=== PATIENT | female | born 1970 | race Caucasian/White ===

== ENCOUNTER 2023-06-16 07:45 | Emergency (ER) | payer OTHER, SELFPAY ==
--- NOTE | ~2023-06-16 | XR_ITS ---
XR chest 2V 06/16/2023 09:13 Indication: Cough and shortness of breath Procedure: 2 view chest Comparison: No prior studies for comparison. Findings: Cardiomegaly. Mild interstitial edema. No pleural effusion. No pneumothorax. No acute osseo us abnormality. Impression: 1: Cardiomegaly with mild interstitial edema. Reviewed, dictated and finalized at location B. ES PLAYER Impression: 1: Cardiomegaly with mild interstitial edema.
[2023-06-16 07:52] VITALS: BP 149/100; PULSE 102; RESP 18; TEMP 36.4; O2SAT 96
[2023-06-16 07:57] VITALS: O2SAT 96
[2023-06-16 08:39] VITALS: PULSE 102; RESP 20
[2023-06-16] MEDS: ALBUTEROL SULFATE NEB 2.5 MG/3 ML INH INHALATION (08:40)
[2023-06-16] MEDS: IPRATROPIUM BR 0.02% INH SOLN 0.5 MG/2.5 ML VIAL INHALATION (08:40)
[2023-06-16 08:42] LABS: Basophils Absolute Auto 0.1 K/mm3 (0.0-0.1); Basophils Percent Auto 0.4 % (0.2-1.2); Eosinophils Absolute Auto 0.5 K/mm3 (0-0.3); Eosinophils Percent Auto 2.8 % (0-4.4); Hematocrit 39.2 % (37.0-47.0); Hemoglobin 13.4 g/dL (12.0-15.0); Immature Granulocyte Absolute 0.16 K/mm3 (0.00-0.031); Lymphocytes Absolute Auto 1.93 K/mm3 (0.9-3.2); Lymphocytes Percent Auto 11.5 % (18.3-44.2); Mean Corpuscular HGB Conc 34.2 g/dl (32-36); Mean Platelet Volume 10.4 fl (7.4-10.4); Monocytes Absolute Auto 1.1 K/mm3 (0.1-0.6); Monocytes Percent Auto 6.8 % (2.6-8.5); Neutrophils Absolute Auto 12.9 K/mm3 (1.3-6.7); Neutrophils Percent Auto 77.5 % (45.5-73.1); Platelet Count Result 378 k/mm3 (150-375); Red Blood Count 3.53 M/mm3 (4.2-5.4); White Blood Count 16.7 K/mm3 (4.5-10.0)
[2023-06-16 08:50] LABS: Alanine Aminotransferase 18 U/L (6-35); Albumin Level 3.9 g/dL (3.5-5.1); Alkaline Phosphatase 98 U/L (38-126); Anion Gap 8 mmol/L (8-16); Aspartate Amino Transferase 20 U/L (14-36); Bilirubin,Total 0.5 mg/dL (0.2-1.3); Blood Urea Nitrogen 8 mg/dL (7-17); Carbon Dioxide 25 mmol/L (22-30); Chloride 104 mmol/L (98-107); Estimated CRCL calculation 83 ml/min; Estimated Glomerular Filt Rate > 60; Glucose 114 mg/dL (65-110); Potassium 3.6 mmol/L (3.4-5.0); Sodium 137 mmol/L (137-145)
--- NOTE | 2023-06-16 09:20 | ECG_ITS ---
Measurements Intervals [place] Rate: 85 P: 42 MS: 155 QRS: -76 QRSD: 97 T: 17 QT: 364 QTc: 435 Interpretive Statements SINUS RHYTHM INCOMPLETE RIGHT BUNDLE BRANCH BLOCK LEFT ANTERIOR FASCICULAR BLOCK ANTEROSEPTAL INFARCT, AGE INDETERMINATE BORDERLINE T WAVE ABNORMALITY- ANTEROLAT/INF LEADS ABNORMAL ECG NO PREVIOUS ECG AVAILABLE FOR COMPARISON Electronically Signed On 06-16-2023 10:30:06 PERMASTONE APPLICATOR by Jomar Roper D.O.
[2023-06-16 09:34] LABS: Platelet Estimate Adequate (Adequate); Schistocytes None Seen (NORMAL)
[2023-06-16 09:35] LABS: Large Platelets Present; Poikilocytosis 1+ (NORMAL)
[2023-06-16 09:50] LABS: NT Pro B Type Natriuretic Pept 100 pg/mL (19.9-100)
--- NOTE | 2023-06-16 11:53 | ED.GENADULT ---
HPI - General Adult General Chief complaint: Upper Respiratory Infection Stated complaint: sob, sick for a month Time Seen by Provider: 06/16/23 07:58 History of Present Illness HPI narrative: Patient is a 53-year-old female who presents ER with shortness of breath and cough. Reports she has been sick over last month. She has been on a couple rounds of antibiotics and has 1 Macrobid left for UTI. She has history of being immunocompromised due to her RA but she recently. Medications due to her illness. She is not currently taking any prednisone. No orthopnea. No lower extremity swelling. No chest pain or chest pressure. Related Data Home Medications Medication Instructions Recorded Confirmed leflunomide 20 mg tablet 20 mg PO DAILY 12/14/20 12/18/20 prednisone 5 mg tablet 5 mg PO DAILY 12/14/20 12/18/20 Allergies Allergy/AdvReac Type Severity Reaction Status Date / Time codeine AdvReac Intermediate GI UPSET Verified 06/16/23 08:36 Review of Systems Review of Systems: All systems reviewed & are unremarkable except as noted in HPI and below Constitutional: Constitutional: Denies chills, Reports fatigue and Denies fever(s) ENT: Denies nasal congestion and Denies sore throat Cardiovascular: Cardiovascular: Denies chest pain, Denies rapid heart rate and Denies radiating jaw, neck or arm pain Respiratory: Respiratory: Reports chest congestion, Reports cough, Reports dyspnea and Denies wheezing Gastrointestinal: Gastrointestinal: Denies abdominal pain, Denies nausea and Denies vomiting Genitourinary: Genitourinary: Reports no additional female genitourinary complaints PMFSH Past Medical History Medical History History of colon polyps History of vaginal delivery x 3 Psoriatic arthritis Rheumatoid arthritis Surgical History Surgical History History of carpal tunnel surgery bilateral 2004 History of colonoscopy with polypectomy 2018 History of decompression of ulnar nerve Bilateral 2004 History of dilation and curettage History of laparoscopy 1196 1996 History of tubal ligation 1991 [place] teeth removed 1998 Family History Family History Father Alcoholism Lung cancer Brain cancer Hypertension Cerebrovascular accident Mother Hypertension Sibling Alcoholism Grandparent Stomach cancer Skin cancer Malignant neoplasm of prostate Hypertension Social History Social History Smoking status: Current every day smoker Alcohol intake: never Substance use: never Living arrangements: with family Exam Narrative: GENERAL: Well-appearing, well-nourished, and in no acute distress. HEAD: Normocephalic, atraumatic. EYES: PERRL and EOMI. ENT: Mucous membranes moist. CHEST: Clear to auscultation. No respiratory distress. HEART: Regular rate and rhythm. Normal peripheral pulses. ABDOMEN: Soft, nontender, nondistended. EXTREMITIES: Normal range of motion. No edema. SKIN: Warm, dry, no rash. NEURO: Alert and oriented x3. PSYCH: Normal mood and affect. Course Course Emergency Course: Patient looks well with leukocytosis and abnormal chest x-ray. She is not hypoxic and has normal lung sounds. BMP within normal limits. Patient will be treated with Augmentin as well as doxycycline. Vital Signs Vital signs: Vital Signs Temperature 97.6 F 06/16/23 07:52 Pulse Rate 102 H 06/16/23 07:52 Respiratory Rate 18 06/16/23 07:52 Blood Pressure 149/100 H 06/16/23 07:52 Pulse Oximetry 96 06/16/23 07:52 Oxygen Delivery Room Air 06/16/23 07:52 Temperature 97.6 F 06/16/23 07:52 Pulse Rate 97 06/16/23 12:10 Respiratory Rate 18 06/16/23 12:10 Blood Pressure 150/96 H 06/16/23 12:10 Pulse Oximetry 99 06/16/23 12:10 Oxygen Delivery
[2023-06-16 12:10] VITALS: BP 150/96; PULSE 97; RESP 18; O2SAT 99
== END 2023-06-16 12:11 | disposition home or self-care (01) ==
PROVIDERS: Emergency Provider Emergency Medicine
DX: J18.9 Pneumonia, unspecified organism (principal); R94.31 Abnormal electrocardiogram [ECG] [EKG]; M06.9 Rheumatoid arthritis, unspecified
CPT/HCPCS: 36415; 71046; 80053; 83880; 85025; 93005; 94640; 99283

== ENCOUNTER 2023-08-13 18:15 | Observation (INO) | payer OTHER, SELFPAY ==
--- NOTE | ~2023-08-13 | CT_ITS ---
EXAMINATION: CTA brain carotid DATE: 08/14/2023 02:04 INDICATION: Left-sided ptosis. Headache. TECHNIQUE: Computed tomographic angiography (CTA) of the head was performed without and with 100 mL O mnipaque-350 intravenous contrast. CTA of the neck was performed with intravenous contrast. Automated exposure control and iterative reconstruction technique were employed. The dose-length product was 1 741.04 mGy-cm. Maximum intensity projection and volume rendered 3D-reconstructions were created by e technologist on a separate workstation. COMPARISON: None. FINDINGS: HEAD CTA: There is no intracranial hemorrhage, acute infarction, or abnormal intracranial mass lesion . The ventricles are normal in size. The orbits are normal. There is mild mucosal thickening in the e thmoid sinuses. The mastoid air cells are normal. Left vertebral artery is dominant. There is no sign ificant stenosis of basilar artery or the posterior cerebral arteries. The posterior communicating ar teries are normal. There is no significant stenosis of the intracranial internal carotid arteries or anterior or middle cerebral arteries. Anterior communicating artery is normal. There is no aneurysm. NECK CTA: There are nodules in thyroid measuring up to 11 mm, likely not clinically significant. Ther e are no pathologically enlarged lymph nodes. There is no significant stenosis of the vertebral arter ies. There is no visible plaque in the proximal internal carotid arteries. There is 0% stenosis of th e proximal right internal carotid artery relative to normal distal artery lumen diameter (NASCET crit eria). There is 0% stenosis of the proximal left internal carotid artery relative to normal distal ar abigail lumen diameter. There is mild cervical spondylosis. IMPRESSION: 1. Normal brain. No aneurysm or significant intracranial arterial stenosis. 2. 0% stenosis of the proximal internal carotid arteries relative to normal distal artery lumen diame ters (NASCET criteria). Reviewed, dictated and finalized at location E. CUTTING MACHINE OPERATOR IMPRESSION: 1. Normal brain. No aneurysm or significant intracranial arterial stenosis. 2. 0% stenosis of the proximal internal carotid arteries relative to normal dis moni artery lumen diameters (NASCET criteria).
--- NOTE | ~2023-08-13 | XR_ITS ---
EXAMINATION: XR chest 2V DATE: 08/14/2023 02:03 INDICATION: Left-sided ptosis. TECHNIQUE: Frontal and lateral views of the chest were obtained. COMPARISON: Chest 2 views 06/16/2023 FINDINGS: There is no pneumonia, pleural effusion, or pneumothorax. The heart size is normal. There i s mild chronic anterior wedging of T11 vertebral body. IMPRESSION: 1. No acute cardiopulmonary disease. Reviewed, dictated and finalized at location E. INUOUS IMPROVEMENT INTERN
--- NOTE | ~2023-08-13 | MR_ITS ---
EXAMINATION: MR brain/brain stem wo/w con DATE: 08/14/2023 08:01 INDICATION: Left-sided ptosis. Headache. TECHNIQUE: Magnetic resonance imaging (MRI) of the brain and brainstem was performed without and with 14 mL MultiHance intravenous contrast. COMPARISON: Head CT 08/14/2023 FINDINGS: There are scattered areas of nonspecific increased T2-weighted signal intensity in the cere bral white matter, which is within normal limits for the patient's age. There is no intracranial hemo rrhage, acute infarction, or abnormal intracranial mass lesion. The ventricles are normal in size. Th ere is mild mucosal thickening in the ethmoid sinuses. The mastoid air cells are normal. The orbits a re normal. IMPRESSION: 1. Normal aging brain. Reviewed, dictated and finalized at location E. NING TECHNICIAN IMPRESSION: 1. Normal aging brain.
[2023-08-13 18:23] VITALS: BP 177/97; PULSE 83; RESP 18; TEMP 36.9; O2SAT 100
[2023-08-14] VITALS (11 sets, daily range): BP systolic 141–183; BP diastolic 79–100; PULSE 65–85; RESP 14–18; TEMP 36.4–36.8; O2SAT 95–100
--- NOTE | 2023-08-14 00:10 | ECG_ITS ---
Measurements Intervals [place] Rate: 75 P: -25 IA: 154 QRS: -60 QRSD: 102 T: -4 QT: 415 QTc: 466 Interpretive Statements SINUS RHYTHM INCOMPLETE RIGHT BUNDLE BRANCH BLOCK LEFT ANTERIOR FASCICULAR BLOCK BORDERLINE T WAVE ABNORMALITY- ANT/INF LEADS BASELINE ARTIFACT- AVL, AVF ABNORMAL ECG COMPARED TO ECG 06/16/2023 09:56:30 NO SIGNIFICANT CHANGES Electronically Signed On 08-14-2023 6:35:39 RESPIRATORY THERAPY ASSISTANT by Jomar Roper D.O.
--- NOTE | 2023-08-14 00:14 | ED.GENADULT ---
HPI - General Adult General Chief complaint: Unspecified <ALEM Christy Last Filed: 08/14/23 03:29> Stated complaint: h/a, droopy left eye lid no other symptoms <ALEM Christy Last Filed: 08/14/23 03:29> Time Seen by Provider: 08/13/23 23:54 <ALEM Christy Last Filed: 08/14/23 03:29> History of Present Illness HPI narrative: 53-year-old female with a history of RA reports for evaluation for left eye ptosis that started today when she woke up. Patient states that she has been having headaches since February 02 that have progressively been getting worse. She states this morning she woke up with a severe headache and noticed left eyelid drooping. States she went to work and her co-worker pointed out which prompted her to come to the ED. she states her headache is all over and seems to extend down into her neck. She reports increased left-sided blurred vision especially at a distance but denies diplopia or loss of vision. She denies recent injury or trauma to this area or her head. She is not anticoagulated. Denies syncope, focal numbness or weakness, chest pain or shortness of breath, palpitations, recent medication changes , fever. patient states that she feels that the ptosis has worsened as the day has progressed. No prior history of myasthenia gravis <ALEM Christy Last Filed: 08/14/23 03:29> Related Data Home medications: Home Medications Medication Instructions Recorded Confirmed leflunomide 20 mg tablet 20 mg PO DAILY 12/14/20 08/14/23 azathioprine 50 mg tablet 50 mg PO DAILY 08/14/23 08/14/23 hydroxyzine HCl 25 mg tablet 25 mg PO TID PRN ITCHING 08/14/23 08/14/23 <ALEM Christy Last Filed: 08/14/23 03:29> Allergies/adverse reactions: Allergies Allergy/AdvReac Type Severity Reaction Status Date / Time codeine AdvReac Intermediate GI UPSET Verified 06/16/23 08:36 <ALEM Christy Last Filed: 08/14/23 03:29> Review of Systems Review of Systems: CONSTITUTIONAL: Denies fever, chills, or sweats. EYES: Denies visual changes, redness, or discharge. ENT: Denies rhinorrhea, congestion, sore throat, or otalgia. CARDIOVASCULAR: Denies chest pain, palpitations, or edema. RESPIRATORY: Denies cough or dyspnea. GASTROINTESTINAL: Denies abdominal pain, nausea, vomiting, or diarrhea. GENITOURINARY: Denies dysuria or hematuria. SKIN: Denies rash or itching. MUSCULOSKELETAL: Denies back pain, joint pain, or myalgia. NEUROLOGIC: see HPI PSYCHIATRIC: Denies anxiety or depression. <Stephanie Tom PA-C - Last Filed: 08/14/23 03:29> [facility] Past Medical History Medical History: Medical History History of colon polyps History of vaginal delivery x 3 Psoriatic arthritis Rheumatoid arthritis <Stephanie Tom PA-C - Last Filed: 08/14/23 03:29> Surgical History Surgical History: Surgical History History of carpal tunnel surgery bilateral 2004 History of colonoscopy with polypectomy 2018 History of decompression of ulnar nerve Bilateral 2005 History of dilation and curettage History of laparoscopy 1196 1996 History of tubal ligation 1991 [place] teeth removed 1998 <Stephanie Tom PA-C - Last Filed: 08/14/23 03:29> Family History Family History: Family History Father Alcoholism Lung cancer Brain cancer Hypertension Cerebrovascular accident Mother Hypertension Sibling Alcoholism Grandparent Stomach cancer Skin cancer Malignant neoplasm of prostate Hypertension <Stephanie Tom PA-C - Last Filed: 08/14/23 03:29> Social History Social History: Social History Smoking status: Former smoker Smoking end date: 06/13/23 Alcohol
[2023-08-14] MEDS: SODIUM CHLORIDE 0.9% IV 1,000 ML 999 ML IV CONT (00:44)
[2023-08-14] MEDS: diphenhydrAMINE HCl INJ 50 MG/ML VIAL 25 MG IV PUSH (00:44)
[2023-08-14] MEDS: ACETAMINOPHEN 500 MG TABLET 1000 MG PO (00:44)
[2023-08-14] MEDS: PROCHLORPERAZINE EDISYLATE 10 MG/2 ML VIAL IV PUSH (00:44)
[2023-08-14 00:46] LABS: Basophils Percent Auto 0.7 % (0.2-1.2); Eosinophils Absolute Auto 0.3 K/mm3 (0-0.3); Eosinophils Percent Auto 5.3 % (0-4.4); Hemoglobin 12.1 g/dL (12.0-15.0); Immature Granulocyte Absolute 0.01 K/mm3 (0.00-0.031); Immature Granulocyte Percent A 0.2 % (0-0.5); Mean Corpuscular HGB Conc 32.7 g/dl (32-36); Mean Corpuscular Hemoglobin 36.4 pg (26-34); Mean Corpuscular Volume 111.4 fl (80-100); Mean Platelet Volume 9.7 fl (7.4-10.4); Monocytes Absolute Auto 0.4 K/mm3 (0.1-0.6); Monocytes Percent Auto 7.4 % (2.6-8.5); Neutrophils Absolute Auto 2.1 K/mm3 (1.3-6.7); Neutrophils Percent Auto 37.4 % (45.5-73.1); Platelet Count Result 328 k/mm3 (150-375); Red Blood Count 3.32 M/mm3 (4.2-5.4); Red Cell Distribution Width 13.4 % (11.5-14.5); White Blood Count 5.5 K/mm3 (4.5-10.0)
[2023-08-14 01:04] LABS: Prothrombin Time 13.6 Seconds (11.1-14.7)
[2023-08-14 01:05] LABS: Partial Thromboplastin Time 31.9 SECONDS (22.3-36.8)
[2023-08-14 01:07] LABS: Macrocytosis 1+ (NORMAL); Platelet Estimate Adequate (Adequate); Schistocytes None Seen (NORMAL)
[2023-08-14 01:25] LABS: Alanine Aminotransferase 16 U/L (6-35); Alkaline Phosphatase 85 U/L (38-126); Anion Gap 6 mmol/L (8-16); Aspartate Amino Transferase 29 U/L (14-36); Bilirubin,Total 0.4 mg/dL (0.2-1.3); Blood Urea Nitrogen 13 mg/dL (7-17); Carbon Dioxide 27 mmol/L (22-30); Chloride 108 mmol/L (98-107); Estimated CRCL calculation 81 ml/min; Estimated Glomerular Filt Rate > 60; Glucose 91 mg/dL (65-110); Potassium 3.3 mmol/L (3.4-5.0); Sodium 141 mmol/L (137-145)
[2023-08-14 01:37] LABS: Troponin I < 0.012 ng/mL (0.000-0.034)
[2023-08-14 02:24] LABS: Appearance Urine Clear (Clear); Bilirubin Urine Negative (Negative); Blood Urine Negative (Negative); Color Urine Yellow (Yellow); Glucose Urine UA Negative (Negative); Ketones Urine Negative (Negative); Leukocyte Esterase Ur Negative LEU/UL (Negative); Nitrate Urine Negative (Negative); Protein Urine Negative (Negative); Specific Grav Ur 1.004 (1.001-1.035); Urobilinogen Urine 0.2 mg/dL (<2.0)
[2023-08-14] MEDS: POTASSIUM CHLORIDE 20 MEQ PACKET (FOR LIQUID) PO (02:25)
[2023-08-14 02:31] LABS: Add Urine Microscopic? NO
[2023-08-14 03:08] LABS: Magnesium 2.1 mg/dL (1.6-2.3)
[2023-08-14] MEDS: KETOROLAC 30 MG/ML VIAL (*BKC) IV PUSH (03:14)
--- NOTE | 2023-08-14 06:20 | ADMGEN ---
This patient, Elvira Morataya, was admitted to -. Patient/family oriented to hospital policies and general routines including ID bracelet, bed and alarms, visiting hours, pain management, procedures, bathroom and other care routines, personal items, smoking policy, room service/diet, and visiting hours. Information on how to activate the Rapid Response Team has been discussed. Patient/Family are encouraged to report perceived risks to care and to ask questions if they do not understand what they are told or what they should do.
--- NOTE | 2023-08-14 06:26 | ADMGEN ---
This patient, Elvira Morataya, was admitted to Medical Room 261-01. Patient/family oriented to hospital policies and general routines including ID bracelet, bed and alarms, visiting hours, pain management, procedures, bathroom and other care routines, personal items, smoking policy, room service/diet, and visiting hours. Information on how to activate the Rapid Response Team has been discussed. Patient/Family are encouraged to report perceived risks to care and to ask questions if they do not understand what they are told or what they should do.
[2023-08-14] MEDS: ACETAMINOPHEN 325 MG TABLET 650 MG PO ×2 (06:42→21:11)
--- NOTE | 2023-08-14 07:30 | PM.IMHP ---
H&P: HPI History of Present Illness Date/Time: 08/14/23 07:30 Chief Complaint: Left eyelid droop Narrative: 53-year-old female with hypertension, rheumatoid arthritis presented ED with a chief complaint of left eyelid drooping. Patient had a severe headache yesterday morning, a noted left eyelid drooping, patient denies focal weakness, unstable gait, head trauma, fever, chills nausea vomiting chest pain shortness of breath. Patient has blurred I vision of left eye. Patient denies vision loss, double vision. Patient came to ED for evaluation treatment. In the ED, patient was afebrile, uncontrolled blood pressure, ?CT head shows no hemorrhage, hydrocephalus, mass effect or herniation.? CTA? head and neck shows no acute occlusion, severe stenosis or aneurysm.? There is no evidence of dissection.? There is an 11 mm right thyroid gland nodule.? CBC without leukocytosis or anemia.? Chemistries show potassium of 3.3, chloride of 108, otherwise unremarkable.? Magnesium 2.1.? .? Urinalysis is unremarkable.? Troponin less than 0.012.? EKG. CBC shows sinus rhythm, incomplete right bundle-branch block, no ischemic changes. Patient received potassium chloride in the ED, we admit patient for further radiation treatment Review of Systems Review of Systems: ROS negative except above PMFSH Past Medical History Medical History History of colon polyps History of vaginal delivery x 3 Psoriatic arthritis Rheumatoid arthritis Surgical History Surgical History History of carpal tunnel surgery bilateral 2004 History of colonoscopy with polypectomy 2018 History of decompression of ulnar nerve Bilateral 2004 History of dilation and curettage History of laparoscopy 1196 1996 History of tubal ligation 1991 [place] teeth removed 1998 Family History Family History Father Alcoholism Lung cancer Brain cancer Hypertension Cerebrovascular accident Mother Hypertension Sibling Alcoholism Grandparent Stomach cancer Skin cancer Malignant neoplasm of prostate Hypertension Social History Social History Smoking status: Former smoker Smoking end date: 06/13/23 Alcohol intake: never Substance use: never Substance use type: does not use Do You Feel Safe in your Home?: Yes Lack of Transportation: No Lack of Food: Never True Current Housing: I Have Housing Concerned About Future Housing: No Difficulty Paying Gas/Electric Bills: No Difficulty Paying for Meds: No Currently Unemployed: No Education: Associate Degree Difficulty w/ Childcare or Family Care: No Living arrangements: with family Spiritual care concerns: No Meds Home Medications and Allergies Home Medications Medication Instructions Recorded Confirmed Type leflunomide 20 mg tablet 20 mg PO DAILY 12/14/20 08/14/23 History azathioprine 50 mg tablet 50 mg PO DAILY 08/14/23 08/14/23 History hydroxyzine HCl 25 mg tablet 25 mg PO TID PRN ITCHING 08/14/23 08/14/23 History Allergies Allergy/AdvReac Type Severity Reaction Status Date / Time codeine AdvReac Intermediate GI UPSET Verified 06/16/23 08:36 Vital Signs Vital Signs - 24 hr 08/13/23 18:23 08/14/23 01:28 08/14/23 04:10 Temperature 98.4 F Pulse Rate 83 74 77 Respiratory Rate 18 14 15 Blood Pressure 177/97 H 169/100 H 141/82 H Pulse Oximetry 100 98 97 Oxygen Delivery Room Air 08/14/23 05:41 08/14/23 06:40 08/14/23 06:54 Temperature 97.7 F Pulse Rate 77 65 Respiratory Rate 15 18 Blood Pressure 162/80 H 154/98 H 180/100 H Pulse Oximetry 96 100 Oxygen Delivery 08/14/23 06:59 Temperature Pulse Rate Respiratory Rate Blood Pressure Pulse Oximetry Oxygen Delivery Room Air Exam Narrative: GENERAL: [place]
[2023-08-14 08:26] LABS: Cholesterol 191 mg/dL (0-200); HDL Direct 67 mg/dL; Triglycerides 73 mg/dL (<150)
[2023-08-14] MEDS: ATORVASTATIN 40 MG TABLET PO (08:30)
[2023-08-14] MEDS: LEFLUNOMIDE 20 MG TABLET PO (08:30)
[2023-08-14] MEDS: azaTHIOprine 50 MG TABLET PO (08:30)
[2023-08-14 08:37] LABS: LDL Cholesterol Direct 92 mg/dL
[2023-08-14] MEDS: ASPIRIN 81 MG CHEWABLE TABLET 324 MG PO (08:37)
--- NOTE | 2023-08-14 09:42 | WPDNEURCNPN ---
Assessment and Plan Assessment and plan (1) Ptosis: Qualifiers: Laterality: left Qualified Code(s): H02.402 - Unspecified ptosis of left eyelid Code(s): H02.409 - Unspecified ptosis of unspecified eyelid Status: Acute (2) Headache: Qualifiers: Headache chronicity pattern: chronic headache Headache type: unspecified Intractability: not intractable Qualified Code(s): R51.9 - Headache, unspecified; G89.29 - Other chronic pain Code(s): R51.9 - Headache, unspecified Status: Acute (3) Hypertensive urgency: Code(s): I16.0 - Hypertensive urgency Status: Acute Plan Ms. Flowers is a 53 year old female with a history of rheumatoid arthritis presenting for evaluation of drooping of L eyelid that seemed to happen quite acutely. MRI brain was negative for stroke. On exam it looks more like she has dermatochalasis of L eyelid giving the appearance of pseudo-ptosis rather than true ptosis (the eyelid itself does not cover the pupil). However, the acute nature of the symptoms is unusual. She does not have any other symptoms suggestive of myasthenia gravis. - I would recommend close ophthalmology evaluation -- if they feel that this is true ptosis then I am happy to further work-up the cause of that. - Ok to normalize blood pressure, hypertension could be contributing to her headaches Consult date: 08/14/23 Reason for consult: L eyelid dropping HPI: Elvira Morataya is a 53 year old female with a history of RA presenting for evaluation of drooping of L eyelid. Patient reports that she woke-up yesterday and noticed that her L eyelid was drooping. It was actually pointed out to her by a colleague. She denied any other focal weakness, numbness, speech changes. She denies any double vision but does feel that the vision in her L eye is blurrier than baseline. She felt that the L eyelid drooping worsened throughout the day, which is what prompted her to be evaluated. In the ED, she was notably hypertensive with blood pressure up to 180s systolic. CT head and CTA sachi/carotid were negative. MRI brain was read as normal as well. Her blood pressure remains elevated, with it being 180/100 this morning. Patient denies any double vision, dysphagia, dysarthria, or weakness of the extremities. She denies any shortness of breath or difficulty breathing. She has a history of RA for which she takes leflunomide and azathioprine. Review of Systems Review of Systems: All systems reviewed & are unremarkable except as noted in HPI and below PMFSH Past Medical History Medical History History of colon polyps History of vaginal delivery x 3 Psoriatic arthritis Rheumatoid arthritis Surgical History Surgical History History of carpal tunnel surgery bilateral 2005 History of colonoscopy with polypectomy 2018 History of decompression of ulnar nerve Bilateral 2005 History of dilation and curettage History of laparoscopy 1196 1996 History of tubal ligation 1990 [place] teeth removed 1998 Family History Family History Father Alcoholism Lung cancer Brain cancer Hypertension Cerebrovascular accident Mother Hypertension Sibling Alcoholism Grandparent Stomach cancer Skin cancer Malignant neoplasm of prostate Hypertension Social History Social History Smoking status: Former smoker Smoking end date: 06/13/23 Alcohol intake: never Substance use: never Substance use type: does not use Do You Feel Safe in your Home?: Yes Lack of Transportation: No Lack of Food: Never True Current Housing: I Have Housing Concerned About Future Housing: No Difficulty Paying Gas/Electric Bills: No Difficulty Paying for Meds: No Currently Unemployed: No Education: Asso
--- NOTE | 2023-08-14 11:02 | ECHO_ITS ---
Patient Info Name: Elvira Morataya Age: 53 years : 1970 Gender: Female Ht: 60 in Wt: 160 lbs BSA: 1.78 m2 HR: 67 bpm BP: 183 / 97 mmHg Heart Rhythm: Sinus Rhythm Technical Quality: Good Exam Date: 08/14/2023 1:22 PM Exam Location: Echo Lab Patient Status: Outpatient Admit Date: 08/14/2023 Staff Ordering Physician: Karlos Glass MD Die Maintenance Technician: Sonia Lima RDCS Attending Provider: Ishaan Concepcion MD Exam Type: CA echo doppler w bubble study Study Info Indications - risk of TIA Complete two-dimensional, color flow and Doppler transthoracic echocardiogram is performed with agitated saline. Contrast/Agitated Saline Contrast/Ag. Saline: Agitated Saline Amount: 20.00 ml Summary 1. Normal left ventricular size and thickness with good contractility of all segments. Ejection fraction 65-70%. Normal diastolic function. 2. No significant valve disease. 3. Normal estimated pulmonary pressure. 4. No evidence of intracardiac shunting during normal respiration and Valsalva by bubble study. 5. The underlying rhythm is probably atrial fibrillation. Left Ventricle Left ventricular chamber dimension is normal. Left ventricular systolic function is normal, estimated at 65-70%. There is no increased left ventricular wall thickness. Left ventricular septal wall motion is normal. The left ventricular diastolic function is normal. Right Ventricle Right ventricular chamber dimension is normal. Right ventricular systolic function is normal. Left Atria Left atrial chamber dimension is normal. Right Atria Right atrial chamber dimension is normal. Aortic Valve The aortic valve is trileaflet. There is no aortic valve sclerosis. There is no aortic valve stenosis. There is no aortic valve regurgitation. Pulmonic Valve The pulmonic valve is normal. There is no pulmonic valve stenosis. There is no pulmonic regurgitation. Mitral Valve The mitral valve has normal leaflets. There is no mitral valve stenosis. There is trace mitral valve regurgitation. Tricuspid Valve The tricuspid valve leaflets are normal. There is no significant tricuspid valve stenosis. There is trace tricuspid valve regurgitation. No pulmonary hypertension, estimated pulmonary arterial systolic pressure is 21 mmHg. Pericardium/Pleural The pericardium appears normal. There is no pericardial effusion. Inferior Vena Cava Normal inferior vena cava with >50% collapse upon inspiration consistent with Empty right atrial pressure, 10 mmHg. Aorta The aortic root size at the sinus of Valsalva is normal. The prox ascending aorta size is normal. Left Ventricular Outflow Tract Name Value Normal LVOT 2D LVOT Diameter 1.8 cm LVOT Doppler LVOT Peak Gradient 4 mmHg LVOT Mean Gradient 2 mmHg LVOT VTI 20 cm LVOT VTI/AV VTI Ratio 0.7 LVOT Stroke Volume 53 ml LVOT CO 3.9 l/min LVOT CI 2.2 l/min/m2 Pulmonic Valve
[2023-08-14] MEDS: amLODIPine BESYLATE 5 MG TABLET 10 MG PO (15:51)
[2023-08-14] MEDS: hydroCHLOROthiazide 25 MG TABLET PO (15:51)
[2023-08-14] MEDS: oxyCODONE HCL (*CRX) 5 MG TAB IR PO (15:54)
[2023-08-15] MEDS: hydrOXYzine HCL 25 MG TABLET PO (05:46)
[2023-08-15 05:58] VITALS: BP 148/97; PULSE 95; RESP 18; TEMP 36.8; O2SAT 97
--- NOTE | 2023-08-15 08:39 | PM.IMPN ---
Progress Note: A&P Assessment and Plan (1) TIA (transient ischemic attack): Code(s): G45.9 - Transient cerebral ischemic attack, unspecified Status: Acute (2) Ptosis: Qualifiers: Laterality: left Qualified Code(s): H02.402 - Unspecified ptosis of left eyelid Code(s): H02.409 - Unspecified ptosis of unspecified eyelid Status: Acute (3) Headache: Qualifiers: Headache chronicity pattern: chronic headache Headache type: unspecified Intractability: not intractable Qualified Code(s): R51.9 - Headache, unspecified; G89.29 - Other chronic pain Code(s): R51.9 - Headache, unspecified Status: Acute (4) Hypertensive urgency: Code(s): I16.0 - Hypertensive urgency Status: Acute Plan 53-year-old female with? hypertension, rheumatoid arthritis presented ED with a chief complaint of left eyelid drooping.? Patient had a severe headache yesterday morning, a noted left eyelid drooping, patient denies focal weakness, unstable gait, head trauma, fever, chills nausea vomiting chest pain shortness of breath.? Patient has blurred I vision of left eye.? Patient denies vision loss, double vision.? Patient came to ED for evaluation treatment.? In the ED, patient was afebrile, uncontrolled blood pressure, ?CT head shows no hemorrhage, hydrocephalus, mass effect or herniation.? CTA? head and neck shows no acute occlusion, severe stenosis or aneurysm.? There is no evidence of dissection.? There is an 11 mm right thyroid gland nodule.? CBC without leukocytosis or anemia.? Chemistries show potassium of 3.3, chloride of 108, otherwise unremarkable.? Magnesium 2.1.? .? Urinalysis is unremarkable.? Troponin less than 0.012.? EKG. CBC shows sinus rhythm, incomplete right bundle-branch block, no ischemic changes.? Patient received potassium chloride in the ED, we admit patient for further radiation treatment Left ptosis Patient had a sudden onset left eyelid droop, blurred vision, no focal weakness CT head and CTA HEAD AND neck unremarkable shows no acute intracranial issues or large vessel occlusion Possible TIA Order MRI of brain with without contrast, echocardiogram with bubble study Telemetry monitoring Aspirin 325 mg once, 81 mg daily p.o., Lipitor 40 mg daily p.o., follow lipid panel Neuro check fall precaution Consult neurologist 08/15: MR of brain showed normal aging brain has rule out stroke Left the ptosis has resolved Patient has an appointment with circus hand next week Headache Unclear etiology no history of migraine, trauma, possible due to uncontrolled hypertension MRI of the brain is ordered, shows normal aging brain Hypertension urgency ruled out stroke, resume home medication for hypertension Blood pressure is better controlled, continue amlodipine 10 mg daily p.o., hydrochlorothiazide 25 mg daily p.o., add losartan 50 mg once and daily p.o. Hypokalemia associated with hydrochlorothiazide start potassium chloride supplement Rheumatoid arthritis Continue home medications Continue azathioprine 50 mg daily p.o., leflunomide 20 mg daily p.o. Subjective Date/time seen: 08/15/23 08:39 Interval history: I saw and examined patient today. Left-sided ptosis has resolved. Headaches improving, blood pressure is better controlled. Patient denies focal weakness, vision change, Exam Narrative: GENERAL: Pleasant, in no acute distress. Well-nourished. - EYES: EOMI. Anicteric. Left eyelid droop, improving - HENT: Moist mucous membranes. - LUNGS: Clear to auscultation bilaterally, no wheezing, rhonchi, or rales. - CARDIOVASCULAR: Regular rate and rhythm. No murmur. No JVD. - ABDOMEN: Soft, non-tender and non-distended. No palpable masses. - EXTREMITIES: No edema. Peripheral pulses 2+. Non-tender. - NEUROLOGIC: No focal neurological deficits. CN II-XII grossly intact. - PSYCHIATRIC: Awake, Alert and oriented x 3. Appropriate mood and affect. - SKIN: No rashes or lesion
[2023-08-15 08:43] VITALS: BP 152/100; TEMP 37.7
[2023-08-15] MEDS: hydroCHLOROthiazide 25 MG TABLET PO (08:49)
[2023-08-15] MEDS: ASPIRIN 81 MG CHEWABLE TABLET PO (08:49)
[2023-08-15] MEDS: oxyCODONE HCL (*CRX) 5 MG TAB IR PO (08:49)
[2023-08-15] MEDS: LEFLUNOMIDE 20 MG TABLET PO (08:50)
[2023-08-15] MEDS: azaTHIOprine 50 MG TABLET PO (08:50)
[2023-08-15] MEDS: ATORVASTATIN 40 MG TABLET PO (08:50)
[2023-08-15] MEDS: amLODIPine BESYLATE 5 MG TABLET 10 MG PO (08:50)
[2023-08-15] MEDS: LOSARTAN POTASSIUM 50 MG TABLET PO (08:58)
[2023-08-15] MEDS: POTASSIUM CHLORIDE 20 MEQ PACKET (FOR LIQUID) 40 MEQ PO (08:58)
--- NOTE | 2023-08-15 09:21 | WPDNEUROPN ---
Progress Note: A&P Assessment and Plan (1) Hypertensive urgency: Code(s): I16.0 - Hypertensive urgency Status: Acute (2) Ptosis: Qualifiers: Laterality: left Qualified Code(s): H02.402 - Unspecified ptosis of left eyelid Code(s): H02.409 - Unspecified ptosis of unspecified eyelid Status: Acute Plan Ms. Flowers is a 53 year old female with a history of rheumatoid arthritis presenting for evaluation of drooping of L eyelid that seemed to happen quite acutely. MRI brain was negative for stroke. On exam it looks more like she has dermatochalasis of L eyelid giving the appearance of pseudo-ptosis rather than true ptosis (the eyelid itself does not cover the pupil). However, the acute nature of the symptoms is unusual. She does not have any other symptoms suggestive of myasthenia gravis. - Ok to discharge, - Follow-up in [facility] clinic in about 3 months Subjective Date/time seen: 08/15/23 09:21 Interval history: Elvira Morataya is a 53 year old female with a history of RA presenting for evaluation of drooping of L eyelid. Patient reports that she woke-up yesterday and noticed that her L eyelid was drooping. It was actually pointed out to her by a colleague. She denied any other focal weakness, numbness, speech changes. She denies any double vision but does feel that the vision in her L eye is blurrier than baseline. She felt that the L eyelid drooping worsened throughout the day, which is what prompted her to be evaluated. In the ED, she was notably hypertensive with blood pressure up to 180s systolic. CT head and CTA sachi/carotid were negative. MRI brain was read as normal as well. Her blood pressure remains elevated, with it being 180/100 this morning. Patient denies any double vision, dysphagia, dysarthria, or weakness of the extremities. She denies any shortness of breath or difficulty breathing. She has a history of RA for which she takes leflunomide and azathioprine. Patient's eyelid drooping has resolved. Blood pressure is better too but still elevated to 140-150s systolic. Review of Systems Review of Systems: All systems reviewed & are unremarkable except as noted in HPI and below Exam Const: General: comfortable and no acute distress HENMT: Mouth: Yes moist mucous membranes Eyes: Pupils: Equal, round and reactive pupils present EOM: EOMs intact bilaterally Other: Symmetric eyelids. No ptosis noted. Resp: Effort & Inspection: normal respiratory effort Skin: General skin exam: normal color Neuro: Other: Pupils equal and reactive bilaterally, EOMI, face symmetric, facial sensation intact, tongue protrudes midline, palate midline. Shoulder shrug normal. Strength 5/5 throughout. Sensation intact throughout, FNF normal bilaterally. Language comprehension and fluency intact. Gait deferred. Extrem: General: normal to inspection Psych: Mental Status: mental status grossly normal Affect: normal affect Objective Data Vital Signs Vital Signs: Vital Signs - 24 hr 08/14/23 11:41 08/14/23 14:41 08/14/23 16:44 Temperature 36.8 C 36.4 C L 36.5 C Pulse Rate 67 70 74 Respiratory Rate 16 16 18 Blood Pressure 183/97 H 178/98 H 152/95 H Pulse Oximetry 98 95 100 Oxygen Delivery 08/14/23 20:13 08/14/23 21:25 08/15/23 05:58 Temperature 36.6 C 36.8 C Pulse Rate 85 95 Respiratory Rate 18 18 Blood Pressure 148/79 H 148/97 H Pulse Oximetry 98 98 97 Oxygen Delivery Room Air 08/15/23 08:43 Temperature 37.7 C H Pulse Rate Respiratory Rate Blood Pressure 152/100 H Pulse Oximetry Oxygen Delivery Intake/Output Intake/Output: Intake & Output 08/12/23 08/13/23 08/14/23 08/15/23 23:59 23:59 23:59 23:59 Intake Total 1720 Balance 1720 Meds/Results Medications: Active Medications Generic Name Dose Route Start Last Admin Trade Name Freq PRN Reason Stop Dose Admin Acetaminophen 650 mg 08/14/23 08:06 08/14/23 21:11 Pelon
[2023-08-15 09:50] VITALS: BP 144/84
--- NOTE | 2023-08-15 10:35 | PM.DS ---
DS: Admitting Diagnosis Discharge Date 08/15/23 Admitting Diagnosis (1) TIA (transient ischemic attack): ?Code(s): G45.9 - Transient cerebral ischemic attack, unspecified ?Status:?Acute (2) Ptosis: ?Qualifiers: ?Laterality:?left? Qualified Code(s):?H02.402 - Unspecified ptosis of left eyelid ?Code(s): H02.409 - Unspecified ptosis of unspecified eyelid ?Status:?Acute (3) Headache: ?Qualifiers: ?Headache chronicity pattern:?chronic headache??Headache type:?unspecified??Intractability:?not intractable? Qualified Code(s):?R51.9 - Headache, unspecified; G89.29 - Other chronic pain ?Code(s): R51.9 - Headache, unspecified ?Status:?Acute (4) Hypertensive urgency: ?Code(s): I16.0 - Hypertensive urgency ?Status:?Acute DS: Discharge Diagnosis Discharge Diagnosis (1) TIA (transient ischemic attack): Code(s): G45.9 - Transient cerebral ischemic attack, unspecified Status: Acute (2) Ptosis: Qualifiers: Laterality: left Qualified Code(s): H02.402 - Unspecified ptosis of left eyelid Code(s): H02.409 - Unspecified ptosis of unspecified eyelid Status: Acute (3) Headache: Qualifiers: Headache chronicity pattern: chronic headache Headache type: unspecified Intractability: not intractable Qualified Code(s): R51.9 - Headache, unspecified; G89.29 - Other chronic pain Code(s): R51.9 - Headache, unspecified Status: Acute (4) Hypertensive urgency: Code(s): I16.0 - Hypertensive urgency Status: Acute DS: Summary Hospital Course Hospital Course: 53-year-old female with? hypertension, rheumatoid arthritis presented ED with a chief complaint of left eyelid drooping.? Patient had a severe headache yesterday morning, a noted left eyelid drooping, patient denies focal weakness, unstable gait, head trauma, fever, chills nausea vomiting chest pain shortness of breath.? Patient has blurred I vision of left eye.? Patient denies vision loss, double vision.? Patient came to ED for evaluation treatment.? In the ED, patient was afebrile, uncontrolled blood pressure, ?CT head shows no hemorrhage, hydrocephalus, mass effect or herniation.? CTA? head and neck shows no acute occlusion, severe stenosis or aneurysm.? There is no evidence of dissection.? There is an 11 mm right thyroid gland nodule.? CBC without leukocytosis or anemia.? Chemistries show potassium of 3.3, chloride of 108, otherwise unremarkable.? Magnesium 2.1.? .? Urinalysis is unremarkable.? Troponin less than 0.012.? EKG. CBC shows sinus rhythm, incomplete right bundle-branch block, no ischemic changes.? Patient received potassium chloride in the ED, we admit patient for further radiation treatment Left ptosis Patient had a sudden onset left eyelid droop, blurred vision, no focal weakness CT head and CTA HEAD AND neck unremarkable shows no acute intracranial issues or large vessel occlusion Possible TIA Order MRI of brain with without contrast, echocardiogram with bubble study Telemetry monitoring Aspirin 325 mg once, 81 mg daily p.o., Lipitor 40 mg daily p.o., follow lipid panel Neuro check fall precaution Consult neurologist 08/15: MR of brain showed normal aging brain has rule out stroke Left the ptosis has resolved 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 Hypokalemia associated with hydrochlorothiazide start potassium chloride supplement Rheumatoid arthritis Continue home medications Continue azathioprine 50 mg daily p.o., leflunomide 20 mg daily p.o.
[2023-08-15 11:23] LABS: Anion Gap 7 mmol/L (8-16); Blood Urea Nitrogen 11 mg/dL (7-17); Calcium 9.5 mg/dL (8.4-10.2); Carbon Dioxide 27 mmol/L (22-30); Chloride 105 mmol/L (98-107); Estimated CRCL calculation 81 ml/min; Estimated Glomerular Filt Rate > 60; Glucose 94 mg/dL (65-110); Potassium 4.4 mmol/L (3.4-5.0); Sodium 139 mmol/L (137-145)
== END 2023-08-15 12:02 | disposition home or self-care (01) ==
LOC: ANHED 08-14 03:28 → ANH2MED 08-14 13:41
PROVIDERS: Admitting Provider Internal Medicine; Emergency Provider Physician Assistant; PCP Family Medicine; Visit Provider Hospitalist
DX: G45.9 Transient cerebral ischemic attack, unspecified (principal); H02.402 Unspecified ptosis of left eyelid; R51.9 Headache, unspecified; I16.0 Hypertensive urgency; M06.9 Rheumatoid arthritis, unspecified; E87.6 Hypokalemia; L40.50 Arthropathic psoriasis, unspecified; E04.1 Nontoxic single thyroid nodule; I45.10 Unspecified right bundle-branch block; I44.4 Left anterior fascicular block; Z79.899 Other long term (current) drug therapy
CPT/HCPCS: 36415; 70496; 70498; 70553; 71046; 80048; 80053; 80061; 81003; 83735; 84484; 85025; 85610; 85730; 93005; 93306; 96361; 96374; 96375; 99285; A9270; A9577; G0378; J0780; J1200; J1885; J7030; Q9967

== ENCOUNTER 2023-10-21 11:14 | Outpatient (CLI) | payer OTHER, SELFPAY ==
--- NOTE | ~2023-10-21 | US_ITS ---
US soft tissue head and neck INDICATION: Sore throat for 4 months. TECHNIQUE: Real-time sonographic images of the thyroid gland were obtained. COMPARISON: No prior studies for comparison. FINDINGS: The right thyroid lobe measures 5.6 x 1.9 x 1.7 cm. The left thyroid lobe measures 4.6 x 1 .4 x 1.6 cm. There is normal echotexture and echogenicity throughout the thyroid gland. In the right lower there is a 1.4 cm cyst. There is a 6 mm cyst at the right lobe. In the left neck there is an ov al hypoechoic mass measuring 3.3 x 1.8 x 1.0 cm with effacement of the fatty hilum. There are additio nal smaller bilateral cervical lymph nodes, largest on the right measuring 2.7 x 1.8 x 0.8 cm. In the left lobe there is a 5 mm hypoechoic mass which is wider than tall, smoothly marginated, solid and n o echogenic foci. There are additional similar-appearing nodules in the left lobe, largest measuring 7 mm which is hypoechoic, wider than tall, smoothly marginated without echogenic foci, TR 4. Normal v ascular flow is present. IMPRESSION: 1. Bilateral cervical lymphadenopathy, many of which the lymph nodes have effacement of the fatty hi lum. Consider correlation with CT neck with contrast. 2: Bilateral thyroid nodules, likely benign multinodular goiter. Reviewed, dictated and finalized at location B. IMPRESSION: 1. Bilateral cervical lymphadenopathy, many of which the lymph nodes have effa cement of the fatty hilum. Consider correlation with CT neck with contrast. 2: Bilateral thyroid nodules, likely benign multinodular goiter.
== END 2023-10-21 11:15 ==
PROVIDERS: PCP Nurse Practitioner Family; Visit Provider Nurse Practitioner Family
DX: E04.2 Nontoxic multinodular goiter (principal); R59.0 Localized enlarged lymph nodes
CPT/HCPCS: 76536

== ENCOUNTER 2023-11-04 12:44 | Outpatient (CLI) | payer OTHER, SELFPAY ==
--- NOTE | ~2023-11-04 | CT_ITS ---
CT scan of the Neck Technique: 2.5 mm axial scans were obtained through the neck after intravenous administration of 75 c c Omnipaque 350. Coronal and sagittal reconstructions of the neck were obtained. Dose reduction techn ique was used on this scan by utilizing automated exposure control and iterative reconstruction techn ique. The dose-length product (DLP) was 360.85 mGy-cm. Clinical History: Cervical lymphadenopathy Findings: There are mildly enlarged bilateral level 2 cervical lymph nodes, nonspecific. Parapharyngeal spaces appear normal bilaterally. The parotid and submandibular glands appear normal. Possible pharyngitis, with mild thickening of the soft tissues of the pharynx.. No soft tissue masses are seen in the neck. The thyroid gland appears normal. Images of the lung apices reveal no abnormalities. Impression: Mildly enlarged bilateral level 2 cervical lymph nodes, nonspecific. Correlate for inflammatory/react latanya lymph nodes versus any possibility of lymphoma or other metastatic disease. Possible pharyngitis, as above. Reviewed, dictated and finalized at location . Impression: Mildly enlarged bilateral level 2 cervical lymph nodes, nonspecific. Correlate for inflammatory/reactive lymph nodes versus any possibility of lymphoma or oth er metastatic disease. Possible pharyngitis, as above.
[2023-11-04 13:03] LABS: Estimated Glomerular Filt Rate > 60
== END 2023-11-04 12:45 ==
LOC: MICIMG 12:45
PROVIDERS: PCP Family Medicine; Visit Provider Family Medicine
DX: R59.0 Localized enlarged lymph nodes (principal)
CPT/HCPCS: 70491; Q9967

== ENCOUNTER 2024-09-30 14:49 | Emergency (ER) | payer OTHER, SELFPAY ==
--- NOTE | 2024-09-30 14:53 | ED_ITS ---
HPI - Ear Problem General Chief complaint: Ear Stated complaint: bilateral Ear Pain Time Seen by Provider: 09/30/24 15:00 Source: patient Mode of arrival: ambulatory Limitations: no limitations History of Present Illness HPI Narrative: Elvira is a 54-year-old female patient presenting to the clinic today with complaints of bilateral ear fullness and dizziness. She reports her symptoms started last night while she was at work. States she took 600 mg of ibuprofen this morning for the discomfort. States that her left ear is worse than the right. [place] as though the room was spinning last night when she was lying down for bed. Feels unsteady on her feet today-feels as though she wants to walk sideways. Denies any visual changes, chest pain, shortness breath, or headache. No associated nausea or vomiting. She states she has nasal drainage/sinus congestion year round. History of RA. She denies any history of diabetes. No urinary symptoms Related Data Home Medications ?Medication ?Instructions ?Recorded ?Confirmed ?Last Taken ?Type leflunomide 20 mg tablet 20 mg PO DAILY 12/14/20 08/14/23 Unknown History azathioprine 50 mg tablet 50 mg PO DAILY 08/14/23 08/14/23 Unknown History certolizumab pegol 200 mg/mL 200 mg subcut ONCE 09/30/24 09/30/24 Unknown History subcutaneous syringe kit (Cimzia) Allergies Allergy/AdvReac Type Severity Reaction Status Date / Time codeine AdvReac Intermediate GI UPSET Verified 09/30/24 14:56 Review of Systems Review of Systems: Pertinent positives per HPI. Patient denies any fever, chills, rash, headache, visual changes, cough, shortness of breath, chest pain, palpitations, nausea, vomiting, diarrhea, constipation, abdominal pain, or any urinary issues. [facility] Past Medical History Medical History History of vaginal delivery x 3 History of colon polyps Rheumatoid arthritis Psoriatic arthritis Surgical History Surgical History History of decompression of ulnar nerve Bilateral 2005 History of carpal tunnel surgery bilateral 2004 [place] teeth removed 1998 History of tubal ligation 1990 History of laparoscopy 1196 1996 History of colonoscopy with polypectomy 2018 History of dilation and curettage Family History Family History Father Alcoholism Lung cancer Brain cancer Hypertension Cerebrovascular accident Mother Hypertension Sibling Alcoholism Grandparent Stomach cancer Skin cancer Malignant neoplasm of prostate Hypertension Social History Social History Smoking status: Former smoker Smoking end date: 06/13/23 Alcohol intake: never Substance use: never Substance use type: does not use Do You Feel Safe in your Home?: Yes Lack of Transportation: No Lack of Food: Never True Current Housing: I Have Housing Concerned About Future Housing: No Difficulty Paying Gas/Electric Bills: No Difficulty Paying for Meds: No Currently Unemployed: No Education: Associate Degree Difficulty w/ Childcare or Family Care: No Living arrangements: with family Spiritual care concerns: No Comments At the time of my signature, I reviewed and agree with the nursing past medical, surgical, social, and family history. There is no relevant family history pertinent to the patient complaint. Exam Narrative: General: Well-developed, well nourished, in no apparent distress Head: Normocephalic, atraumatic Eyes: Pupils equally round and reactive to light bilaterally, EOM intact, sclera and conjunctive clear, no discharge, lids normal, no nystagmus Ears: TMs intact and congested, ear canals clear, no drainage, grossly hearing normal. Nose: Nares patent, no discharge, no inflammation, no sinus tenderness. Mouth: Oropharynx without lesions or masses, good dentition, MMM. Tongue midline, even rise and fall of uvula Neck: Supple, trachea midline, no enlargement of anterior or posterior cervical nodes, no thyroid masses or goiter palpable. Cardio: Regular rate and rhythm, s1 and s2 normal, no murmur appreciated. Resp: Clear to auscultation bilaterally anteriorly and posteriorly, no rhonchi, rales, wheezing or rubs Musculoskeletal: No deformity, non-tender to palpation, grossly normal range of motion, muscle strength strong and equal, peripheral pulse strong, no edema, no cyanosis, normal gait and station Neuro: Alert and oriented x4 with normal speech, no focal deficits, cranial nerves I through XII intact, muscle strength 5 out of 5, sensation intact bilaterally, negative Romberg test Course Course Emergency Course: Portions of this record may have been created with voice recognition software. Level of Care: Express Care Visit Vital Signs Vital signs: Vital Signs Temperature 36.2 C L 09/30/24 14:56 Pulse Rate 72 09/30/24 14:56 Respiratory Rate 18 09/30/24 14:56 Blood Pressure 142/91 H 09/30/24 14:56 Pulse Oximetry 100 09/30/24 14:56 Oxygen Delivery Room Air 09/30/24 14:56 Temperature 36.2 C L 09/30/24 14:56 Pulse Rate 72 09/30/24 14:56 Respiratory Rate 18 09/30/24 14:56 Blood Pressure 142/91 H 09/30/24 14:56 Pulse Oximetry 100 09/30/24 14:56 Oxygen Delivery Room Air 09/30/24 14:56 Vital signs reviewed Medical Decision Making MDM Narrative Medical decision making narrative: At the time of visit patient is resting comfortably on the exam table. Patient appears to be nontoxic. Plan: Neuro exam is normal in the clinic today. Patient's blood pressure is elevated but she has not taken her blood pressure medications today. She denies any headache, visual changes, shortness of breath, or chest pain. No history of diabetes and denies any urinary symptoms. I suspect patient is likely suffering from vertigo. Prescription for meclizine was sent to the pharmacy. Supportive measures were discussed with the patient and they voiced understanding discharge instructions and agrees to treatment plan. Return precautions reviewed Differential Diagnosis Differential Diagnosis: Otitis media, otitis externa, eustachian tube dysfunction, vertigo, BPPV, TIA, CVA Vital Signs Vital Signs: Vital Signs Temperature 36.2 C L 09/30/24 14:56 Pulse Rate 72 09/30/24 14:56 Respiratory Rate 18 09/30/24 14:56 Blood Pressure 142/91 H 09/30/24 14:56 Pulse Oximetry 100 09/30/24 14:56 Oxygen Delivery Room Air 09/30/24 14:56 Temperature 36.2 C L 09/30/24 14:56 Pulse Rate 72 09/30/24 14:56 Respiratory Rate 18 09/30/24 14:56 Blood Pressure 142/91 H 09/30/24 14:56 Pulse Oximetry 100 09/30/24 14:56 Oxygen Delivery Room Air 09/30/24 14:56 Discharge Plan Discharge Clinical Impression: Vertigo Patient Disposition: Home, Self-Care Condition: Stable Instructions: Antibiotic Form, Vertigo (ED) Additional Instructions: Neuro exam was normal in the clinic today Take meclizine as prescribed for vertigo Increase fluids and stay well hydrated May use flonase and OTC antihistamine such as Zyrtec or Claritin for nasal congestion Continue current medications as prescribed You have an elevated blood pressure in the clinic today and I recommend follow- up with primary care physician to have this reevaluated within the next week if symptoms persist. [place] [employer] guidelines state that normal blood pressure is 120/80 or less. Anything over 120/80 is considered elevated and should be monito red. You may need to decrease you salt intake and eat a heart healthy diet to help lower you blood pressure, other treatments would include decreasing stress, weight loss, stop caffeine, and quit smoking. Your primary care provider can determine whether you need to start antihypertensive medications. Untreated high blood pressure can cause dizziness, headaches, visual changes, blindness, kidney failure, stroke, heart attack, and male impotence. Patient Language: Bahamian Prescriptions: New meclizine 25 mg tablet 25 mg PO TID PRN (Reason: dizziness or vertigo) 7 Days Qty: 21 0RF No Action Cimzia 200 mg/mL syringe kit 200 mg subcut ONCE leflunomide 20 mg tablet 20 mg PO DAILY azathioprine 50 mg tablet 50 mg PO DAILY amlodipine [Norvasc] 5 mg Tablet 10 mg PO QAM Qty: 60 0RF Follow-up/Referrals: Dallin,Hayley Jimenez BROACH OPERATOR [Primary Care Provider] - Stand Alone Forms: Work/School Release IP Time of Disposition: 15:06 Quality NIHSS Nursing Documentation ED NIHSS nursing documentation: reviewed/agree
[2024-09-30 14:56] VITALS: BP 142/91; PULSE 72; RESP 18; TEMP 36.2; O2SAT 100
--- OUTSIDE RECORDS SUMMARY | 2024-09-30 16:09 | XMS_ITS | Clinical Summary ---
Author Organization [facility] Address [address] [place] [address] Care Team Providers Care Loss Prevention Guard Name Role Phone Bolivar Rowland NP Primary Care Provider [phone] Allergies No known active allergies Medications hyoscyamine (LEVSIN) 0.125 mg tabletIndications: Urinary Incontinence Take 1 tablet (0.125 mg total) by mouth every 6 (six) hours as needed for cramping. 15 tablet 09/17/19 19 Active Additional Information Patient not taking.Reported on 10/18/2022 ondansetron ODT (ZOFRAN-ODT) 4 mg disintegrating tablet Dissolve 1-2 tablets oral every 8 hours as needed for nausea or vomiting. 15 tablet 09/17/19 19 Active polyethylene glycol (MIRALAX) 17 gram/dose powder Mix 1 scoop (17 g) in 8 oz of water and drink daily. 527 g 09/17/19 19 Active Additional Information Patient not taking.Reported on 05/20/2019 ketoconazole (NIZORAL) 2 % shampoo Apply topically once a week 02/26/20 18 Active multivitamin tablet Take 1 tablet by mouth daily Active folic acid (FOLVITE) 1 mg tablet Take 1,000 mcg by mouth daily 2 02/19/20 19 Active FIBER-CAPS, PSYLLIUM HUSK, ORAL Take by mouth daily Active omeprazole (PriLOSEC) 40 mg capsuleIndications :Epigastric abdominal pain TAKE 1 CAPSULE BY MOUTH EVERY DAY 30 capsule 3 07/29/19 20 Active azaTHIOprine (IMURAN) 50 mg tablet Take 150 mg by mouth daily 04/08/20 21 Active cholecalciferol (VITAMIN D-3) 25 mcg (1,000 unit) tablet Take 1 Units by mouth daily Active leflunomide (ARAVA) 20 mg tablet Take 20 mg by mouth daily 09/17/19 23 Active lisinopril-hydroCH LOROthiazide (ZESTORETIC) 10-12.5 mg per tablet Take 1 tablet by mouth daily 10/01/19 23 Active Active Problems Problem Noted Date Diagnosed Date Encounter for smoking cessation counseling 05/20 Intestinal metaplasia of gastric mucosa 05/20/20 19 Personal history of Helicobacter infection 02/25 Personal history of colonic polyps 02/25/2019 Dyspepsia 02/25/2019 Multiple benign melanocytic nevi of upper extremity, lower extremity, and trunk 03/28/2018 Tinea versicolor 03/28/2018 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 SK (seborrheic keratosis) 03/28/2018 Resolved Problems Problem Noted Date Diagnosed Date Resolved Date Melena 02/25/2019 05/20/2019 Immunizations Immunization Administration Dates Next Due TD Preservative Free 12/08/2012 Surgical History Surgery Date Site/Laterality Comments HYSTERECTOMY Medical History Medical History Date Comments Osteoarthritis GERD (gastroesophageal reflux disease) Duodenal ulcer Liver disease hepatitis as chi ld History of transfusion Ovarian cyst Family History Medical History Relation Name Comments Rheum arthritis Brother Lung cancer Father Cancer Maternal Grandfather Cancer Maternal Grandmother Stomach cancer Mother's Sister Cancer Paternal Grandfather Cancer Paternal Grandmother Relation Name Status Comments Brother Father Maternal Grandfather Maternal Grandmother Mother's Sister Paternal Grandfather Paternal Grandmother Social History Tobacco Use Types Packs/Day Years Used Date Smoking Tobacco: Former Cigarettes 0 Smokeless Tobacco: Never Tobacco Cessation:Counseling Given: Not Answered Alcohol Use Standard Drinks/Week Comments Not Currently 0 (1 standard drink = 0.6 oz pur e alcohol) Personal Safety Answer Date Recorded Have you ever been in or are you currently in a harmful physical or emotional relationship or is someone making you feel afraid or unsafe? 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 Respiratory Rate 19 09/02/2023 12:30 PM MARKET ANALYSIS DIRECTOR Oxygen Saturation 99% 09/02/2023 12:30 PM MARKET ANALYSIS DIRECTOR Inhaled Oxygen Concentration - - Weight 72.6 kg (160 lb) 09/02/2023 9:30 AM MARKET ANALYSIS DIRECTOR Height 152.4 cm (5') 09/02/2023 9:30 AM MARKET ANALYSIS DIRECTOR Body Mass Index 31.25 09/02/2023 9:30 AM MARKET ANALYSIS DIRECTOR Plan of Treatment Health Maintenance Due Date Last Done Comments Breast Cancer Screening-Mammogram 1970 Depression Screening 1969 Hepatitis C Screening 1969 Hepatitis B Screening 1987 Regular Well Visit/Exam 18-64 1987 Pneumococcal vaccine <65 (1 of 2 - PCV) 1988 Zoster Vaccine (1 of 2) 1988 DTaP/Tdap/Td Vaccine (1 - Tdap) 12/09/2012 3 Influenza Vaccine (#1) 2024 Colon Cancer Screening-Colonoscopy 04/14/20292018 Colon Cancer Screening-CT Colonography Discontinued Colon Cancer Screening-DNA Stool Discontinued 04/14/20 19 Colon Cancer Screening-FIT Discontinued 04/14/2019 Colon Cancer Screening-Sigmoidoscopy Discontinued 03/28 Procedures Procedure Name Priority Date/Time Associated Diagnosis Comments COLONOSCOPY 04/14/2019 8:54 AM CDT from Last 3 Months or Most Recently Relevant to Health Maintenance Results * COLONOSCOPY (04/14/2019 8:54 AM CDT) Anatomical Region Laterality Modality Other Narrative Procedure Note Emi Pinedo MD - 04/14/2019 8:54 AM CDT [facility] Patient Name: Elvira Yi Procedure Date: 04/14/2019 8:54 AM Date of : 1970 Admit Type: Outpatient Age: 49 Gender: Female Attending MD: Elvia Holliday Room: [facility] 5 Note Status: Finalized Procedure: Colonoscopy Indications: Screening for colorectal malignant neoplasm, This is the patient's first colonoscopy Referring MD: Juan J Arias M.D. Providers: Emi Pinedo M.D. Medicines: Monitored Anesthesia Care Complications: No immediate complications. Estimated Blood Loss: Estimated blood loss was minimal. Procedure: Pre-Anesthesia Assessment: - Prior to the procedure, a History and Physical was performed, and patient medications, allergies and sensitivities were reviewed. The patient's toleranceof previous anesthesia was reviewed. - The risks and benefits of the procedure and the sedation options and risks were discussed with the patient. All questions were answered and informed consent was obtained. - Patient identification and proposed procedure were verified prior to the procedure. - Immediately prior to administration ofmedications, the patient was re-assessed for adequacy to receive sedatives. The benefits, risks and alternatives of theprocedure and sedation were discussed and informed consent was obtained. All questions were answered. Please referto the signed informed consent document in the medical record. The scope was passed under direct vision.The [id number] endoscope was introduced throughthe anus and advanced to the cecum, identified by appendiceal orifice and ileocecal valve. The colonoscopy was performed without difficulty. The patient tolerated the procedure well. The quality of the bowel preparation was evaluated using the BBPS ([place] Bowel Preparation Scale) with scores of:Right Colon = 3, Transverse Colon = 3 and Left Colon = 3 (entire mucosa seen well with no residual staining, small fragments of stool or opaque liquid). Thetotal BBPS score equals 9. The bowel preparation used was Miralax and magnesium citrate. Bowel prep was administered using a split dose. The quality of the bowel preparation was good. Findings: The perianal and digital rectal examinations were normal. Non-bleeding internal hemorrhoids were found during retroflexion. The hemorrhoids were mild. Multiple small-mouthed diverticula were found in the sigmoid colon. A 5 mm polyp was found in the splenic flexure. The polyp was carpet-like. The polyp was removed with a cold snare. Resection and retrieval were complete. A 7 mm polyp was found in the ascending colon. The polyp was sessile. The polyp was removed with a 1.5 ml Methylene blue plus D5W injection-lift technique using a hot snare. Resection and retrievalwere complete. The exam was otherwise without abnormality. Impression: - Non-bleeding internal hemorrhoids. - Diverticulosis in the sigmoid colon. - One 5 mm polyp at the splenic flexure, removedwith a cold snare. Resected and retrieved. - One 7 mm polyp in the ascending colon, removedusing injection-lift and a hot snare. Resected andretrieved. - The examination was otherwise normal. Recommendation: - Await pathology results. - Repeat colonoscopy in 5 years for surveillance. - Return to GI office as previously scheduled. Electronically signed by Emi Pinedo MD Emi Pinedo M.D. 04/14/2019 9:37:47 AM . Number of Addenda: 0 Note Initiated On: 04/14/2019 8:54 AM Recognized by the [employer] for promoting quality in endoscopy Emi Pinedo MD ENDOSCOPY PROCEDUR ES Final Result from Last 3 Months or Most Recently Relevant to Health Maintenance Insurance [facility] [place] [id number] Advance Directives For more information, please contact: [phone] * Full Code (Latest Code Status on File) Date Activated Date Inactivated Comments 04/14/2019 8:23 AM 04/14/2019 2:43 PM Care Teams Loss Prevention Guard Relationship Specialty Start Date End Date Bolivar Rowland NP [address] [place] [address] PCP - General Family Medicine 12/12/23
--- OUTSIDE RECORDS SUMMARY | 2024-09-30 16:09 | XMS_ITS | Patient Health Summary ---
Author Organization [facility] Address [address] [place] [address] Care Team Providers Care Cigarette Vendor Name Role Phone Bolivar Rowland BIRDIE-PET STYLIST Primary Care Provider [phone] Note from [facility],non-owned Affiliates and Associated Physician Practices is amultiple site organization consisting of ambulatory clinics and hospital sitesin [place], [place], [place] and [place]. This disclosure is being madepursuant to the Care Everywhere program and may not contain all information available regarding this patient. Last updated 18.[facility] Allergies No known active allergies Medications * Be aware that medications may not be up to date on this document. Alwaysverify current medications with the patient. * Multiple Vitamin (MULTIVITAMIN+ PO) Take 2 tablets by mouth once daily * amLODIPine (Norvasc) 5 MG tablet(Started 08/15/2023) Take 2 (two) tablets by mouth every morning * leflunomide (Arava) 20 MG tablet(Started 09/17/2022) Take 1 (one) tablet by mouth once daily * predniSONE (Deltasone) 5 MG tablet(Started 11/07/2023) as needed * BIOTIN PO * FOLIC ACID PO * cyanocobalamin (Vitamin B-12) 1000 MCG tablet Take 1 (one) tablet by mouth once daily * Pumpkin Seed-Soy Germ (AZO BLADDER CONTROL/GO-LESS PO) Take 1 capsule by mouth 2 times daily as needed * certolizumab pegol (Cimzia) injection Inject subcutaneously every 28 days * nortriptyline (Pamelor) 50 MG capsule(Started 12/25/2023) Take 1 (one) capsule by mouth at bedtime 5 refills by 12/24/2024 * metoprolol succinate XL 24hr (Toprol XL) 25 MG tablet(Started 03/25/2024) Take 1 (one) tablet by mouth once daily 4 refills by 03/25/2025 Active Problems Problem Noted Date Diagnosed Date 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 09/20/2019 Intentional amphetamine overdose 09/19/2019 Tinea versicolor 03/28/2018 Multiple benign melanocytic nevi of upper extremity, lower extremity, and trunk 03/28/2018 SK (seborrheic keratosis) 03/28/2018 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 Social History Tobacco Use Types Packs/Day Years Used Date Smoking Tobacco: Former Cigarettes 1 38.7 0 09/20/1984 - 05/2023 Smokeless Tobacco: Former Tobacco Cessation:Counseling Given: Not Answered Comments:refused Alcohol Use Standard Drinks/Week Comments Not Currently 0 (1 standard drink = 0.6 oz pure alcohol) Have not drank in over a year Sex and Gender Information Value Date Recorded Sex Assigned at Female 03/24/2024 1:05 AM CDT Gender Identity Female 03/24/2024 1:05 AM CDT Sexual Orientation Straight 03/24/2024 1: 05 AM CDT Last Filed Vital Signs Vital Sign Reading Time Taken Comments Blood Pressure 143/93 03/24/2024 11:17 AM CDT Pulse 72 03/24/2024 11:17 AM CDT Temperature 36.4 C (97.6 F) 10/23/2021 11:29 AM CDT Respiratory Rate 16 12/25/2023 11:20 AM CDT Oxygen Saturation 92% 11/27/2023 9:32 AM CDT Inhaled Oxygen Concentration - - Weight 70.5 kg (155 lb 6.4 oz) 03/24/2024 11:17 AM CDT Height 152.4 cm (5') 03/24/2024 11:17 AM CDT Body Mass Index 30.35 03/24/2024 11:17 AM CDT Procedures * HOLTER MONITOR(Performed 01/08/2024) Performed for Atherosclerosis of aorta (HCC), Syncope, unspecified syncope type * EEG(Performed 12/03/2023) Performed for Chronic tension-type headache, intractable, Vasovagal syncope * LIPID PROFILE(Performed 11/27/2023) Performed for Atherosclerosis of aorta (HCC) * C-REACTIVE PROTEIN(Performed 11/27/2023) Performed for Vasovagal syncope * ERYTHROCYTE SEDIMENTATION RATE(Performed 11/27/2023) Performed for Vasovagal syncope * CT ABDOMEN PELVIS W CONTRAST(Performed 10/23/2021) Performed for Flank pain * EKG 12-LEAD(Performed 10/23/2021) Performed for Flank pain * URINALYSIS REFLEX MICROSCOPIC REFLEX CULTURE(Performed 10/23/2021) * XR CHEST 1VW(Performed 10/23/2021) Performed for Flank pain * TROPONIN I(Performed 10/23/2021) * CBC W AUTO DIFFERENTIAL(Performed 10/23/2021) * LIPASE BLOOD(Performed 10/23/2021) * COMPREHENSIVE METABOLIC PANEL(Performed 10/23/2021) * HIV-1 HIV-2 ANTIBODY + HIV P24 AG PANEL(Performed 10/23/2021) * XR PELVIS W BILAT HIP 2VW(Performed 02/15/2021) Performed for 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 The predominant rhythm is sinus rhythm. The average heart rate was 77 bpm, the maximum heart rate was 161 bpm, The minimum heart rate was 59 bpm There were no pauses greater than 2 seconds in duration. There were rare premature supraventricular ectopic beats noted, 0.27% burden There were rare premature ventricular ectopic beats noted, 0.01% burden. 1 disparate morphology. There were 28 events of SVT, longest for 24 beats. There was no evidence of A fib or flutter Impression: 1. Predominant rhythm is sinus rhythm 2. There were short runs of SVT (28 events, longest lasted for 24 beats) 3. There were rare PVCs 4. Patient recorded 4 events during the monitoring period, correlated with sinus rhythm Sonia Kinney MD 01/08/2024 2:53 PM Sonia Kinney MD CARDIAC SERVICES ORDERABLES * (ABNORMAL) LIPID PROFILE (LIPID PANEL) (11/27/2023 10:53 AM CDT) Cholesterol 224(H) 100 - 199 mg/dL [facility] INSURANCE BILL Triglycerides 88 0 - 149 mg/dL [facility] INSURANCE BILL HDL Cholesterol 62 >39 mg/dL [facility] INSURANCE BILL VLDL Calculated 15 5 - 40 mg/dL [facility] INSURANCE BILL LDL Calculated 147(H) 0 - 99 mg/dL [facility] INSURANCE BILL Comment NOT AVAILABLE [facility] INSURANCE BILL Comment: FASTING Result cannot be obtained for this observation. Blood BLOOD SPECIMEN / Unknown 11/27/2023 10:53 AM CDT 11/27/2023 Narrative Resulting Agency Comment Lab [facility] performed at: [facility] [address] [id number] Sonia Kinney MD LAB - CHEMISTRY O [place] Performing Organization Address [facility]/ZIP Co de Phone Number [facility] INSURANCE BILL [address] [place] [address] * C-REACTIVE PROTEIN (CRP) (11/27/2023 10:52 AM CDT) C-Reactive Protein 0.20 <=0.50 mg/dL [facility] INSURANCE BILL Comment: FASTING Blood BLOOD SPECIMEN / Unknown 11/27/2023 10:52 AM CDT 11/27/2023 Narrative Resulting Agency Comment Lab Testing performed at: [facility] [place] [address] [place] [id number] Holland Solorio MD LAB - CHEMISTRY GILBERTO WILLIS Performing Organization Address City/[facility]/ZIP Co de Phone Number [facility] INSURANCE BILL [address] [place] [address] * SED RATE AUTO (ESR) (11/27/2023 10:52 AM CDT) Erythrocyte Sedimentation Rate Westergren 7 0 - 30 MM/HR [facility] INSURANCE BILL Comment: FASTING Blood BLOOD SPECIMEN / Unknown 11/27/2023 10:52 AM CDT 11/27/2023 Narrative Resulting Agency Comment Lab Testing performed at: [facility] [address] [place] [id number] Holland Solorio MD LAB - HEMATOLOGY ORD ERABLES [facility] INSURANCE BILL [address] [place] [address] * CT ABDOMEN AND PELVIS WITH IV CONTRAST - Acute Abdomen (10/23/2021 1:40 PM CDT) Anatomical Region Laterality Modality Abdomen, Pelvis Computed Tomogra phy 10/23/2021 2:43 PM CDT Narrative 10/23/2021 2:48 PM CDT Examination: CT abdomen and pelvis with contrast. Indication for examination: Nausea and vomiting, bilateral flank and abdominal pain. CT examination of the abdomen and pelvis is performed with intravenous contrast with sagittal and coronal reconstructions. 80 mL Isovue 370 contrast were used. No prior abdominal imaging studies are available. CT abdomen: CT examination of the abdomen shows that the liver and spleen are normal in size. No focal parenchymal abnormality identified. Portal and hepatic vein are patent. Gallbladder normal in size. Bile ducts are not dilated. Pancreas is normal in appearance. Kidneys are symmetric in size. There is no obstruction, dilatation or perinephric fluid. There are nonobstructive stones within the left upper and left lower pole calyx. There are no abnormally enlarged retroperitoneal lymph nodes. Abdominal aorta normal in caliber. There is no mechanical bowel obstruction or perforation. Mesenteric arterial and venous system are patent. No ascites or loculated peritoneal fluid. CT PELVIS: CT examination of the pelvis reveals no soft tissue mass, adenopathy or fluid collection. No evidence of acute colitis or diverticulitis. No pericecal fluid or phlegmon. There are multiple calcifications in the pelvis which appear to represent phleboliths. No definite ureteral stone or ureteral dilatation. Bladder is normal in size. Bony structures are intact. CONCLUSION: No abdominal or pelvic mass, adenopathy or fluid collection. No bowel obstruction or perforation. Small nonobstructive stones left kidney. No urinary obstruction or calcified ureteral stone. No acute appearing abnormality identified. *Reading Radiologist: Alberto Bravo on 10/23/2021 at 2:48 PM Procedure Note Alberto Bravo MD - 10/23/2021 Examination: CT abdomen and pelvis with contrast. Indication for examination: Nausea and vomiting, bilateral flank and abdominal pain. CT examination of the abdomen and pelvis is performed with intravenous contrast with sagittal and coronal reconstructions. 80 mL Isovue 370 contrast were used. No prior abdominal imaging studies are available. CT abdomen: CT examination of the abdomen shows that the liver and spleen are normal in size. No focal parenchymal abnormality identified. Portal and hepatic vein are patent. Gallbladder normal in size. Bile ducts are not dilated. Pancreas is normal in appearance. Kidneys are symmetric in size. There is no obstruction, dilatation or perinephric fluid. There are nonobstructive stones within the left upper and left lower pole calyx. There are no abnormally enlarged retroperitoneal lymph nodes. Abdominal aorta normal in caliber. There is no mechanical bowel obstruction or perforation. Mesenteric arterial and venous system are patent. No ascites or loculated peritoneal fluid. CT PELVIS: CT examination of the pelvis reveals no soft tissue mass, adenopathy or fluid collection. No evidence of acute colitis or diverticulitis. No pericecal fluid or phlegmon. There are multiple calcifications in the pelvis which appear to represent phleboliths. No definite ureteral stone or ureteral dilatation. Bladder is normal in size. Bony structures are intact. CONCLUSION: No abdominal or pelvic mass, adenopathy or fluid collection. No bowel obstruction or perforation. Small nonobstructive stones left kidney. No urinary obstruction or calcified ureteral stone. No acute appearing abnormality identified. *Reading Radiologist: Alberto Bravo on 10/23/2021 at 2:48 PM Debbie Malin PA-C CT ORDERABLES * EKG 12-LEAD (10/23/2021 1:22 PM CDT) Only the most recent of2 resultswithin the time period is included. Ventricular Rate 72 BPM [facility] Atrial Rate 72 BPM [facility] P-R Interval 140 ms [facility] QRS Duration ms 86 ms [facility] Q-T Interval ms 412 ms [facility] QTC Calculation (Bezet) 451 ms [facility] Calculated P [place] 72 degrees [facility] Calculated R [place] -117 degrees [facility] Calculated T [place] 64 degrees [facility] Interpretation EKG Normal sinus rhythm Right superior axis deviation Cannot rule out Septal infarct , age undetermined Abnormal ECG No previous ECGs available Confirmed by MAXIMILIANO DALEY MD ([id number]) on 10/24/2021 6:53:49 AM [facility] 10/23/2021 1:22 PM CDT 10/24/2021 6:53 AM CDT Debbie Malin PA-C ECG ORDERABLES [facility] * URINALYSIS REFLEX MICROSCOPIC REFLEX CULTURE (10/23/2021 1:21 PM CDT) Color UA Yellow Straw, Yellow 10/23/2021 1:42 PM CDT [facility] Clarity UA Clear Clear 10/23/2021 1:42 PM CDT [facility] Glucose UA Negative Negative 10/23/2021 1:42 PM CDT [facility] Bilirubin UA Negative Negative 10/23/2021 1:42 PM CDT [facility] Ketone UA Negative Negative 10/23/2021 1:42 PM CDT [facility] Specific [place] UA 1.015 1.005 - 1.030 10/23/2021 1:42 PM CDT [facility] Blood UA Negative Negative 10/23/2021 1:42 PM CDT [facility] pH UA 6.5 5.0 - 8.0 pH 10/23/2021 1:42 PM CDT [facility] Protein UA Negative Negative 10/23/2021 1:42 PM CDT [facility] Urobilinogen UA Negative Negative mg/dL 10/23/2021 1:42 PM CDT [facility] Nitrite UA Negative Negative 10/23/2021 1:42 PM CDT [facility] Leukocyte UA Negative Negative 10/23/2021 1:42 PM CDT [facility] Urine Microscopy Urine microscopy not indicated 10/23/2021 1:42 PM CDT [facility] Reflex Status Culture not indicated 10/23/2021 1:42 PM CDT [facility] Urine URINE SPECIMEN OBTAINED BY CLEAN CATCH PROCEDURE / Unknown Collection / Unknown 10/23/2021 1:21 PM CDT 10/23/2021 1:38 PM CDT Debbie Malin PA-C LAB - URINALYSIS OR DERABLES [facility] [address] [place] [address] * XR CHEST PA OR AP (1VW ONLY, THIS IS NOT PORTABLE) (10/23/2021 12:39 PM CDT) Anatomical Region Laterality Modality Chest Radiographic Olivia ging 10/23/2021 12:5 0 PM CDT Impressions 10/23/2021 12:50 PM CDT No acute disease. *Reading Radiologist: Alberto Berry on 10/23/2021 at 12:50 PM Narrative 10/23/2021 12:50 PM CDT Portable Chest AP History: Unspecified abdominal pain. COMPARISON: None. FINDINGS: The lungs are clear. No pleural effusion or pneumothorax seen. Cardiac silhouette is within normal limits. Procedure Note Alberto Berry MD - 10/23/2021 Portable Chest AP History: Unspecified abdominal pain. COMPARISON: None. FINDINGS: The lungs are clear. No pleural effusion or pneumothorax seen. Cardiac silhouette is within normal limits. IMPRESSION No acute disease. *Reading Radiologist: Alberto Berry on 10/23/2021 at 12:50 PM Debbie Malin PA-C DIAGNOSTIC IMAGING ORDERABLES * TROPONIN I (10/23/2021 12:39 PM CDT) Troponin I <0.010 <0.038 ng/mL 10/23/2021 1:09 PM CDT [facility] Blood BLOOD SPECIMEN / Unknown Venipuncture / Unknown 10/23/2021 12:39 PM CDT 10/23/2021 12:39 PM CDT Debbie Malin PA-C LAB - CHEMISTRY ORD ERABLES [facility] [address] [place] [address] * (ABNORMAL) CBC W AUTO DIFFERENTIAL (10/23/2021 12:39 PM CDT) WBC 4.5 4.4 - 10.7 x10E9/L 10/23/2021 12:48 PM CDT [facility] WBC Corrected 10/23/2021 12:48 PM CDT [facility] RBC 3.31(L) 3.80 - 5.20 x10E12/L 10/23/2021 12:48 PM CDT [facility] Hemoglobin 13.8 12.0 - 15.6 gm/dL 10/23/2021 12:48 PM CDT [facility] Hematocrit 40.3 35.9 - 45.5 % 10/23/2021 12:48 PM CDT [facility] MCV 121.8(H) 80.7 - 98.3 fl 10/23/2021 12:48 PM CDT [facility] MCH 41.7(H) 26.7 - 34.0 pg 10/23/2021 12:48 PM CDT [facility] MCHC 34.2 30.8 - 35.9 gm/dL 10/23/2021 12:48 PM CDT [facility] Platelet Count 341 153 - 416 x10E9/L 10/23/2021 12:48 PM CDT [facility] RDW-CV 15.4(H) 12.1 - 14.9 % 10/23/2021 12:48 PM CDT [facility] MPV 8.9(L) 9.4 - 12.9 fl 10/23/2021 12:48 PM CDT [facility] Neutrophils % 54.5 44.0 - 73.0 % 10/23/2021 12:48 PM CDT [facility] Lymphocytes % 36.7 20.0 - 43.0 % 10/23/2021 12:48 PM CDT [facility] Monocytes % 7.1 5.0 - 13.0 % 10/23/2021 12:48 PM CDT [facility] Eosinophils % 0.9 0.0 - 6.0 % 10/23/2021 12:48 PM CDT [facility] Basophils % 0.4 0.0 - 2.0 % 10/23/2021 12:48 PM CDT [facility] Immature Granulocytes 0.4 0 - 1 % 10/23/2021 12:48 PM CDT [facility] Neutrophil Absolute 2.44 2.01 - 7.14 x10E9/L 10/23/2021 12:48 PM CDT [facility] Lymphocytes Absolute 1.65 1.07 - 3.94 x10E9/L 10/23/2021 12:48 PM CDT [facility] Monocytes Absolute 0.32 0.26 - 1.07 x10E9/L 10/23/2021 12:48 PM CDT [facility] Eosinophils Absolute 0.04 0 - 0.47 x10E9/L 10/23/2021 12:48 PM CDT [facility] Basophils Absolute 0.02 0 - 0.08 x10E9/L 10/23/2021 12:48 PM CDT [facility] Immature Granulocytes Absolute 0.02 0.00 - 0.06 x10E9/L 10/23/2021 12:48 PM CDT [facility] nRBC Auto 0 /100 WBC 10/23/2021 12:48 PM CDT [facility] Blood BLOOD SPECIMEN / Unknown Venipuncture / Unknown 10/23/2021 12:39 PM CDT 10/23/2021 12:38 PM CDT Debbie Malin PA-C LAB - HEMATOLOGY OR DERABLES [facility] [address] [place] [address] * HIV-1 HIV-2 ANTIBODY + HIV P24 AG PANEL (10/23/2021 12:38 PM CDT) [facility] HIV1/2 Ab + P24 Ag Non Reactive Non Reactive 10/23/2021 1:27 PM CDT [facility] Blood BLOOD SPECIMEN / Unknown Venipuncture / Unknown 10/23/2021 12:38 PM CDT 10/23/2021 12:38 PM CDT Narrative [facility] - 10/23/2021 1:27 PM CDT No Laboratory evidence of HIV infection. Diallo Cochran MD LAB - CHEMISTRY GILBERTO WILLIS [facility] Organization Address City/State/ZIP Co de Phone Number [facility] [address] [place] [address] * COMPREHENSIVE METABOLIC PANEL (10/23/2021 12:38 PM CDT) Glucose 87 70 - 105 mg/dL 10/23/2021 1:02 PM CDT [facility] Sodium 144 136 - 145 mmol/L 10/23/2021 1:02 PM CDT [facility] Potassium 3.9 3.5 - 5.1 mmol/L 10/23/2021 1:02 PM CDT [facility] Chloride 106 98 - 107 mmol/L 10/23/2021 1:02 PM CDT [facility] CO2 26 23 - 31 mmol/L 10/23/2021 1:02 PM CDT [facility] Calcium 10.3 8.4 - 10.4 mg/dL 10/23/2021 1:02 PM CDT [facility] Anion Gap 12 8 - 18 mmol/L 10/23/2021 1:02 PM CDT [facility] BUN 10 9.8 - 20.1 mg/dL 10/23/2021 1:02 PM CDT [facility] Creatinine 0.72 0.57 - 1.11 mg/dL 10/23/2021 1:02 PM CDT [facility] Alkaline Phosphatase 71 40 - 150 U/L 10/23/2021 1:02 PM CDT [facility] ALT 14 0 - 61 U/L 10/23/2021 1:02 PM CDT [facility] AST 18 5 - 34 U/L 10/23/2021 1:02 PM CDT [facility] Protein Total 8.3 6.4 - 8.3 gm/dL 10/23/2021 1:02 PM CDT [facility] Albumin 5.1 3.5 - 5.2 gm/dL 10/23/2021 1:02 PM CDT [facility] Bilirubin Total 0.8 0.2 - 1.2 mg/dL 10/23/2021 1:02 PM CDT [facility] eGFR by CKD-EPI >90 >=90 mL/min/1.7 3 m2 10/23/2021 1:02 PM CDT [facility] Blood BLOOD SPECIMEN / Unknown Venipuncture / Unknown 10/23/2021 12:38 PM CDT 10/23/2021 12:38 PM CDT Narrative [facility] - 10/23/2021 1:02 PM CDT eGFR result was calculated using the updated CKD-EPI Creatinine Equations (2020). Prior to go live 2021 the eGFR was calculated using the MDRD calculation. Please note Reference Range change. Debbie Malin PA-C LAB - CHEMISTRY ORD ERABLES Performing Organization Address City/[facility] Co de Phone Number [facility] [address] [place] [address] * LIPASE BLOOD (10/23/2021 12:38 PM CDT) Lipase 16 8 - 78 U/L 10/23/2021 1:02 PM CDT [facility] Blood BLOOD SPECIMEN / Unknown Venipuncture / Unknown 10/23/2021 12:38 PM CDT 10/23/2021 12:38 PM CDT Debbie Malin PA-C LAB - CHEMISTRY ORD ERABLES Performing Organization Address [facility] Co de Phone Number [facility] [address] [place] [address] * XR HIPS BILATERAL 2 VW W AP PELVIS (02/15/2021 3:25 PM CDT) Anatomical Region Laterality Modality Pelvis, Lower Extremity Radiogra phic Imaging 02/15/2021 3:36 PM CDT Narrative 02/15/2021 3:37 PM CDT Pelvis AP Left hip 2 views Right hip 2 views History: Bilateral hip pain Findings: No acute pelvic or proximal femur fracture. Hip joint spaces are preserved. No osseous lesion seen. *Reading Radiologist: Alberto Berry on 02/15/2021 at 3:37 PM Procedure Note Alberto Berry MD - 02/15/2021 Pelvis AP Left hip 2 views Right hip 2 views History: Bilateral hip pain Findings: No acute pelvic or proximal femur fracture. Hip joint spaces are preserved. No osseous lesion seen. *Reading Radiologist: Alberto Berry on 02/15/2021 at 3:37 PM Aureliano Almeida MD DIAGNOSTIC IMAGING O [facility] Care Teams Cigarette Vendor Relationship Specialty Start Date End Date Bolivar Rowland APRN-PET STYLIST [address] [place] [address] [place] [id number] PCP - General 11/13/23
--- OUTSIDE RECORDS SUMMARY | 2024-09-30 16:09 | XMS_ITS | Referral Summary ---
Author Organization [facility] Address [address] [place] [address] Care Team Providers Care Engineering And Scientific Programmer Name Role Phone Bolivar Rowland NP Primary Care Provider [phone] Allergies No known active allergies Medications hyoscyamine [...] Dates Next Due TD Preservative Free 12/08/2012 Social History Tobacco Use Types Packs/Day Years [...] on file Legal Sex Female 3:06 PM DIANETICIST Gender Identity Not on file Sexual Orientation Not on file Last Filed Vital Signs Vital Sign Reading Time Taken Comments Blood Pressure 98/86 09/02/2023 12:30 PM DIANETICIST Pulse 73 09/02/2023 12:30 PM DIANETICIST Temperature 36.1 C (97 F) 09/02/2023 9:30 AM DIANETICIST Respiratory Rate 19 09/02/2023 12:30 PM DIANETICIST Oxygen Saturation 99% 09/02/2023 12:30 PM DIANETICIST Inhaled Oxygen Concentration - - Weight 72.6 kg (160 lb) 09/02/2023 9:30 AM DIANETICIST Height 152.4 cm (5') 09/02/2023 9:30 AM DIANETICIST Body Mass Index 31.25 09/02/2023 9:30 AM DIANETICIST Plan of Treatment Not on file Procedures Procedure Name Priority Date/Time Associated Diagnosis Comments COLONOSCOPY 04/14/2019 8:54 AM CDT from Last 3 Months or Most Recently Relevant to Health Maintenance Results * COLONOSCOPY (04/14/2019 8:54 AM CDT) Anatomical Region Laterality Modality Other Narrative Procedure Note mEi Pinedo MD - 04/14/2019 8:54 AM CDT [facility] Patient Name: Elvira Yi Procedure Date: 04/14/2019 8:54 AM Date of : 1970 Admit Type: Outpatient Age: 49 Gender: Female Attending MD: Elvia Holliday Room: [facility] ENDOSCOPY ROOM 5 Note Status: Finalized [...] The scope was passed under direct vision.The [id number] endoscope was introduced throughthe anus and advanced to the cecum, identified by appendiceal orifice and ileocecal valve. The colonoscopy was performed without difficulty. The patient tolerated the procedure well. The quality of the bowel preparation was evaluated using the BBPS ([place] Bowel Preparation Scale) with scores of:Right Colon [...] On: 04/14/2019 8:54 AM Recognized by the [employer] [employer] for promoting quality in endoscopy Emi Pinedo MD ENDOSCOPY PROCEDUR ES Final Result from Last 3 Months or Most Recently Relevant to Health Maintenance Insurance [facility] CMR [facility] C[facility] [place] [id number] Advance Directives For more information, please contact: [phone] * Full Code (Latest Code Status on File) Date Activated Date Inactivated Comments 04/14/2019 8:23 AM 04/14/2019 2:43 PM Care Teams Engineering And Scientific Programmer Relationship Specialty Start Date End Date Bolivar Rowland NP [address] [place] [address] PCP - General Family Medicine 12/12/23
--- OUTSIDE RECORDS SUMMARY | 2024-09-30 16:09 | XMS_ITS | Referral Summary ---
Author Organization [facility] [employer] Address [address] [place] [address] Care Team Providers Care Structural Steel Worker Apprentice Name Role Phone Bolivar Rowland BIRDIE-KAIAWHINA KURA KAUPAPA MAORI Primary Care Provider [phone]- [phone] Source Comments [facility] [employer],non-owned Affiliates and Associated Physician Practices is amultiple site organization consisting of ambulatory clinics and hospital sitesin [place], [place], [place] and [place]. This disclosure is being madepursuant to the Care Everywhere program and may not contain all information available regarding this patient. Last updated 18.[facility] [employer] Allergies No known active allergies Medications * Be aware that medications may not be up to date on this document. Alwaysverify current medications with the patient. Medication Sig Dispensed Refills Start Date End Date Status Multiple Vitamin (MULTIVITAMIN+ PO) Take 2 tablets by mouth once daily Active amLODIPine (Norvasc) 5 MG tablet Take 2 (two) tablets by mouth every morning 08/15/2023 Active leflunomide (Arava) 20 MG tablet Take 1 (one) tablet by mouth once daily 09/17/2022 Active predniSONE (Deltasone) 5 MG tablet as needed 11/07/2023 Active BIOTIN PO Active FOLIC ACID PO Active cyanocobalamin (Vitamin B-12) 1000 MCG tablet Take 1 (one) tablet by mouth once daily Active Pumpkin Seed-Soy Germ (AZO BLADDER CONTROL/GO-LESS PO) Take 1 capsule by mouth 2 times daily as needed Active certolizumab pegol (Cimzia) injection Inject subcutaneously every 28 days Active nortriptyline (Pamelor) 50 MG capsuleIndication s:Chronic tension-type headache, intractable Take 1 (one) capsule by mouth at bedtime 30 capsule 5 12/25/2023 Active metoprolol succinate XL 24hr (Toprol XL) 25 MG tabletIndications :HTN (hypertension), benign Take 1 (one) tablet by mouth once daily 90 tablet 4 03/25/2024 Active Active Problems Problem Noted Date Diagnosed [...] Mass Index 30.35 03/24/2024 11:17 AM CDT Functional Status Functional Status Response Date of Assess ment Is person deaf or have serious hearing difficult y? No 09/22/2019 Is person blind or have serious difficulty seein g? No 09/22/2019 Does person have serious dif ficulty walking/climbing stairs? No 09/22/2019 Does person have difficulty dressing/bathing? No 09/22/2019 Does person have difficulty doing errands alone? No 09/22/2019 Cognitive Status Response Date of Assessm ent Does person have difficulty concentrating/remembering/making decisions? No 09/22/2019 Plan of Treatment Not on file Procedures Procedure Name Priority Date/Time Associated Diagnosis Comments LIPID PROFILE Routine 11/27/2023 10:53 AM CDT Atherosclerosis of aorta (HCC) COMPREHENSIVE METABOLIC PANEL STAT 10/23/2021 12:38 PM CDT HIV-1 HIV-2 ANTIBODY + HIV P24 AG PANEL STAT 10/23/2021 12:38 PM CDT from Last 3 Months or Most Recently Relevant to Health Maintenance Results * (ABNORMAL) LIPID PROFILE (LIPID PANEL) (11/27/2023 10:53 AM CDT) Pathologist [facility] Cholesterol 224(H) 100 - 199 mg/dL [facility] [...] Resulting Agency Comment Lab Testing performed at: [facility] [address] [id number] Sonia Kinney MD LAB - CHEMISTRY O RDERATRACY [facility] INSURANCE BILL [address] [place] [address] * HIV-1 HIV-2 ANTIBODY + HIV P24 AG PANEL (10/23/2021 12:38 PM CDT) Pathologist [facility] HIV1/2 Ab + P24 Ag Non Reactive Non Reactive 10/23/2021 1:27 PM CDT [facility] Blood BLOOD SPECIMEN / Unknown Venipuncture / Unknown 10/23/2021 12:38 PM CDT 10/23/2021 12:38 PM CDT Narrative [facility] - 10/23/2021 1:27 PM CDT No Laboratory evidence of HIV infection. Diallo Cochran MD LAB - CHEMISTRY [facility] [address] [place] [address] * COMPREHENSIVE METABOLIC PANEL (10/23/2021 12:38 PM CDT) Glucose 87 70 - 105 mg/dL 10/23/2021 1:02 PM CDT [facility] Sodium 144 136 - 145 mmol/L 10/23/2021 1:02 PM CDT [facility] Potassium 3.9 3.5 - 5.1 mmol/L 10/23/2021 1:02 PM CDT [facility] Chloride 106 98 - 107 mmol/L 10/23/2021 1:02 PM CDT [facility] CO2 26 23 - 31 mmol/L 10/23/2021 1:02 PM CDT [facility] Calcium 10.3 8.4 - 10.4 mg/dL 10/23/2021 1:02 PM CDT [facility] Anion Gap 12 8 - 18 mmol/L 10/23/2021 1:02 PM CDT [facility] BUN 10 9.8 - 20.1 mg/dL 10/23/2021 1:02 PM CDT [facility] Creatinine 0.72 0.57 - 1.11 mg/dL 10/23/2021 1:02 PM CDT [facility] Alkaline Phosphatase 71 40 - 150 U/L 10/23/2021 1:02 PM CDT [facility] ALT 14 0 - 61 U/L 10/23/2021 1:02 PM CDT [facility] AST 18 5 - 34 U/L 10/23/2021 1:02 PM CDT [facility] Protein Total 8.3 6.4 - 8.3 gm/dL 10/23/2021 1:02 PM CDT [facility] Albumin 5.1 3.5 - 5.2 gm/dL 10/23/2021 1:02 PM CDT [facility] Bilirubin Total 0.8 0.2 - 1.2 mg/dL 10/23/2021 1:02 PM CDT [facility] eGFR by CKD-EPI >90 >=90 mL/min/1.7 3 m2 10/23/2021 1:02 PM CDT [facility] Blood BLOOD SPECIMEN / Unknown Venipuncture / Unknown 10/23/2021 12:38 PM CDT 10/23/2021 12:38 PM CDT Narrative [facility] - 10/23/2021 1:02 PM CDT eGFR result was calculated using the updated CKD-EPI Creatinine Equations (2020). Prior to go live 2021 the eGFR was calculated using the MDRD calculation. Please note Reference Range change. Debbie Malin PA-C LAB - CHEMISTRY ORD ERABLES [facility] [address] [place] [address] from Last 3 Months or Most Recently Relevant to Health Maintenance Advance Directives * Full Code (Latest Code Status on File) Date Activated Date Inactivated Comments 09/20/2019 11:45 PM 09/22/2019 1:39 PM * Full Code Date Activated Date Inactivated Comments 09/20/2019 9:41 PM 09/20/2019 11:45 PM Care Teams Structural Steel Worker Apprentice Relationship Specialty Start Date End Date Bolivar Rowland APRN-ESTRELLA [address] [place] [phone] PCP - General 11/13/23
--- OUTSIDE RECORDS SUMMARY | 2024-09-30 16:09 | XMS_ITS | Clinical Summary ---
Author Organization [facility] Address [address] [place] [address] Care Team Providers Care Stenciling Machine Tender Name Role Phone Bolivar Rowland BIRDIE-FILTER TENDER JELLY Primary Care Provider [phone]- [phone] Source Comments [facility],non-owned Affiliates and Associated Physician Practices is amultiple site organization consisting of ambulatory clinics and hospital sitesin [place], [place], [place] and [place]. This disclosure is being madepursuant to the Care Everywhere program and may not contain all information available regarding this patient. Last updated 18.[facility] Allergies No known active allergies Medications * [...] Mass Index 30.35 03/24/2024 11:17 AM CDT Plan of Treatment Health Maintenance Due Date Last Done Comments COLOGUARD (AGES 45-75) - COL ON CA SCREENING [address] COLONOGRAPHY - COLON CA SCREENING 1969 FIT - COLON CA SCREENING 1969 FLEX SIG - COLON CA SCREENING 1969 MAMMOGRAM 1969 PAP SMEAR 1969 HEPATITIS C SCREENING 03/28/1987 DTAP/TDAP/TD VACCINES (1 - Tdap) 1988 HEPATITIS B VACCINE (1 of 3 - 19+ 3-dose series) 1988 LUNG CANCER SCREENING 2019 PNEUMOCOCCAL VACCINE 50+ (1 of 1 - PCV) 2019 ZOSTER VACCINE (1 of 2) 2019 COVID-19 VACCINE (1 - 2023-2 5 season) 2024 INFLUENZA VACCINE (#1) 2024 DEPRESSION SCREENING 07/28/2024 SCREENING FOR DIABETES 10/23/2024 10/23/2021 LIPID TESTING 11/26/2028 11/27/2023 COLONOSCOPY - COLON CA SCREENING 04/14/2029 04/14/20 19 Colorectal Cancer Screening 04/14/2029 HIV SCREENING Completed 10/23/2021 HIB VACCINE Aged Out No longer eligi ble based on patient's age to complete this topic HPV VACCINE Aged Out No longer eligi ble based on patient's age to complete this topic MENINGOCOCCAL (Group B) VACCINE Aged Out No longer eligible based on patient's age to complete this topic MENINGOCOCCAL VACCINE Aged Out No horace gaurav eligible based on patient's age to complete this topic PNEUMOCOCCAL VACCINE Aged Out No long er eligible based on patient's age to complete this topic Procedures Procedure Name Priority Date/Time Associated Diagnosis [...] Resulting Agency Comment [facility]: [facility] [address] [id number] Sonia Kinney MD LAB - CHEMISTRY O GENTRY [facility] INSURANCE BILL [address] [place] [address] * HIV-1 HIV-2 ANTIBODY + HIV P24 AG PANEL (10/23/2021 12:38 PM CDT) HIV1/2 Ab + P24 Ag Non Reactive Non Reactive 10/23/2021 1:27 PM CDT [facility] Blood BLOOD SPECIMEN / Unknown Venipuncture / Unknown 10/23/2021 12:38 PM CDT 10/23/2021 12:38 PM CDT Narrative [facility] - 10/23/2021 1:27 PM CDT No Laboratory evidence of HIV infection. Diallo Cochran MD LAB - CHEMISTRY [facility] [address] [place] [address] * COMPREHENSIVE METABOLIC PANEL (10/23/2021 12:38 PM CDT) Glucose 87 70 - 105 mg/dL 10/23/2021 1:02 PM CDT [facility] Sodium 144 136 - 145 mmol/L 10/23/2021 1:02 PM CDT [facility] Potassium 3.9 3.5 - 5.1 mmol/L 10/23/2021 1:02 PM CDT [facility] Chloride 106 98 - 107 mmol/L 10/23/2021 1:02 PM CDT [facility] CO2 26 23 - 31 mmol/L 10/23/2021 1:02 PM CDT [facility] Calcium 10.3 8.4 - 10.4 mg/dL 10/23/2021 1:02 PM CDT [facility] Anion Gap 12 8 - 18 mmol/L 10/23/2021 1:02 PM CDT [facility] BUN 10 9.8 - 20.1 mg/dL 10/23/2021 1:02 PM CDT [facility] Creatinine 0.72 0.57 - 1.11 mg/dL 10/23/2021 1:02 PM CDT [facility] Alkaline Phosphatase 71 40 - 150 U/L 10/23/2021 1:02 PM CDT [facility] ALT 14 0 - 61 U/L 10/23/2021 1:02 PM CDT [facility] AST 18 5 - 34 U/L 10/23/2021 1:02 PM CDT [facility] Protein Total 8.3 6.4 - 8.3 gm/dL 10/23/2021 1:02 PM CDT [facility] Albumin 5.1 3.5 - 5.2 gm/dL 10/23/2021 1:02 PM CDT [facility] Bilirubin Total 0.8 0.2 - 1.2 mg/dL 10/23/2021 1:02 PM CDT [facility] eGFR by CKD-EPI >90 >=90 mL/min/1.7 3 m2 10/23/2021 1:02 PM CDT [facility] Blood BLOOD SPECIMEN / Unknown Venipuncture / Unknown 10/23/2021 12:38 PM CDT 10/23/2021 12:38 PM CDT Narrative [facility] - 10/23/2021 1:02 PM CDT eGFR result was calculated using the updated CKD-EPI Creatinine Equations (2020). Prior to go live 2021 the eGFR was calculated using the MDRD calculation. Please note Reference Range change. Debbie Malin PA-C LAB - CHEMISTRY ORD ERABLES [facility] [address] [place] [address] from Last 3 Months or Most Recently Relevant to Health Maintenance Advance Directives * Full Code (Latest Code Status on File) Date Activated Date Inactivated Comments 09/20/2019 11:45 PM 09/22/2019 1:39 PM * Full Code Date Activated Date Inactivated Comments 09/20/2019 9:41 PM 09/20/2019 11:45 PM Care Teams Stenciling Machine Tender Relationship Specialty Start Date End Date Bolivar Rowland APRN-ESTRELLA [address] [place] [phone] PCP - General 11/13/23
--- OUTSIDE RECORDS SUMMARY | 2024-09-30 16:09 | XMS_ITS | Data Portability ---
Author Organization [place] [facility] [place], Main Office Address [address] [place] [address] Care Team Providers Care Child Caregiver Private Home Name Role Phone RITA ROWLAND Primary Care Provider Assessment Encounter Date Assessment Date Assessment LastModified by Organization Details LastModified Time 01/26/2024 01/26/2024 This note is dictated and transcribed by [employer]. Web Publisher variances may occur. Despite proofreading, typographical errors may occur. Occasional wrong-word or 'lunjf-u-nuoa' substitutions may have occurred due to the inherent limitations of voice recording. Read the chart carefully and recognize, using context, where substitutions have occurred. Not available 01/26/2024 17:06:33 05/24/2024 05/24/2024 This note is dictated and transcribed by [employer]. Web Publisher variances may occur. Despite proofreading, typographical errors may occur. Occasional wrong-word or 'jeiav-k-bujy' substitutions may have occurred due to the inherent limitations of voice recording. Read the chart carefully and recognize, using context, where substitutions have occurred. Not available 05/24/2024 14:35:13 Plan of Treatment Reminders Order Date Submit Date Provider Last Modified By Organization Details Last Modified Time Details Appointments None recorded. Lab CBC w/ auto diff 2023 024 [email or web address] [facility] (Lab), [address] [place], [address], 10:04:30 lipid panel, serum 2023 024 [email or web address] [address] [facility] (Lab), [address] [place], [address], 4 10:04:30 CMP, serum or plasma 2023 024 replaced by [facility] [address] [place] [address] (Lab), [address] [place], [address], 4 10:04:30 vitamin D, 25-hydroxy, total, serum 2023 024 replaced by [facility] [address] [place] [address] (Lab), [address] [place], [address], 4 10:04:29 vitamin B12 + folate, serum or blood 2023 024 replaced by [facility] [address] [place] [address] (Lab), [address] [place], [address], 4 10:04:30 glycohemogl obin, total, blood [address] (Lab), [address] [place], [address], 4 10:04:30 TSH, serum or plasma 2023 024 replaced by [facility] [address] [place] [address] (Lab), [address] [place], [address], 4 10:04:30 hepatic function panel, serum 2023 024 replaced by [facility] [address] [place] [address] (Lab), [address] [place], [address], 4 10:04:31 hepatitis C virus Ab, serum [address] (Lab), [address] [place], [address], 4 10:04:29 urinalysis, dipstick 2023 024 [facility] [address], [place], [address], 4 16:47:50 urinalysis complete, reflex culture 2023 0[email or web address] [facility] ([facility]), [address], [place], [address], 4 16:45:28 Referral None recorded. Procedures None recorded. Surgeries None recorded. Imaging MAMMO, screening, digital, bilateral - *Please call pt to schedule* 2023 [email or web address] [place] [address], [address], [place], [address], 4 09:20:23 XR, foot, 3 or more view [email or web address] [facility] [place], [address], [place], [address], 4 17:09:37 XR, foot, 3 or more view 2023 [email or web address] [place] [address] [facility] [place], [address], [place], [address], 4 17:09:37 Medication Orders Wegovy 0.25 mg/0.5 mL subcutaneou s pen injector 2023 024 [id number], [address] [place], [place], [id number], 4 12:04:03 Patient TargetsNo targets recorded. Patient Instructions Encounter Date Encounter Id Patient Instructions Last Modified By Organization Details Last Modified Time 01/26/2024 [id number] plantar fasciitis: exercises Not available 01/26/2024 17:09:37 plantar fasciiti s education Not available 01/26/2024 17:09:37 Reason for Referral None Reported. Results Created Date Observation Date Name Description Value Unit Range Abnormal Flag Note LastModifiedBy Organization Detail LastModifiedTime 11/13/19 24 11/13/2023 urina lysis , dipst ick Leukocytes (reference range: negative pippa/ l) Large Not Available [address], [place], [address], 11/13/2023 16:23:50 11/13/19 24 11/13/2023 urina lysis , dipst ick Nitrite (reference rage: negative mg/dl) positi ve Not Available [address], [place], [address], 11/13/2023 16:23:50 11/13/19 24 11/13/2023 urina lysis , dipst ick Urobilinogen (reference range: 0.2-1 mg/dl) 0.2 Not Available [address], [place], [address], 11/13/2023 16:23:50 11/13/19 24 11/13/2023 urina lysis , dipst ick Protein (reference range: negative mg/dl) Modera te Not Available [address], [place], [address], 11/13/2023 16:23:50 11/13/19 24 11/13/2023 urina lysis , dipst ick pH (reference range: 5-7) 6.0 Not Available [address], [place], [address], 11/13/2023 16:23:50 11/13/19 24 11/13/2023 urina lysis , dipst ick Blood (reference range: negative Jaden/ l) Small Not Available [address], [place], [address], 11/13/2023 16:23:50 11/13/19 24 11/13/2023 urina lysis , dipst ick Specific [place] (reference range: 1.005-1.030) 1.025 Not Available [address], [place], [address], 11/13/2023 16:23:50 11/13/19 24 11/13/2023 urina lysis , dipst ick Ketone (reference range: negative mg/dl) Negati ve Not Available [address], [place], [address], 11/13/2023 16:23:50 11/13/19 24 11/13/2023 urina lysis , dipst ick Bilirubin (reference range: negative mg/dl) Negati ve Not Available [address], [place], [address], 11/13/2023 16:23:50 11/13/19 24 11/13/2023 urina lysis , dipst ick Glucose (reference range: negative mg/dl) Negati ve Not Available [address], [place], [address], 11/13/2023 16:23:50 11/13/19 24 11/13/2023 urina lysis , dipst ick Appearance Cloudy Not Available [address], [place], [address], 11/13/2023 16:23:50 11/13/19 24 11/13/2023 urina lysis , dipst ick Color Yellow Not Available [facility] [address], [place], [address], 11/13/2023 16:23:50 10/22/19 24 10/21/2023 US, neck, soft tissu e No observ ation record ed. [email or web address] [facility] [address], [place], [address], 10/29/2023 09:31:10 11/04/19 24 11/04/2023 CT, neck, soft tissu e, w/ contr ast No observ ation record ed. [email or web address] [facility] [address], [place], [address], 12/18/2023 11:36:28 01/26/20 24 XR, foot, 3 or more view No observ ation record ed. [facility] [place] [address] [facility] [address], [place], [address], 01/26/2024 17:08:36 01/26/20 24 XR, foot, 3 or more view No observ ation record ed. [facility] [place] [address] [facility] [address], [place], [address], 01/26/2024 17:08:27 Result Notes None recorded. Problems Name Problem SNOMED Code Status Onset Date Resolution Date Notes Provider Name and Address Organization Details Recorded Time Osteoarthr itis 443557893 Active 2016 Not Available [employer] 3 18:24:20 Migraine 68859385 Active 2022 TYSON Fuentes [address], [place], [address] , [place] - [facility] [employer] [facility] 3 10:45:03 Essential hypertensi on 45526392 Active 2022 TYSON Fuentes [address], [address], [place], [address] , [place] [facility] 3 10:55:38 Otalgia of left ear 2899286672 Active 2022 NESTOR Fuentes-C [address], [address], [place], [address] , [place] [facility] 3 11:14:37 Left temporoman dibular joint disorder 2824999269461 9100 Active 2022 TYSON Fuentes [address], [address], [place], [address] , [place] [facility] 3 11:24:31 Blood in urine 02258774 Active 2022 Shyla Gonzales LPN null, [place] [facility] 3 11:37:01 Acute urinary tract infection 125856841 Active 2022 JASPER Wood [address], [address], [place], [address] , [place] [facility] 3 08:44:13 Candidiasi s of vagina 75562062 Active 2022 JASPER Wood [address], [address], [place], [address] , [place] [facility] 3 09:21:52 Standard chest X-ray abnormal 715683887 Active 2022 Mary Ellen Costello MD [address], [address], [place], [address] , [place] [facility] 3 16:35:13 Nodule of lung 810451424 Active 2022 Mary Ellen Costello MD [address], [address], [place], [address] , [place] [facility] 3 17:30:13 Computed tomography result abnormal 616081929 Active 2023 Mary Ellen Costello MD [address], [address], [place], [address] , [facility] 4 12:42:03 Syncope 749378470 Active 2023 TYSON Fuentes [address], [place] [address], [place], [address] , [facility] 4 15:35:03 Mass of neck 701008846 Active 2023 TYSON Fuentes [address], [place] [address], [place], [address] , [facility] 4 15:48:09 Multinodul ar goiter 850797239 Active 2023 Mary Ellen Costello MD [address], [place] [address], [place], [address] , [facility] 4 09:34:10 Dysphagia 26838339 Active 2023 Mary Ellen Costello MD [address], [place] [address], [place], [address] , [facility] 4 09:35:46 Cervical lymphadeno mark 162038464 Active 2023 Mary Ellen Costello MD [address], [place] [address], [place], [address] , [facility] 4 09:36:09 Pain in throat 510144109 Active 2023 Mary Ellen Costello MD [address] [place] [address], [place], [address] , [facility] 4 09:40:07 Dysuria 02210930 Active 2023 TYSON Fuentes [address], [place] [address], [place], [address] , [facility] 4 16:23:37 Arthritis 6361895 Active 2023 Angelina quiñonez, [facility] 4 17:02:22 Headache 09782200 Active 2023 Angelina quiñonez, [facility] 4 17:02:33 Heartburn 46312074 Active 2023 Angelina quiñonez, [facility] 4 17:04:08 Pain in both feet 3788040928680 9102 Active 2023 Lang Chapman DPM [address], [address], [place], [address] , [facility] 4 17:06:37 Bilateral plantar fasciitis 4796398771722 9108 Active 2023 Lang Chapman DPM [address], [address], [place], [address] , [facility] 4 17:06:43 Calcaneal spur 32504370 Active 2023 Lang Chapman DPM [address], [place], [address] , [facility] 4 17:09:04 Calcaneal spur 92145632 Active 2023 Lang Chapman DPM [address], [place], [address] , [facility] 4 17:09:08 Notes:HERNIATED DISC Problem Notes None recorded. Procedures Surgical History Date Name Laterality Status Provider Name and Address Organization Details Recorded Time 05/24/20 24 Plantar Fascia Injection Right Foot completed Lang Chapman DPM [address], [place], [address], [facility] 05/24/2024 14:35:04 01/26/20 24 Plantar Fascia Injection Left Foot completed Lang Chapman DPM [address], [place], [address], [facility] [employer] [facility] 01/26/2024 17:12:59 01/26/20 24 Plantar Fascia Injection Right Foot completed Lang Chapman DPM [address], [place], [address], [facility] [employer] [facility] 01/26/2024 17:12:57 Rotator cuff surgery completed TREMAINE Guerrero [facility] [employer] [facility] 03/13/2023 10:26:32 Carpal tunnel surgery completed TREMAINE Guerrero [facility] 03/13/2023 10:26:40 laparoscopy completed TREMAINE Guerrero [facility] 03/13/2023 10:26:51 partial hysterectomy completed TREMAINE Guerrero [facility] [employer] [facility] 03/13/2023 10:27:00 Tubal Ligation completed Anushka Recinos RN [facility] [employer] [facility] 03/13/2023 10:27:09 Imaging Results Imaging Date Name Status LastModified by Organiz ation Details LastModified Time 10/21/2023 US, neck, soft tissue completed [email or web address] [facility] [address], [place], [address], 10/29/2023 09:31:10 11/04/2023 CT, neck, soft tissue, w/ contrast completed [email or web address] [facility] [address], [place], [address], 12/18/2023 11:36:28 01/26/2024 XR, foot, 3 or more view completed david [facility] [place] [address] [facility] [address], [place], [address], 01/26/2024 17:08:36 01/26/2024 XR, foot, 3 or more view completed david [facility] [place] [address] [facility] [address], [place], [address], 01/26/2024 17:08:27 Procedure Notes None recorded. Medical Equipment None Reported. Allergies No known drug allergies Medications Name Sig Start Date Stop Date Status Note LastModified by Organization Details LastModified Time Prescriptio n - Prior Authorizati on Request active Not Available Not Available N ot Available losartan 50 mg tablet TAKE 1 TABLET BY MOUTH DAILY 01/25 completed Not Available Not Available Not Available celecoxib 200 mg capsule 06/26 completed Not Available Not Available Not Available cyclobenzap rine 10 mg tablet TAKE 1 TABLET BY MOUTH THREE TIMES DAILY 06/26 completed Not Available Not Available Not Available fluconazole 100 mg tablet 05/15 completed Not Available Not Available Not Available fluconazole 150 mg tablet TAKE 1 TABLET BY MOUTH ONCE. TAKE SECOND TABLET 72 HOURS LATER IF NEEDED 01/25 completed Not Available Not Available Not Available cephalexin 250 mg capsule 01/25 completed Not Available Not Available Not Available ondansetron HCl 4 mg tablet TAKE 1 TABLET BY MOUTH TWICE DAILY NEEDED FOR NAUSEA 06/26 completed Not Available Not Available Not Available prednisone 20 mg tablet 05/15 completed Not Available Not Available Not Available prednisone 5 mg tablet TAKE 1 TO 2 TABLETS BY MOUTH DAILY active Not Available Not Available No t Available sumatriptan 50 mg tablet TAKE 1 TO 2 TABLETS BY MOUTH DAILY NEEDED 01/25 completed Not Available Not Available Not Available azathioprin e 50 mg tablet TAKE 3 TABLETS BY MOUTH ONCE DAILY active Not Available Not Available No t Available amlodipine 5 mg tablet TAKE 1 TABLET BY MOUTH EVERY DAY active Not Available Not Available No t Available sulfamethox azole 800 mg-trimetho prim 160 mg tablet TAKE 1 TABLET BY MOUTH TWICE DAILY FOR 5 DAYS 06/26 completed Not Available Not Available Not Available omeprazole 40 mg capsule,del ayed release TAKE 1 CAPSULE BY MOUTH EVERY DAY 01/25 completed Not Available Not Available Not Available leflunomide 20 mg tablet TAKE 1 TABLET BY MOUTH DAILY active Not Available Not Available No t Available tramadol 50 mg tablet 06/26 completed Not Available Not Available Not Available butalbital- acetaminoph en-caffeine 50 mg-325 mg-40 mg tablet TAKE 1 TABLET BY MOUTH EVERY 4 HOURS NEEDED FOR HEADACHE OR MIGRAINE 01/25 completed Not Available Not Available Not Available amoxicillin 875 mg tablet TAKE 1 TABLET BY MOUTH EVERY 12 HOURS FOR 7 DAYS 01/25 completed Not Available Not Available Not Available baclofen 10 mg tablet 06/26 completed Not Available Not Available Not Available doxycycline monohydrate 100 mg capsule TAKE 1 CAPSULE BY MOUTH TWICE DAILY 06/26 completed Not Available Not Available Not Available diclofenac sodium 75 mg tablet,augustine yed release 06/26 completed Not Available Not Available Not Available hydroxyzine HCl 25 mg tablet 01/25 completed Not Available Not Available Not Available gabapentin 100 mg capsule 05/15 completed Not Available Not Available Not Available metoprolol succinate ER 25 mg tablet,exte nded release 24 hr TAKE 1 TABLET BY MOUTH DAILY active Not Available Not Available No t Available lisinopril 10 mg-hydrochl orothiazide 12.5 mg tablet TAKE 1 TABLET BY MOUTH DAILY 06/26 completed Not Available Not Available Not Available methylpredn isolone 4 mg tablets in a dose pack FOLLOW PACKAGE DIRECTION S 06/26 completed Not Available Not Available Not Available nortriptyli ne 50 mg capsule TAKE 1 CAPSULE BY MOUTH AT BEDTIME active Not Available Not Available No t Available amoxicillin 875 mg-potassiu m clavulanate 125 mg tablet TAKE 1 TABLET BY MOUTH EVERY 12 HOURS 06/26 completed Not Available Not Available Not Available eletriptan 40 mg tablet TAKE 1 TABLET BY MOUTH DAILY NEEDED. MAY REPEAT 1 TIME FOR MIGRAINE. NO MORE THAN 2 DOSES MAY BE TAKEN IN 24 HOURS. 01/25 completed Not Available Not Available Not Available nitrofurant oin monohydrate /macrocryst als 100 mg capsule TAKE 1 CAPSULE BY MOUTH EVERY 12 HOURS FOR 5 DAYS 01/25 completed Not Available Not Available Not Available duloxetine 30 mg capsule,del ayed release 05/15 completed Not Available Not Available Not Available duloxetine 60 mg capsule,del ayed release 05/15 completed Not Available Not Available Not Available Cimzia active Not Available Not Availa ble Not Available BinaxNOW COVID-19 Ag Self Test kit TEST DIRECTED TODAY 01/25 completed Not Available Not Available Not Available Wegovy 2.4 mg/0.75 mL subcutaneou s pen injector ADMINISTE R 2.4 MG UNDER THE SKIN EVERY WEEK active Not Available Not Available No t Available Wegovy 1.7 mg/0.75 mL subcutaneou s pen injector INJECT 1.7MG SUBCUTANE OUS EVERY WEEK active Not Available Not Available No t Available Wegovy 1 mg/0.5 mL subcutaneou s pen injector ADMINISTE R 1 MG UNDER THE SKIN EVERY WEEK active Not Available Not Available No t Available Wegovy 0.25 mg/0.5 mL subcutaneou s pen injector Inject 0.5 mL every week by subcutane ous route. active Not Available Not Available No t Available Wegovy 0.5 mg/0.5 mL subcutaneou s pen injector ADMINISTE R 0.5 MG UNDER THE SKIN EVERY WEEK active Not Available Not Available No t Available Paxlovid 300 mg (150 mg x 2)-100 mg tablets in a dose pack TAKE 2 NIRMATREL VIR TABLETS ALONG WITH 1 RITONAVIR TABLET. TAKE ALL THREE TABLETS TWICE DAILY FOR 5 DAYS 06/26 completed Not Available Not Available Not Available Vitals Date Recorded Body height Body mass index (BMI) Body weight Body temperature Heart rate Systolic blood pressure Diastolic blood pressure Provider Name and Address Organization Details Last Updated DateTime 4 152.4 cm 32 kg/m2 78875.1 5 g 96.6 [degF] 72 /min 116 mm[Hg] 72 mm[Hg] Anisha Diggs RN [facility] [employer] [facility] 4 16:10:02 Date Recorded Body height Body mass index (BMI) Body weight Body temperature Heart rate Systolic blood pressure Diastolic blood pressure Provider Name and Address Organization Details Last Updated DateTime 4 152.4 cm 32.2 kg/m2 25966.7 4 g 98.2 [degF] 80 /min 132 mm[Hg] 88 mm[Hg] Anisha Diggs RN [facility] [employer] 4 16:07:21 Date Recorded Body height Heart rate Systolic blood pressure Diastolic blood pressure Provider Name and Address Organization Details Last Updated DateTime 01/26/2024 152.4 cm 73 /min 133 mm[Hg] 91 mm[Hg] CROW Fernandez [facility] [employer] 01/26/2024 16:15:08 Date Recorded Body mass index (BMI) Body weight Provider Name and Address Organization Details Last Updated DateTime 01/26/2024 31.2 kg/m2 73228.78 g Angelina Cohen [facility] [employer] [facility] 01/26/2024 16:57:38 Date Recorded Body height Body mass index (BMI) Body weight Body temperature Heart rate Systolic blood pressure Diastolic blood pressure Provider Name and Address Organization Details Last Updated DateTime 4 152.4 cm 32 kg/m2 07991.1 5 g 98.2 [degF] 84 /min 138 mm[Hg] 78 mm[Hg] Praveen Patrick RN [facility] [employer] [facility] 4 11:45:28 Date Recorded Body height Body mass index (BMI) Body weight Heart rate Respiratory rate Oxygen saturation Oxygen saturation in Arterial blood by Pulse oximetry Systolic blood pressure Diastolic blood pressure Provider Name and Address Organization Details Last Updated DateTime 4 152.4 cm 32 kg/m2 94437.1 5 g 75 /min 14 /min 98 % 98 % 111 mm[Hg] 77 mm[Hg] Rachael Renteria [facility] [employer] [facility] 4 12:34:27 Social History Question Answer Notes LastModified by Organizat ion Details LastModified Time Tobacco Smoking Status Former Smoker Quit May 2023 Praveen Patrick RN [facility] [employer] [facility] 10/29/2023 09:10:33 What Is Your Level Of Alcohol Consumption? None Information not available 03/13/2023 What Is Your Level Of Caffeine Consumption? Moderate Information not available 03/13/2023 How Much Tobacco Do You Smoke? 1 PPD Information not available 03/13/2023 Do You Use Any Illicit Or Recreational Drugs? No Information not available 03/13/2023 Sex: Unknown Functional Status None recorded. Mental Status None recorded. Family History Relationship Description Onset Age of this Age Resolved Age Notes LastModified by Organization Details LastModified Time Mother Hypertensive disorder [email or web address] Not available 2023 17:04:46 Brother Arthritis [email or web address] Not availabl e 01/26/2024 17:04:53 Medical History Condition Response ARTHRITIS Y HEADACHES/MIGRAINES Y HEARTBURN / REFLUX Y Gynecological History Statement/Question Response Current Control Method Hysterectom y Breast Problems no Discharge no Obstetrics History GPAL:G 3 P 0 0 0 3 Type Value Living 3 Total 3 Past Encounters Encounter ID Performer Location Encounter Start Date Encounter Closed Date Diagnosis/Indication Diagnosis SNOMED-CT Code Diagnosis ICD10 Code Diagnosis Note [id number] TYSON Fuentes [address] [place] [address] 03/13/2023 10:10:15 03/13/2023 11:05:57 Migraine 61910795 G43.909 Has been a new issue for the last 5 months-unt reatedEnco uraged increase fluid/elec trolyte replacemen tWill trial sumatripta nf/u 1 month Essential hypertension 90816280 I10 Was being treated with lisinopril -emily cough notedWill switch to amlodipine f/u 1 month [id number] TYSON Fuentes [address] [place] [address] 04/11/2023 10:50:59 04/11/2023 12:03:51 Migraine 62221019 G43.909 04-11-23 Has used phillip with mild relief, only tried 1 tabEncoura ged to try using 2 tabs with next migraine and report relief 03-13-23 Has been a new issue for the last 5 months-unt reatedEnco uraged increase fluid/elec trolyte replacemen tWill trial sumatripta nf/u 1 month Essential hypertension 63187234 I10 04-11-23 Has been taking amlodipine as ordered-AC E cough resolvedNo ASE noted with amlodipine bp 132/80 todayPt opts to f/u as needed 03-13-23 Was being treated with lisinopril -emily cough notedWill switch to amlodipine f/u 1 month Left temporomandibular joint disorder 4699934827 9618719 M26.602 Believe this may be part of the cause for her migrainesA lready has steroids for autoimmune disease-de ingrid trial cyclobenza eric [id number] TYSON Fuentes [address] [place] [address] 06/06/2023 11:40:52 06/06/2023 12:06:58 [id number] Mary Ellen Costello MD [facility] Primary Care [facility] [address] [facility] [address] 06/26/2023 16:15:51 06/26/2023 16:41:28 Standard chest X-ray abnormal 610305792 R93.89 Was told cxr showed pneumonia vs pulmonary fibrosisHa s h/o autoimmune disease on immune mediatorsH as 40 pack year h/o smokingNee ds CT chest for further evaluation Renewal of prescription [id number] Z76.0 has vaginitis from abx [id number] TASNEEM FuentesP-Blaine [facility] Primary Care [facility] [address] [facility] [place] [address] 09/23/2023 15:14:43 09/23/2023 15:53:11 Syncope [id number] R55 -notes episode of syncope, ptosis on 09/02, taken by ambulance, stroke ruled out, was told to f/u with pcp/neuro- noted some dizziness for approx, believes she fainted again but she was already laying down watching television , noted the dog alerting him-noted flashing/f loaters to vision starting on 09/15-unabl e to get into neurologis t (Dr. Xiao's office) until November 12-la paperwork to be filled out Mass of neck [id number] R 22.1 -incidenta l finding noted while being in the hospital-f inding it hard to swall-smal l mass noted to L neck-US ordered [id number] Mary Ellen Costello MD [facility] Primary Care [facility] [address] [facility] [address] [facility] [place] [address] 10/29/2023 09:06:42 10/29/2023 09:42:22 Multinodular goiter [id number] E04.2 recommend repeat US in 2 years Dysphagia 62180701 R13.1 0 ?silent refluxGI referralom eprazole 40 mg daily x 90 daysreview ed s/s that warrant urgent/wilmer rgent eval in meantime Cervical lymphadenopathy 399122242 R59.[address] neck with contrast Pain in throat [id number] R07.0 may be due to silent reflux, but will treat for infection given lymphadeno pathycall/ return if no improvemen t in 1 week reviewed s/s that warrant urgent/wilmer rgent eval in meantime [id number] TYSON Fuentes [facility] Primary Care [address] [place] [address] 11/13/2023 15:59:57 11/13/2023 16:43:01 Syncope [id number] R55 11-13-23-sh e was unable to get much help from going to the neurology, believes condition to be vasovagal- she was given a ref to cardiology -no further episodes of syncope noted-she is needing a note to cover her to be off work until further testing can be completed per cardiology -note given-plan to f/u on 12/2409-03-23-not es episode of syncope, ptosis on 09/02, taken by ambulance, stroke ruled out, was told to f/u with pcp/neuro- noted some dizziness for approx, believes she fainted again but she was already laying down watching television , noted the dog alerting him-noted flashing/f loaters to vision starting on 09/15-unabl e to get into neurologis t (Dr. Xiao's office) until November 12-[facility] paperwork to be filled out Dysuria [id number] R30.0 -noting dysuriac, blood-urin e dip obtained [id number] TYSON Fuentes [facility] Primary Care [address] [place] [address] 12/25/2023 15:58:41 12/25/2023 16:33:23 Syncope [id number] R55 12-25-23-ca rdiology f/u yesterday- arrhythmia noted-neur ology already signed off on RTW-she is needing a note for work to return on 12/28-note generated 11-13-23-sh e was unable to get much help from going to the neurology, believes condition to be vasovagal- she was given a ref to cardiology -no further episodes of syncope noted-she is needing a note to cover her to be off work until further testing can be completed per cardiology -note given-plan to f/u on 12/2424-not es episode of syncope, ptosis on 09/02, taken by ambulance, stroke ruled out, was told to f/u with pcp/neuro- noted some dizziness for approx, believes she fainted again but she was already laying down watching television , noted the dog alerting him-noted flashing/f loaters to vision starting on 09/15-unabl e to get into neurologis t (Dr. Xiao's office) until November 12-[facility] paperwork to be filled out [id number] Lang Chapman DPM [facility] Podiatry [place] [address] [place] [address] 01/26/2024 16:07:55 01/27/2024 11:24:51 Pain in both feet [id number] 2525853 M79.671 M79.672 Bilateral plantar fasciitis [id number] 8341284 M72.2 discussed shoe gearRecomm end orthoticsS tretching and icing instructio ns reviewedBi lateral heel injections today monitor for signs of infection at present seek medical attention immediatel yFollow-up in 1 month if continues be problemati c at that time physical therapy [place] spur [id number] M77.32 [id number] NESTOR Mehta-Blaine [facility] Primary Care [facility] [address] [facility] [address] [place] [address] 02/11/2024 11:40:27 02/11/2024 14:37:18 Essential hypertension 63087603 I10 138/78. Adult [facility] examination [id number] Z00.00 Discussed healthy eating and exercise.D iscussed routine eye and dental exams.Disc ussed continuing care with specialist as scheduled. Screening for malignant neoplasm of breast 293160294 Z12.39 Hepatitis C screening 41 2397031 Z11.59 Body mass index 30+ - obesity 949840486 Z68.32 BMI 32. [id number] Lang Chapman DPM [facility] Podiatry [place] [address] [place] [address] 05/24/2024 12:16:46 05/25/2024 11:23:58 Bilateral plantar fasciitis 3043696202 2462667 M72.2 resolved left heelcontin ues right heeldiscus sed shoe gearRecomm end orthotics - Powerstep pro techrepeat injection right heel todayStret yojana and drissng instructio ns reviewedst retching exercises reviewedfo llow-up 1 month if continues be problemati c at that time physical therapy Health Concerns Section Related Observation LastModified by Organization Detai ls LastModified Time None Recorded Concern Status LastModified by Organization Details LastModified Time None Recorded Advance Directives Directive None Recorded Payers Encounter Date Sequence Insurance Name Policy Number Policy Perales Covered Member ID Perales Member ID Guarantor Name 11/13/2023 1 [employer] [id number] Elvira Morataya [id number] Elvira Morataya 12/25/2023 1 [employer] [id number] Elvira Morataya [id number] Elvira Morataya 01/26/2024 1 [employer] [id number] Elvira Morataya [id number] Elvira Morataya 02/11/2024 1 [employer] [id number] Elvira Morataya [id number] Elvira Morataya 05/24/2024 1 [employer] [id number] Elvira Morataya [id number] Elvira Morataya Notes Date Note Type Note Provider Name and Address Organization Details Recorded Time 11/13/2023 text/html pt is here for syncope and dysuria f/u Rita Rowland, [employer] [address] [facility], [place] [address], [place], [address], [employer] 11/19/2023 08:30:57 12/25/2023 text/html pt is here for syncope f/u Rita Rowland, [employer] [address], [place] [address], [place], [address], [employer] 12/25/2023 16:31:45 01/26/2024 text/html . Patient is a 53-year-old female who presents the office with complaints of pain to both feet. Patient states she has a 9/10 with walking and standing. Patient states she can not walk at all without pain. Patient describes the pain as throbbing aching and constant in nature. Patient states that she has been treated by another architectural project captain for this which she gets injections and states that the pain resolves. Patient denies any other complaints. Lang Chapman DPM [address], [address], [place], [address], [employer] 01/26/2024 17:13:37 02/11/2024 text/html Patient is a 53 year old female that presents to the office for annual wellness. Patient reports she is doing well on her current medications and continues to follow Cardiology, Neurology and Rheumatology. Patient is inquiring about starting Wegovy as she has been experiencing weight gain due to lack of mobility from the RA. Patient is also hopeful that the Wegovy will help with her RA symptoms as she is in multiple support groups and has learned that it has helped many individuals. Patient denies chest pain and shortness of breath, nausea vomiting and diarrhea. labs-orderedmammogr am-orderedcolonosco py-2019.....Gallardo unsure when to repeat.Flu-declines Covid-declinesTdap- any pharmacy.TYSON Townsend [address], [address], [place], [address], [employer] 02/11/2024 12:13:05 05/24/2024 text/html . Patient is 54-year-old female she returns the office status post plantar fasciitis bilateral feet she was last seen on 01/26/2024. Patient states that her pain in the left heel has completely resolved she states that she is doing well she states that she continues have pain in her right heel she has underwent bilateral heel injections she states did help significantly but pain has returned to the right she denies any injury to the right heel. Patient denies any bruising or redness or open wounds to the area. Patient states when she is walking in his more painful. Patient states when she is at rest it does feel better. Lang Chapman DPM [address], [address], [place], [address], [employer] 05/24/2024 14:36:09 OBGyn Episode No OBEpisode recorded.
--- OUTSIDE RECORDS SUMMARY | 2024-09-30 16:09 | XMS_ITS | Continuity of Care Document ---
Author Organization [facility] Address [address] [place] [address] [address] [place] [address] Phone Care Team Providers Care Fluid Power Mechanic Name Role Phone Marielena Ford Unavailable Unavailable Advance Directives Directive Yes / No Effective Date File Name No Information Encounters Encounter Description Practice Location Reason(s) For Visit Diagnoses Date Provider Providers Copied on Encounter [facility], [address], [place], [place], [id number], [place] tel:[phone] [facility] [place] No Information [address] [facility] , [address], [place], [address], [place]. tel:[phone] Family History Family Member Type Diagnosis Age At Onset No Information Payers Payer name Insurance type Covered republican ID Authoriza tion(s) No Information Social History Type Description Quantity Date Captured Comments Sex Female Smoking Status No Information Chief Complaint And Reason For Visit No Information Reason For Referral Reason For Referral No Information History Of Present Illness Encounter Date Complaint History Of Prese nt Illness No Information Functional Status Date Functional Assessmen t No Information Instructions Date Instruction Additional Infor mation No Information Assessments Type Assessment Date No Information Patient Care Teams Name Effective Dates (start - stop) Status Members No Information
--- OUTSIDE RECORDS SUMMARY | 2024-09-30 16:11 | XMS_ITS | Continuity of Care Document ---
Author Organization [facility] Address [address] [place] [address] [address] [place] [address] Phone Care Team Providers Care Wool Puller Name Role Phone Marielena Ford Unavailable Unavailable Advance Directives Directive Yes / No Effective Date File Name No Information Encounters Encounter Description Practice Location Reason(s) For Visit Diagnoses Date Provider Providers Copied on Encounter [facility], [address], [place], [place], [id number], [place] tel:[phone] [facility] [place] No Information [address] Liliana [address]. [address] [facility] , [address], [place], [address], [place]. tel:[phone] Family History Family Member Type Diagnosis Age At Onset No Information Payers Payer name Insurance type Covered constitution party ID Authoriza tion(s) No Information Social History [...]
--- OUTSIDE RECORDS SUMMARY | 2024-09-30 16:11 | XMS_ITS | Encounter Summary ---
Author Organization [facility] Address [address] [place] [address] Care Team Providers Care It Desktop Support Technician Name Role Phone Candida Sellers STONE SAWYER Primary Care Provider [phone] Kelley Stevens SACK LIFTER- Primary Care Provider + Bolivar Rowland STONE SAWYER Primary Care Provider [phone] Encounter Details Date Type Department Care Team (Late st Contact Info) Description 01/27/2023 Larky Message Enc [facility] Family [facility] Internal Medicine [address] [address] Luis, [facility] Provider appt Social History Tobacco Use Types Packs/Day Years Used Date Smoking Tobacco: Every Day Cigarettes 1 35 Smokeless Tobacco: Never Alcohol Use Standard Drinks/Week Comments Yes 0 (1 standard drink = 0.6 oz pure alcohol) states maybe once a month- a few mixed drinks AUDIT-C Answer Date Recorded Frequency of Alcohol Consumption Never 06/23/2019 Average Number of Drinks Not on file 019 Frequency of Binge Drinking Not on file 05/29 PHQ-2 Answer Date Recorded Patient Health Questionnaire-2 Score 0 08/09/2022 Education Answer Date Recorded What is the highest level of school you have completed or the highest degree you have received? 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, shoveling, pickaxing, heavy lifting Not on file Not on file Not on file documented as of this encounter Plan of Treatment Not on file documented as of this encounter Visit Diagnoses Not on filedocumented in this encounter Additional Health Concerns Infection Onset Date Last Indicated Resolved Time COVID-19 Rule Out 12/02/2023 12/02/2023 12/02/2023 8:58 AM CDT Assessment Noted Time PHQ-9 Depression Total Score: 4 07/26/20 22 10:46 AM GELATIN POWDER MIXER documented as of this encounter Care Teams It Desktop Support Technician Relationship Specialty [place] [address] [address], [address] [place] [address] PCP - General Nurse Practitioner Family 11/01/2201/26 Kelley Stevens, [facility]- [address] [address], [address] [place] [address] PCP - General Nurse Practitioner Family 02/20/2303/03 Bolivar Rowland NP [address] [place] [address] PCP - General Nurse Practitioner Family 03/04/23 documented as of this encounter
--- OUTSIDE RECORDS SUMMARY | 2024-09-30 16:11 | XMS_ITS | Clinical Summary ---
Author Organization [facility] Address [address] [place] [address] Care Team Providers Care Field Staff Manager Name Role Phone Bolivar Rowland NP Primary Care Provider [phone] Allergies No known active allergies Medications multi vitamin/minerals tablet Take 1 tablet by mouth daily. Active leflunomide 20 MG tablet Take 20 mg by mouth daily. 1 Active azaTHIOprine 50 MG tablet Take 150 mg by mouth daily. 1 Active celecoxib 200 MG capsule Take 200 mg by mouth 2 (two) times daily. 1 Active Golimumab (SIMPONI ARIA IV)Indications:q 8 wks Indications: q 8 wks Active lisinopril-hydroC HLOROthiazide (ZESTORETIC) 10-12.5 MG tabletIndications :Primary hypertension Take 1 tablet by mouth daily. 30 tablet 2 3 Active predniSONE (DELTASONE) 2.5 mg tabletIndications :Arthritis Take 1-3 tabs by mouth every morning as needed for arthritis control. 30 tablet 3 Active baclofen (LIORESAL) 10 MG tablet Take 1 tablet (10 mg total) by mouth 3 (three) times daily as needed. 30 tablet 3 Active Active Problems Problem Noted Date Diagnosed Date Primary hypertension 09/30/2022 Acute cystitis without hematuria 05/29/2022 Fever, unspecified fever cause 08/15/2021 Body aches 08/15/2021 Lumbar radiculopathy 10/13/2019 Chronic low back pain with b ilateral sciatica, unspecified back pain laterality 09/29/2019 Psoriatic arthritis of multiple joints ([facility]) 05/29/2019 Intestinal metaplasia of gastric mucosa 05/20/20 19 Dyspepsia 02/25/2019 Personal history of colonic polyps 02/25/2019 Personal history of Helicobacter infection 02/25 Multiple benign melanocytic nevi of upper extremity, lower extremity, and trunk 03/28/2018 SK (seborrheic keratosis) 03/28/2018 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 Tinea versicolor 06/18/2016 Arthralgia of multiple sites 06/10/2016 Ulcer of the stomach caused by bacteria (h. 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 ([facility]) 09/20/2019 08/09/2022 Intentional amphetamine over dose ([facility]) 09/19/2019 08/09/2022 Scabies 02/11/2018 11/23/2020 Immunizations Name Administration Dates Next Due COVID-19 Vaccine (Generic) 04/24/2021(Deferred: Patient Refused) Fluzone Adult - >Age 3 (Pref illed Syringe) 09/29/2019(Deferred: Patient Refused) Td (Tenivac) preservative free 12/08/2012 Family History Medical History Relation Comments Lung Cancer Father brain cancer Father Hypertension Mother Obesity Mother Relation Status Comments Father Mother Alive Social History Tobacco Use Types Packs/Day Years Used Date Smoking Tobacco: Every Day Cigarettes 1 35 Smokeless Tobacco: Never Tobacco Cessation:Ready to Q uit: No; Counseling Given: Yes Alcohol Use Standard Drinks/Week Comments Yes 0 [...] CDT Gender Identity Female 08/15/2021 5:25 AM DIRECTOR UNDERWRITER SALES Sexual Orientation Straight 08/15/2021 5: 25 AM DIRECTOR UNDERWRITER SALES 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, shoveling, pickaxing, heavy lifting Not on file Not on file Not on file Last Filed Vital Signs Vital Sign Reading Time Taken Comments Blood Pressure 131/96 12/02/2023 8:00 AM CDT Pulse 108 12/02/2023 8:00 AM CDT Temperature 37.2 C (99 F) 12/02/2023 8:00 AM CDT Respiratory Rate 19 12/02/2023 8:00 AM CDT Oxygen Saturation 97% 12/02/2023 8:00 AM CDT Inhaled Oxygen Concentration - - Weight 72.6 kg (160 lb) 12/02/2023 8:00 AM CDT Height 152.4 cm (5') 12/02/2023 8:00 AM CDT Body Mass Index 31.25 12/02/2023 8:00 AM CDT Plan of Treatment Health Maintenance Due Date Last Done Comments Annual Physical 1972 COVID-19 Vaccine (#1) 1974 Pneumococcal Vaccine: Pediatrics (0 to 5 Years) and At-Risk Patients (6 to 64 Years) (1 of 2 - PCV) 1975 PHQ-2 (Physician [place]) 1981 Hepatitis C 1987 Hepatitis B Vaccines (1 of 3 - 19+ 3-dose series) 1988 Zoster Vaccines (1 of 2) 1988 Mammogram Screening 2009 DTaP, Tdap and Td Vaccines ( 1 - Tdap) 12/09/2012 12/08/2012, 12/08/2012 Influenza Adult (#1) 2024 Lung Cancer Screening 07/14/2024 07/14/2023 PHQ-2 (Physician [place]) 07/28/2024 Colorectal Cancer Screening Colonoscopy (10 Years) 04/14/2029 04/14/2019 Meningococcal B Vaccine Aged Out No l onger eligible based on patient's age to complete this topic Meningococcal Vaccine Aged Out No horace gaurav eligible based on patient's age to complete this topic RSV Immunizations Under 20 Months Aged Out No longer eligible b ased on patient's age to complete this topic Procedures Procedure Name Priority Date/Time Associated Diagnosis Comments CT CHEST WO CON Routine 07/14/2023 3:40 PM DIRECTOR UNDERWRITER SALES Abnormal findings on diagnostic imaging of other specified body structures COLONOSCOPY GENERIC (SCAN ORDER) Routine 04/14/2019 from Last 3 Months or Most Recently Relevant to Health Maintenance Results * CT CHEST WO CON (07/14/2023 3:40 PM DIRECTOR UNDERWRITER SALES) Anatomical Region Laterality Modality Chest Computed Tomogra phy 07/16/2023 7:35 PM DIRECTOR UNDERWRITER SALES Impressions 07/16/2023 7:42 PM DIRECTOR UNDERWRITER SALES IMPRESSION: 1. No infiltrate or effusion. No pneumothorax. 2. Follow-up in 12 months for subtle 2 mm nodule in left lower lobe as detailed above.. 3. Well-defined sclerotic focus within the sternum as detailed above. This can be followed on follow-up CT. If there is history of carcinoma, follow-up with total body bone scan. Referred By: MARY ELLEN COSTELLO Interpreted By: Sam Roth MD, 07/16/2023 7:35 PM Narrative 07/16/2023 7:42 PM DIRECTOR UNDERWRITER SALES IMAGING STUDIES: CT CHEST WO CON DATE: 07/14/2023 3:25 PM COMPARISON STUDIES: No comparisons. CLINICAL HISTORY: Normal diagnostic imaging.. . Radiation dose reduction technique was utilized. CONTRAST: None FINDINGS: 1. No infiltrate or effusion. No pneumothorax. 2. Atherosclerotic aorta without dilatation. No pericardial effusion. No pathologic lymphadenopathy on this limited noncontrast study. 3. Subtle 2 mm nodule in left lower lobe on image 66 of series 3. Follow-up in 12 months.. No other pulmonary nodules. 4. Mild mucosal thickening of the esophagus may be due to mild reflux. Upper abdomen with normal adrenals. Possible gallbladder calculi without inflammation. Mild fatty liver. Nonobstructing left-sided renal calculi with the largest in the upper pole measuring 6.3 mm. Degenerative change in thoracic spine. . 5. 1.1 cm well-defined sclerotic focus within the left parasagittal and inferior sternum. On image 51 of series 3, bone windows. Uncertain etiology. This can be followed, on follow-up imaging. If there is history of carcinoma, follow-up with total body bone scan. Old healed right-sided rib fracture Procedure Note Sam Roth MD - 07/16/2023 IMAGING STUDIES: CT CHEST WO CON DATE: 07/14/2023 3:25 PM COMPARISON STUDIES: No comparisons. CLINICAL HISTORY: Normal diagnostic imaging.. . Radiation dose reductiontechnique was utilized. CONTRAST: None FINDINGS: 1. No infiltrate or effusion. No pneumothorax. 2. Atherosclerotic aorta without dilatation. No pericardial effusion.No pathologic lymphadenopathy on this limited noncontrast study. 3. Subtle 2 mm nodule in left lower lobe on image 66 of series 3.Follow-up in 12 months.. No other pulmonary nodules. 4. Mild mucosal thickening of the esophagus may be due to mild reflux.Upper abdomen with normal adrenals. Possible gallbladder calculi withoutinflammation. Mild fatty liver. Nonobstructing left-sided renal calculiwith the largest in the upper pole measuring 6.3 mm. Degenerative changein thoracic spine. . 5. 1.1 cm well-defined sclerotic focus within the left parasagittal andinferior sternum. On image 51 of series 3, bone windows. Uncertainetiology. This can be followed, on follow-up imaging. If there ishistory of carcinoma, follow-up with total body bone scan. Old healedright-sided rib fracture IMPRESSION: 1. No infiltrate or effusion. No pneumothorax. 2. Follow-up in 12 months for subtle 2 mm nodule in left lower lobe asdetailed above.. 3. Well-defined sclerotic focus within the sternum as detailed above.This can be followed on follow-up CT. If there is history of carcinoma,follow-up with total body bone scan. Referred By: MARY ELLEN COSTELLO Interpreted By: Sam Roth MD, 07/16/2023 7:35 PM us Mary Ellen Costello MD CT Final Resul t * COLONOSCOPY (04/14/2019) us Documents Scanned SCANNING Edited Result - Final from Last 3 Months or Most Recently Relevant to Health Maintenance Insurance [facility] Care Teams Field Staff Manager Relationship Specialty Start Date End Date Bolivar Rowland NP [address] [place] [id number] PCP - General Nurse Practitioner Family 03/04/23
--- OUTSIDE RECORDS SUMMARY | 2024-09-30 16:11 | XMS_ITS | Encounter Summary ---
Author Organization [facility] Address [address] [place] [id number] Care Team Providers Care Environmental Health Specialist Name Role Phone Juan J Arias MD Primary Care Provider U Candida Yen ELDER ASSISTANT Primary Care Provider [phone] Kelley Stevens [facility] Primary Care Provider + Bolivar Rowland ELDER ASSISTANT Primary Care Provider [phone] Encounter Details Date Type Department Care Team (Latest Contact Info) Description 04/02/2018 Abstract [facility] Juan J Arias MD Social History Tobacco Use Types Packs/Day Years Used Date Smoking Tobacco: Smoker, Current Status Unknown Comments Unknown Sex and Gender Information Value Date Recorded Sex Assigned at Not on file Legal Sex Female 10:44 PM CDT Gender Identity Female 08/15/2021 5:25 AM COAL PIPELINE OPERATOR Sexual Orientation Straight 08/15/2021 5: 25 AM COAL PIPELINE OPERATOR documented as of this encounter Plan of Treatment Not on file documented as of this encounter Visit Diagnoses Not on filedocumented in this encounter Additional Health Concerns Infection Onset Date Last Indicated Resolved Time COVID-19 Rule Out 08/03/2020 08/03/2020 08/03/2020 2:20 PM COAL PIPELINE OPERATOR COVID-19 Rule Out 08/03/2020 08/03/2020 08/05/2020 10:40 PM COAL PIPELINE OPERATOR COVID-19 Rule Out 04/24/2021 04/24/2021 04/24/2021 2:59 PM CDT COVID-19 Rule Out 08/15/2021 08/15/2021 08/15/2021 10:48 AM COAL PIPELINE OPERATOR COVID-19 Confirmed 08/15/2021 08/15/2021 12:32 AM COAL PIPELINE OPERATOR COVID-19 Rule Out 03/25/2022 03/25/2022 03/25/2022 4:44 PM CDT COVID-19 Confirmed 03/25/2022 03/25/2022 12:32 AM CDT COVID-19 Rule Out 12/02/2023 12/02/2023 12/02/2023 8:58 AM CDT documented as of this encounter Care Teams Environmental Health Specialist Relationship Specialty Start Date End Date Juan J Arias MD PCP - General INTERNAL MEDICINE 06/23/19 10/31/22 [place] [address] [place], [place] [id number] PCP - General Nurse Practitioner Family 11/01/22 701/17 Kelley Stevens, BARGE ENGINEER- [address], [address] [place] [address] PCP - General Nurse Practitioner Family 02/20/2303/03 Bolivar Rowland NP [address] [place] [id number] PCP - General Nurse Practitioner Family 03/04/23 documented as of this encounter
== END 2024-09-30 15:09 | disposition home or self-care (01) ==
PROVIDERS: Emergency Provider Nurse Practitioner Family; PCP Nurse Practitioner Family
DX: R42 Dizziness and giddiness (principal); M06.9 Rheumatoid arthritis, unspecified; Z87.891 Personal history of nicotine dependence
CPT/HCPCS: 99213; G0463

== ENCOUNTER 2024-12-22 07:39 | Emergency (ER) | payer OTHER, SELFPAY ==
[2024-12-22] VITALS (7 sets, daily range): BP systolic 140–153; BP diastolic 78–95; PULSE 90–108; RESP 14–20; TEMP 37.7; O2SAT 97–100
--- NOTE | ~2024-12-22 | XR_ITS ---
EXAMINATION: XR chest 2V 12/22/2024 09:08 INDICATION: Cough and congestion. Weakness. Chills. PROCEDURE: 2 view chest COMPARISON: 08/14/2023 FINDINGS: The lungs are clear. The cardiomediastinal silhouette is within normal limits. There are no pleural effusions. There is no pneumothorax suspected. IMPRESSION: 1: NO ACUTE CARDIOPULMONARY DISEASE. Reviewed, dictated and finalized at location A.
--- OUTSIDE RECORDS SUMMARY | 2024-12-22 07:42 | XMS_ITS | Referral Summary ---
Author Organization [facility] Address [address] [place] [address] Care Team Providers Care Retail Project Merchandiser Name Role Phone Bolviar Rowland NP Primary Care Provider [phone] Allergies No known active allergies Medications hyoscyamine [...] on file Legal Sex Female 3:06 PM CHANGE NUMBER OPERATOR Gender Identity Not on file Sexual Orientation Not on file Last Filed Vital Signs Vital Sign Reading Time Taken Comments Blood Pressure 98/86 09/02/2023 12:30 PM CHANGE NUMBER OPERATOR Pulse 73 09/02/2023 12:30 PM CHANGE NUMBER OPERATOR Temperature 36.1 C (97 F) 09/02/2023 9:30 AM CHANGE NUMBER OPERATOR Respiratory Rate 19 09/02/2023 12:30 PM CHANGE NUMBER OPERATOR Oxygen Saturation 99% 09/02/2023 12:30 PM CHANGE NUMBER OPERATOR Inhaled Oxygen Concentration - - Weight 72.6 kg (160 lb) 09/02/2023 9:30 AM CHANGE NUMBER OPERATOR Height 152.4 cm (5') 09/02/2023 9:30 AM CHANGE NUMBER OPERATOR Body Mass Index 31.25 09/02/2023 9:30 AM CHANGE NUMBER OPERATOR Plan of Treatment Not on file Procedures [...] Gender: Female Attending MD: Elvia Holliday Room: [facility] ENDOSCOPY ROOM 5 Note Status: Finalized Procedure: [...] scope was passed under direct vision.The CF [id number] endoscope was introduced throughthe anus and advanced to the cecum, identified by appendiceal orifice and ileocecal valve. The colonoscopy was performed without difficulty. The patient tolerated the procedure well. The quality of the bowel preparation was evaluated using the BBPS ([place] Bowel Preparation Scale) with scores of:Right Colon [...] On: 04/14/2019 8:54 AM Recognized by the [place] [employer] for promoting quality in endoscopy Emi Pinedo MD ENDOSCOPY PROCEDUR ES Final Result from Last 3 Months or Most Recently Relevant to Health Maintenance Insurance [facility] [place] [id number] Advance Directives For more information, please contact: [phone] * Full Code (Latest Code Status on File) Date Activated Date Inactivated Comments 04/14/2019 8:23 AM 04/14/2019 2:43 PM Care Teams Retail Project Merchandiser Relationship Specialty Start Date End Date Bolivar Rowland NP [address] [place] [address] PCP - General Family Medicine 12/12/23
--- OUTSIDE RECORDS SUMMARY | 2024-12-22 07:42 | XMS_ITS | Data Portability ---
Author Organization [place] [employer], Main Office Address [address] [place] [address] Care Team Providers Care Roofer Applicator Name Role Phone RITA ROWLAND Primary Care Provider [phone] Assessment Encounter Date Assessment Date Assessment LastModified by Organization Details LastModified Time 01/26/2024 01/26/2024 This note is dictated and transcribed by [employer]. Final Expense Agent variances may occur. Despite proofreading, typographical errors may occur. Occasional wrong-word or 'drqbq-a-[id number]' substitutions may have occurred due to the inherent limitations of voice recording. Read the chart carefully and recognize, using context, where substitutions have occurred. Not available 01/26/2024 17:06:33 05/24/2024 05/24/2024 This note is dictated and transcribed by [employer]. Final Expense Agent variances may occur. Despite proofreading, typographical errors may occur. Occasional wrong-word or 'lqpvg-t-zdxc' substitutions may have occurred due to the inherent limitations of voice recording. Read the chart carefully and recognize, using context, where substitutions have occurred. Not available 05/24/2024 14:35:13 Plan of Treatment Reminders Order Date Submit Date Provider Last Modified By Organization Details Last Modified Time Details Appointments None recorded. Lab CBC w/ auto diff 2023 024 [email or web address] 477 [facility] (Lab), [address] [place], [address], 10:04:30 lipid panel, serum 2023 024 [email or web address] 477 [facility] (Lab), [address] [place], [address], 4 10:04:30 CMP, serum or plasma [address] [facility] [address] [place] [address] (Lab), [address] [place], [address], 4 10:04:30 vitamin D, 25-hydroxy, total, serum 20[address] [place] [address] (Lab), [address] [place], [address], 4 10:04:29 vitamin B12 + folate, serum or blood 20[address] [facility] [address] [place] [address] (Lab), [address] [place], [address], 4 10:04:30 glycohemogl obin, total, blood [address] (Lab), [address] [place], [address], 4 10:04:30 TSH, serum or plasma 2023 [address] [facility] [address] [place] [address] (Lab), [address] [place], [address], 4 10:04:30 hepatic function panel, serum 20[address] [facility] [address] [address] (Lab), [address] [place], [address], 4 10:04:31 hepatitis C virus Ab, serum [address] (Lab), [address] [place], [address], 4 10:04:29 urinalysis, dipstick 2023 024 [facility] [address], [place], [address], 4 16:47:50 urinalysis complete, reflex culture 2023 024 [email or web address] 4 [facility] ([facility]), [address] [facility], [place], [address], 4 16:45:28 Referral None recorded. Procedures None recorded. Surgeries None recorded. Imaging MAMMO, screening, digital, bilateral - *Please call pt to schedule* 2023 [email or web address] [place] [address], [address], [place], [address], 4 09:20:23 XR, foot, 3 or more view [email or web address] [facility] [place], [address], [place], [address], 4 17:09:37 XR, foot, 3 or more view 2023 [email or web address] [place] [address] [facility] [place], [address], [place], [address], 4 17:09:37 Medication Orders Wegovy 0.25 mg/0.5 mL subcutaneou s pen injector 2023 024 [id number], [address] [place], [place], [id number], 4 12:04:03 Patient TargetsNo targets recorded. Patient Instructions Encounter Date Encounter Id Patient Instructions Last Modified By Organization Details Last Modified Time 01/26/2024 [id number] plantar fasciitis: exercises Not available 01/26/2024 17:09:37 plantar fasciiti s education Not available 01/26/2024 17:09:37 Reason for Referral None Reported. Results Created Date Observation Date Name Description Value Unit Range Abnormal Flag Note LastModifiedBy Organization Detail LastModifiedTime 11/13/19 24 11/13/2023 urina lysis , dipst ick Leukocytes (reference range: negative pippa/ l) Large Not Available [address], [place], [address], 11/13/2023 16:23:50 11/13/19 24 11/13/2023 urina lysis , dipst ick Nitrite (reference rage: negative mg/dl) positi ve Not Available [address], [place], [address], 11/13/2023 16:23:50 11/13/19 24 11/13/2023 urina lysis , dipst ick Urobilinogen (reference range: 0.2-1 mg/dl) 0.2 Not Available [address], [place], [address], 11/13/2023 16:23:50 11/13/19 24 11/13/2023 urina lysis , dipst ick Protein (reference range: negative mg/dl) Modera te Not Available [address], [place], [address], 11/13/2023 16:23:50 11/13/19 24 11/13/2023 urina lysis , dipst ick pH (reference range: 5-7) 6.0 Not Available [address], [place], [address], 11/13/2023 16:23:50 11/13/19 24 11/13/2023 urina lysis , dipst ick Blood (reference range: negative Jaden/ l) Small Not Available [address], [place], [address], 11/13/2023 16:23:50 11/13/19 24 11/13/2023 urina lysis , dipst ick Specific [place] (reference range: 1.005-1.030) 1.025 Not Available [address], [place], [address], 11/13/2023 16:23:50 11/13/19 24 11/13/2023 urina lysis , dipst ick Ketone (reference range: negative mg/dl) Negati ve Not Available [address], [place], [address], 11/13/2023 16:23:50 11/13/19 24 11/13/2023 urina lysis , dipst ick Bilirubin (reference range: negative mg/dl) Negati ve Not Available [address], [place], [address], 11/13/2023 16:23:50 11/13/19 24 11/13/2023 urina lysis , dipst ick Glucose (reference range: negative mg/dl) Negati ve Not Available [address], [place], [address], 11/13/2023 16:23:50 11/13/19 24 11/13/2023 urina lysis , dipst ick Appearance Cloudy Not Available [address], [place], [address], 11/13/2023 16:23:50 11/13/19 24 11/13/2023 urina lysis , dipst ick Color Yellow Not Available [facility] [address], [place], [address], 11/13/2023 16:23:50 10/22/19 24 10/21/2023 US, neck, soft tissu e No observ ation record ed. [email or web address] [facility] [address], [place], [address], 10/29/2023 09:31:10 11/04/19 24 11/04/2023 CT, neck, soft tissu e, w/ contr ast No observ ation record ed. [email or web address] [facility] [address], [place], [address], 12/18/2023 11:36:28 01/26/20 24 XR, foot, 3 or more view No observ ation record ed. [facility] [place] [address] [facility] [address], [place], [address], 01/26/2024 17:08:36 01/26/20 24 XR, foot, 3 or more view No observ ation record ed. [facility] [place] [address] [facility] [address], [place], [address], 01/26/2024 17:08:27 Result Notes None recorded. Problems Name Problem SNOMED Code Status Onset Date Resolution Date Notes Provider Name and Address Organization Details Recorded Time Osteoarthr itis 354155589 Active 2016 Not Available [employer] 3 18:24:20 Migraine 24344983 Active 2022 TYSON Fuentes [address], [place], [address] , [place] - [facility] [employer] [facility] 3 10:45:03 Essential hypertensi on 66328472 Active 2022 TYSON Fuentes [address], [address], [place], [address] , [place] [facility] 3 10:55:38 Otalgia of left ear 5546310686 Active 2022 NESTOR Fuentes-C [address], [address], [place], [address] , [place] [facility] 3 11:14:37 Left temporoman dibular joint disorder 7807114914552 9100 Active 2022 TYSON Fuentes [address], [address], [place], [address] , [place] [facility] 3 11:24:31 Blood in urine 93349892 Active 2022 Shyla Gonzales LPN null, [place] [facility] 3 11:37:01 Acute urinary tract infection 471122611 Active 2022 JASPER Wood [address], [address], [place], [address] , [place] [facility] 3 08:44:13 Candidiasi s of vagina 65325762 Active 2022 JASPER Wood [address], [address], [place], [address] , [place] [facility] 3 09:21:52 Standard chest X-ray abnormal 075220561 Active 2022 Mary Ellen Costello MD [address], [address], [place], [address] , [place] [facility] 3 16:35:13 Nodule of lung 739269540 Active 2022 Mary Ellen Costello MD [address], [address], [place], [address] , [place] [facility] 3 17:30:13 Computed tomography result abnormal 224799953 Active 2023 Mary Ellen Costello MD [address], [address], [place], [address] , [place] [facility] 4 12:42:03 Syncope 170829702 Active 2023 TYSON Fuentes [address] [address], [place], [address] , [facility] 4 15:35:03 Mass of neck 199395985 Active 2023 TYSON Fuentes [address], [address] , [facility] 4 15:48:09 Multinodul ar goiter 714033087 Active 2023 Mary Ellen Costello MD [address], [address] , [facility] 4 09:34:10 Dysphagia 39991709 Active 2023 Mary Ellen Costello MD [address] [address], [place], [address] , [facility] 4 09:35:46 Cervical lymphadeno mark 761127560 Active 2023 Mary Ellen Costello MD [address], [address] , [facility] 4 09:36:09 Pain in throat 786864167 Active 2023 Mary Ellen Costello MD [address], [address] , [facility] 4 09:40:07 Dysuria 79020960 Active 2023 Iliana Roman RN null, [place] [facility] 5 12:04:53 Arthritis 5396220 Active 2023 Angelina Cohen null, [place] [facility] 4 17:02:22 Headache 33888993 Active 2023 Angelina quiñonez, [place] [facility] 4 17:02:33 Heartburn 36862995 Active 2023 Angelina quiñonez, [place] [facility] 4 17:04:08 Pain in both feet 4451957259267 9102 Active 2023 Lang Chapman DPM [address], [place], [address] , [facility] 4 17:06:37 Bilateral plantar fasciitis 6479007993112 9108 Active 2023 Lang Chapman DPM [address], [place], [address] , [facility] [employer] 4 17:06:43 Calcaneal spur 14180761 Active 2023 Lang Chapman DPM [address], [place], [address] , [facility] 4 17:09:04 Calcaneal spur 34978016 Active 2023 Lang Chapman DPM [address], [place], [address] , [facility] [employer] [facility] [employer] 4 17:09:08 Notes:HERNIATED DISC Problem Notes None recorded. Procedures Surgical History Date Name Laterality Status Provider Name and Address Organization Details Recorded Time 05/24/20 24 Plantar Fascia Injection Right Foot completed Lang Chapman DPM [address], [place], [address], [facility] 05/24/2024 14:35:04 01/26/20 24 Plantar Fascia Injection Left Foot completed Lang Chapman DPM [address], [place], [address], [facility] 01/26/2024 17:12:59 01/26/20 24 Plantar Fascia Injection Right Foot completed Lang Chapman DPM [address], [place], [address], [facility] 01/26/2024 17:12:57 Rotator cuff surgery completed TREMAINE Guerrero Eddi [facility] 03/13/2023 10:26:32 Carpal tunnel surgery completed TREMAINE Guerrero [facility] 03/13/2023 10:26:40 laparoscopy completed TREMAINE Guerrero Eddi [facility] 03/13/2023 10:26:51 partial hysterectomy completed TREMAINE Guerrero [facility] 03/13/2023 10:27:00 Tubal Ligation completed TREMAINE Guerrero [facility] 03/13/2023 10:27:09 Imaging Results None recorded. Procedure Notes None recorded. Medical Equipment None [...] BY MOUTH TWICE DAILY NEEDED FOR NAUSEA active Not Available Not Available No t Available prednisone 20 mg tablet 05/15 completed [...] completed Not Available Not Available Not Available meclizine 25 mg tablet TAKE 1 TABLET BY MOUTH THREE TIMES DAILY FOR 7 DAYS NEEDED FOR DIZZINESS OR VERTIGO active Not Available Not Available No t Available baclofen 10 mg tablet 06/26 completed [...] DOSES MAY BE TAKEN IN 24 HOURS. 07/01 /2024 completed Not Available Not Available Not Available [...] Updated DateTime 4 152.4 cm 32 kg/m2 39332.1 5 g 96.6 [degF] 72 /min 116 mm[Hg] 72 mm[Hg] Anisha Diggs RN [place] [employer] [facility] 4 16:10:02 Date Recorded Body height Body mass index (BMI) Body weight Body temperature Heart rate Systolic blood pressure Diastolic blood pressure Provider Name and Address Organization Details Last Updated DateTime 4 152.4 cm 32.2 kg/m2 90740.7 4 g 98.2 [degF] 80 /min 132 mm[Hg] 88 mm[Hg] Anisha Diggs RN [facility] [employer] [facility] 4 16:07:21 Date Recorded Body mass index (BMI) Body weight Provider Name and Address Organization Details Last Updated DateTime 01/26/2024 31.2 kg/m2 22300.78 g Angelina Vicki [facility] I L [facility] 01/26/2024 16:57:38 Date Recorded Body height Heart rate Systolic blood pressure Diastolic blood pressure Provider Name and Address Organization Details Last Updated DateTime 01/26/2024 152.4 cm 73 /min 133 mm[Hg] 91 mm[Hg] CROW Fernandez [facility] 01/26/2024 16:15:08 Date Recorded Body height Body mass index (BMI) Body weight Body temperature Heart rate Systolic blood pressure Diastolic blood pressure Provider Name and Address Organization Details Last Updated DateTime 4 152.4 cm 32 kg/m2 04357.1 5 g 98.2 [degF] 84 /min 138 mm[Hg] 78 mm[Hg] Praveen Patrick RN [facility] 4 11:45:28 Date Recorded Body height Body mass index (BMI) Body weight Heart rate Respiratory rate Oxygen saturation Oxygen saturation in Arterial blood by Pulse oximetry Systolic blood pressure Diastolic blood pressure Provider Name and Address Organization Details Last Updated DateTime 4 152.4 cm 32 kg/m2 50002.1 5 g 75 /min 14 /min 98 % 98 % 111 mm[Hg] 77 mm[Hg] Rachael Renteria [facility] 12:34:27 Social History Question Answer Notes LastModified by Organizat ion Details LastModified Time Tobacco Smoking Status Former Smoker Quit May 2023 Praveen Patrick RN [facility], [facility] [employer] [facility] 10/29/2023 09:10:33 What Is Your Level Of Caffeine Consumption? Moderate Information not available 03/13/2023 How Much Tobacco Do You Smoke? 1 PPD Information not available 03/13/2023 Sex: Unknown Functional Status Question Answer Note LastModified by Organizat ion Details LastModified Time Do you use any illicit or recreational drugs? No Information not available 03/13/2023 What is your level of alcohol consumption? None Information not available 03/13/2023 Mental Status None recorded. Family History Relationship [...] SNOMED-CT Code Diagnosis ICD10 Code Diagnosis Note [id number] TYSON Fuentes [facility] Primary [facility] [address] [place] [address] 03/13/2023 10:10:15 03/13/2023 11:05:57 Migraine 65430928 G43.909 Has been a new issue for the last 5 months-unt reatedEnco uraged increase fluid/elec trolyte replacemen tWill trial sumatripta nf/u 1 month Essential hypertension 79634831 I10 Was being treated with lisinopril -emily cough notedWill switch to amlodipine f/u 1 month [id number] Mary Ellen Costello MD [facility] Primary [facility] [address] [place] [address] 04/11/2023 10:50:59 04/11/2023 12:03:51 Migraine 57346127 G43.909 04-11-23 Has used phillip with mild relief, only tried 1 tabEncoura ged to try using 2 tabs with next migraine and report relief 03-13-23 Has been a new issue for the last 5 months-unt reatedEnco uraged increase fluid/elec trolyte replacemen tWill trial sumatripta nf/u 1 month Essential hypertension 93293361 I10 04-11-23 Has been taking amlodipine as ordered-AC E cough resolvedNo ASE noted with amlodipine bp 132/80 todayPt opts to f/u as needed 03-13-23 Was being treated with lisinopril -emily cough notedWill switch to amlodipine f/u 1 month Left temporomandibular joint disorder 8629230029 9640439 M26.602 Believe this may be part of the cause for her migrainesA lready has steroids for autoimmune disease-de clinannacocherelle trial cyclobenza eric [id number] Mary Ellen Costello MD [facility] Primary Care [facility] [address] [facility] [address] [place] [address] 06/06/2023 11:40:52 06/06/2023 12:06:58 [id number] Mary Ellen Costello MD [facility] Primary Care [facility] [address] [facility] [address] [place] [address] 06/26/2023 16:15:51 06/26/2023 16:41:28 Standard chest X-ray abnormal 007309081 R93.89 Was told cxr showed pneumonia vs pulmonary fibrosisHa s h/o autoimmune disease on immune mediatorsH as 40 pack year h/o smokingNee ds CT chest for further evaluation Renewal of prescription 124979750 Z76.0 has vaginitis from abx [id number] Mary Ellen Costello MD [facility] Primary Care [facility] [address] [facility] [address] [place] [address] 09/23/2023 15:14:43 09/23/2023 15:53:11 Syncope 124838675 R55 -notes episode of syncope, ptosis on 09/02, taken by ambulance, stroke ruled out, was told to f/u with pcp/neuro- noted some dizziness for approx, believes she fainted again but she was already laying down watching television , noted the dog alerting him-noted flashing/f loaters to vision starting on 09/15-unabl e to get into neurologis t (Dr. Ninoska's office) until November 12-[facility] paperwork to be filled out Mass of neck 134710197 R 22.1 -incidenta l finding noted while being in the hospital-f inding it hard to swall-smal l mass noted to L neck-US ordered [id number] Mary Ellen Costello MD [facility] Care [address] [place] [address] 10/29/2023 09:06:42 10/29/2023 09:42:22 Multinodular goiter 468332315 E04.2 recommend repeat US in 2 years Dysphagia 74205935 R13.1 0 ?silent refluxGI referralom eprazole 40 mg daily x 90 daysreview ed s/s that warrant urgent/wilmer rgent eval in meantime Cervical lymphadenopathy 030004875 R59.[address] neck with contrast Pain in throat 918103352 R07.0 may be due to silent reflux, but will treat for infection given lymphadeno pathycall/ return if no improvemen t in 1 week reviewed s/s that warrant urgent/wilmer rgent eval in meantime [id number] Mary Ellen Costello MD [facility] Care [address] [place] [address] 11/13/2023 15:59:57 11/13/2023 16:43:01 Syncope 510026678 R55 11-13-23-sh e was unable to get [...] neurologis t (Dr. Xiao's office) until November 12-[facility] paperwork to be filled out Dysuria 64600022 R30.0 -noting dysuriac, blood-urin e dip obtained [id number] TYSON Fuentes [facility] Primary Care Elisa wharton [address] [facility] [address] [place] [address] 12/25/2023 15:58:41 12/25/2023 16:33:23 Syncope 181091059 R55 12-25-23-ca rdiology f/u yesterday- arrhythmia noted-neur [...] neurologis t (Dr. Xiao's office) until November 12-[facility] paperwork to be filled out [id number] Lang Chapman DPM [facility] Cheikh Solis [address] [place] [address] 01/26/2024 16:07:55 01/27/2024 11:24:51 Pain in both feet 5245284458 4379739 M79.671 M79.672 Bilateral plantar fasciitis 8573778190 2061683 M72.2 discussed shoe gearRecomm end orthoticsS tretching and icing instructio ns reviewedBi lateral heel injections today monitor for signs of infection at present seek medical attention immediatel yFollow-up in 1 month if continues be problemati c at that time physical therapy Calcaneal spur 22548767 M77.32 [id number] TYSON Mehta [facility] Elisa wharton [address] [facility] [address] [place] [address] 02/11/2024 11:40:27 02/11/2024 14:37:18 Essential hypertension 00625222 I10 138/78. Adult heal th examination 273657653 Z00.00 Discussed healthy eating and exercise.D iscussed routine eye and dental exams.Disc ussed continuing care with specialist as scheduled. Screening for malignant neoplasm of breast 105328800 Z12.39 Hepatitis C screening 41 8534282 Z11.59 Body mass index 30+ - obesity 244747848 Z68.32 BMI 32. [id number] Lang Chapman DPM [facility] Cheikh Solis [address] [place] [address] 05/24/2024 12:16:46 05/25/2024 11:23:58 Bilateral plantar fasciitis 9494341101 6333987 M72.2 resolved left heelcontin ues right heeldiscus sed shoe gearRecomm end orthotics - Power[employer] pro techrepeat injection right heel todayStret yojana and icing instructio ns reviewedst retching exercises reviewedfo llow-up [...] Perales Member ID Guarantor Name 11/13/2023 1 [employer] [id number] Elvira Morataya [id number] Elvira Morataya 12/25/2023 1 [employer] [id number] Elvira Morataya [id number] Elvira Morataya 01/26/2024 1 [employer] [id number] Elvira Morataya [id number] Elvira Morataya 02/11/2024 1 [employer] [id number] Elvira Morataya [id number] Elvira Morataya 05/24/2024 1 [employer] [id number] Elvira Morataya [id number] Elvira Morataya Notes Date Note Type Note Provider Name and Address Organization Details Recorded Time 11/13/2023 text/html pt is here for syncope and dysuria f/u Rita Rowland, [employer]ER-C [address], [place], [address], [employer] 11/19/2023 08:30:57 12/25/2023 text/html pt is here for syncope f/u Rita Rowland, [employer]C [address], [place], [address], [employer] 12/25/2023 16:31:45 01/26/2024 text/html . Patient is a 53-year-old female who presents the office with complaints of pain to both feet. Patient states she has a 9/10 with walking and standing. Patient states she can not walk at all without pain. Patient describes the pain as throbbing aching and constant in nature. Patient states that she has been treated by another advertising statistical clerk for this which she gets injections and states that the pain resolves. Patient denies any other complaints. Lang Chapman DPM [address], [place], [address], [employer] 01/26/2024 17:13:37 02/11/2024 text/html Patient is a [...] breath, nausea vomiting and diarrhea. labs-orderedmammogr am-orderedcolonosco -2019.....Gallardo unsure when to repeat.Flu-declines Covid-declinesTdap- any pharmacy.LAURI TownsendC [address], [place], [address], [employer] 02/11/2024 12:13:05 05/24/2024 text/html . Patient is [...] does feel better. Lang Chapman DPM [address] [address], [place], [address], [facility] 05/24/2024 14:36:09 OBGyn Episode No OBEpisode recorded.
--- OUTSIDE RECORDS SUMMARY | 2024-12-22 07:42 | XMS_ITS | Clinical Summary ---
Author Organization [facility] Address [address] [place] [address] Care Team Providers Care Network Design Architect Name Role Phone Bolivar Rowland NP Primary Care Provider [phone] Allergies No known active allergies Medications hyoscyamine [...] on file Legal Sex Female 3:06 PM FINISHING WIRE SAWYER Gender Identity Not on file Sexual Orientation Not on file Obstetrics History Last Filed Vital Signs Vital Sign Reading Time Taken Comments Blood Pressure 98/86 09/02/2023 12:30 PM FINISHING WIRE SAWYER Pulse 73 09/02/2023 12:30 PM FINISHING WIRE SAWYER Temperature 36.1 C (97 F) 09/02/2023 9:30 AM FINISHING WIRE SAWYER Respiratory Rate 19 09/02/2023 12:30 PM FINISHING WIRE SAWYER Oxygen Saturation 99% 09/02/2023 12:30 PM FINISHING WIRE SAWYER Inhaled Oxygen Concentration - - Weight 72.6 kg (160 lb) 09/02/2023 9:30 AM FINISHING WIRE SAWYER Height 152.4 cm (5') 09/02/2023 9:30 AM FINISHING WIRE SAWYER Body Mass Index 31.25 09/02/2023 9:30 AM FINISHING WIRE SAWYER Plan of Treatment Health Maintenance Due Date Last Done Comments Breast Cancer Screening-Mammogram 1969 Depression Screening 1969 Hepatitis C Screening 1969 Hepatitis B Screening 1987 Regular Well Visit/Exam 18-64 1987 Pneumococcal vaccine <65 (1 of 2 - PCV) 1988 Zoster Vaccine (1 of 2) 1988 DTaP/Tdap/Td Vaccine (1 - Tdap) 12/09/2012 3 Influenza Vaccine (Season Ended) 2025 Colon Cancer Screening-Colonoscopy 04/14/20292018 Colon Cancer Screening-CT [...] Gender: Female Attending MD: Elvia Holliday Room: [facility] ENDOSCOPY ROOM 5 Note Status: Finalized [...] The scope was passed under direct vision.The [id number] endoscope was introduced throughthe anus and advanced to the cecum, identified by appendiceal orifice and ileocecal valve. The colonoscopy was performed without difficulty. The patient tolerated the procedure well. The quality of the bowel preparation was evaluated using the BBPS ([place] Bowel Preparation Scale) with scores of:Right Colon [...] On: 04/14/2019 8:54 AM Recognized by the [place] [employer] Gastrointestinal End[employer] for promoting quality in endoscopy Emi Pinedo MD ENDOSCOPY PROCEDUR ES Final Result from Last 3 Months or Most Recently Relevant to Health Maintenance Insurance [facility] [place] [id number] Advance Directives For more information, please contact: [phone] * Full Code (Latest Code Status on File) Date Activated Date Inactivated Comments 04/14/2019 8:23 AM 04/14/2019 2:43 PM Care Teams Network Design Architect Relationship Specialty Start Date End Date Bolivar Rowland NP [address] [place] [address] PCP - General Family Medicine 12/12/23
--- OUTSIDE RECORDS SUMMARY | 2024-12-22 07:42 | XMS_ITS | Continuity of Care Document ---
Author Organization [facility] Address [address] [place] [address] [address] [place] [address] Phone Care Team Providers Care Clinical Research Spec Name Role Phone Marielena Ford Unavailable Unavailable Advance Directives Directive Yes / No Effective Date File Name No Information Encounters Encounter Description Practice Location Reason(s) For Visit Diagnoses Date Provider Providers Copied on Encounter [facility], [id number] [place] [address] [address], [place], [place], [id number], [place] tel:[phone] [facility] [place] No Information [address] [facility] , [address], [place], [address], [place]. tel:[phone] Family History Family Member Type Diagnosis Age [...]
--- OUTSIDE RECORDS SUMMARY | 2024-12-22 07:42 | XMS_ITS | Clinical Summary ---
Author Organization [facility] Address [address] [place] [address] Care Team Providers Care Reaming Machine Operator Name Role Phone Bolivar Rowland BIRDIE-LENS GRINDER ROUGH Primary Care Provider [phone] Source Comments [facility],non-owned Affiliates and Associated Physician Practices is amultiple site organization consisting of ambulatory clinics and hospital sitesin [place], [place], [place] and [place]. This disclosure is being madepursuant to the Care Everywhere program and may not contain all information available regarding this patient. Last updated 18.[facility] Allergies No known active allergies Medications * This document contains information received from the source organization and may not represent a complete record from that organization. * Be aware that medications may not be up to date on this document. Alwaysverify current medications with the patient. Multiple Vitamin (MULTIVITAMIN+ PO) Take 2 tablets by mouth once daily Active amLODIPine (Norvasc) 5 MG tablet Take 2 (two) tablets by mouth every morning 08/15/19 24 Active leflunomide (Arava) 20 MG tablet Take 1 (one) tablet by mouth once daily 09/17/19 23 Active predniSONE (Deltasone) 5 MG tablet as needed 11/07/19 24 Active BIOTIN PO Active FOLIC ACID PO Active cyanocobalamin (Vitamin B-12) 1000 MCG tablet Take 1 (one) tablet by mouth once daily Active Pumpkin Seed-Soy Germ (AZO BLADDER CONTROL/GO-LESS PO) Take 1 capsule by mouth 2 times daily as needed Active certolizumab pegol (Cimzia) injection Inject subcutaneously every 28 days Active nortriptyline (Pamelor) 50 MG capsuleIndicati ons:Chronic tension-type headache, intractable Take 1 (one) capsule by mouth at bedtime 30 capsule 5 12/25/19 24 Active metoprolol succinate XL 24hr (Toprol XL) 25 MG tabletIndicatio ns:HTN (hypertension), benign Take 1 (one) tablet by mouth once daily 90 tablet 4 03/25/20 24 Active Active Problems Problem Noted Date Diagnosed [...] Have not drank in over a year Comments Unknown Sex and Gender Information Value Date Recorded Sex Assigned at Female 03/24/2024 1:05 AM CDT Legal Sex Female 1:56 PM CDT Gender Identity Female 03/24/2024 1:05 AM [...] SCREENING 1969 MAMMOGRAM 1969 PAP SMEAR 1969 DTAP/TDAP/TD VACCINES (1 - Tdap) 1988 HEPATITIS B VACCINE (1 of 3 - 19+ 3-dose series) 1988 LUNG CANCER SCREENING 2019 PNEUMOCOCCAL VACCINE 50+ (1 of 1 - PCV) 2019 ZOSTER VACCINE (1 of 2) 2019 COVID-19 VACCINE (1 - 2023-2 5 season) 2024 DEPRESSION SCREENING 07/28/2024 SCREENING FOR DIABETES 10/23/2024 10/23/2021 INFLUENZA VACCINE (Season Ended) 2025 LIPID TESTING 11/26/2028 11/27/2023, 11/23/2020, 09/07/2013 COLONOSCOPY - COLON CA SCREENING 04/14/2029 04/14/2019 Colorectal Cancer Screening 04/14/2029 HEPATITIS C SCREENING Completed 12/11/2020 , 12/11/2020, 12/11/2020 HIV SCREENING Completed 10/23/2021 HIB VACCINE Aged Out No longer eligi ble based on patient's age to complete this topic HPV VACCINE Aged Out No longer eligi ble based on patient's age to complete this topic MENINGOCOCCAL (Group B) VACCINE SHARED DECISION-MAKING Aged Out No longer eligible based on patient's age to complete this topic MENINGOCOCCAL GROUPS A/C/Y/W VACCINE Aged Out No longer eligible b ased on patient's age to complete this topic Procedures Procedure Name Priority Date/Time Associated Diagnosis Comments LIPID PROFILE Routine 11/27/2023 10:53 AM CDT Atherosclerosis of aorta COMPREHENSIVE METABOLIC PANEL STAT 10/23/2021 12:38 PM [...] Resulting Agency Comment [facility] [address] [facility] [id number] Sonia Kinney MD LAB - CHEMISTRY ORDERABLE S Final Result [facility] INSURANCE BILL [address] [place] [address] * HIV-1 HIV-2 ANTIBODY + HIV P24 AG PANEL (10/23/2021 12:38 PM CDT) Pathologist [facility] HIV1/2 Ab + P24 Ag Non Reactive Non Reactive 10/23/2021 1:27 PM CDT [facility] Blood BLOOD SPECIMEN / Unknown Venipuncture / Unknown 10/23/2021 12:38 PM CDT 10/23/2021 12:38 PM CDT Narrative [facility] - 10/23/2021 1:27 PM CDT No Laboratory evidence of HIV infection. Diallo Cochran MD LAB - CHEMISTRY ORDERABLES Zena l Result [facility] [address] [place] [address] * COMPREHENSIVE METABOLIC PANEL (10/23/2021 12:38 PM CDT) Pathologist [facility] Glucose 87 70 - 105 mg/dL 10/23/2021 1:02 PM CDT [facility] Sodium 144 136 - 145 mmol/L 10/23/2021 1:02 PM CDT [facility] Potassium 3.9 3.5 - 5.1 mmol/L 10/23/2021 1:02 PM CDT [facility] Chloride 106 98 - 107 mmol/L 10/23/2021 1:02 PM CDT [facility] CO2 26 23 - 31 mmol/L 10/23/2021 1:02 PM CDT [facility] Calcium 10.3 8.4 - 10.4 mg/dL 10/23/2021 1:02 PM CDT [facility] Anion Gap 12 8 - 18 mmol/L 10/23/2021 1:02 PM CDT [facility] BUN 10 9.8 - 20.1 mg/dL 10/23/2021 1:02 PM CDT [facility] Creatinine 0.72 0.57 - 1.11 mg/dL 10/23/2021 1:02 PM CDT [facility] Alkaline Phosphatase 71 40 - 150 U/L 10/23/2021 1:02 PM CDT [facility] ALT 14 0 - 61 U/L 10/23/2021 1:02 PM CDT [facility] AST 18 5 - 34 U/L 10/23/2021 1:02 PM CDT [facility] Protein Total 8.3 6.4 - 8.3 [...] MDRD calculation. Please note Reference Range change. us Debbie Malin PA-C LAB - CHEMISTRY ORDERABLES Final Result [facility] [address] [place] [address] from Last 3 Months or Most Recently Relevant to Health Maintenance Insurance AETNA AET Advance Directives * Full Code (Latest Code Status on File) Date Activated Date Inactivated Comments 09/20/2019 11:45 PM 09/22/2019 1:39 PM * Full Code Date Activated Date Inactivated Comments 09/20/2019 9:41 PM 09/20/2019 11:45 PM Care Teams Reaming Machine Operator Relationship Specialty Start Date End Date Bolivar Rowland APRN-ESTRELLA [address] [place] [address] PCP - General 11/13/23
--- NOTE | 2024-12-22 08:06 | ECG_ITS ---
Test Date: 2024-12-22 09:10:02 Measurements Intervals [place] Rate: 98 P: -24 AR: 145 QRS: -58 QRSD: 94 T: -3 QT: 326 QTc: 418 Interpretive Statements SINUS RHYTHM INCOMPLETE RIGHT BUNDLE BRANCH BLOCK [90+ ms QRS DURATION, TERMINAL R IN V1/V2, 40+ ms S IN I/aVL/V4/V5/V6] LEFT ANTERIOR FASCICULAR BLOCK [QRS AXIS <= -45, QR IN I, RS IN II] SEPTAL MYOCARDIAL INFARCTION , OF INDETERMINATE AGE [40+ ms Q WAVE IN V1/V2] NONSPECIFC ST AND T WAVE ABNORMALITY No previous ECG available for comparison Electronically Signed On 12-22-2024 16:40:54 CDT by Terrell Garcia M.D.
--- OUTSIDE RECORDS SUMMARY | 2024-12-22 08:19 | XMS_ITS | Referral Summary ---
Author Organization [facility] Address [address] [place] [address] Care Team Providers Care Poultry Buyer Name Role Phone Bolivar Rowland NP Primary Care Provider [phone] Allergies No known active allergies Medications hyoscyamine [...] on file Legal Sex Female 3:06 PM PATENT LAW SPECIALIST Gender Identity Not on file Sexual Orientation Not on file Last Filed Vital Signs Vital Sign Reading Time Taken Comments Blood Pressure 98/86 09/02/2023 12:30 PM PATENT LAW SPECIALIST Pulse 73 09/02/2023 12:30 PM PATENT LAW SPECIALIST Temperature 36.1 C (97 F) 09/02/2023 9:30 AM PATENT LAW SPECIALIST Respiratory Rate 19 09/02/2023 12:30 PM PATENT LAW SPECIALIST Oxygen Saturation 99% 09/02/2023 12:30 PM PATENT LAW SPECIALIST Inhaled Oxygen Concentration - - Weight 72.6 kg (160 lb) 09/02/2023 9:30 AM PATENT LAW SPECIALIST Height 152.4 cm (5') 09/02/2023 9:30 AM PATENT LAW SPECIALIST Body Mass Index 31.25 09/02/2023 9:30 AM PATENT LAW SPECIALIST Plan of Treatment Not on file Procedures [...] Gender: Female Attending MD: Elvia Holliday Room: [facility] ENDOSCOPY ROOM 5 Note Status: Finalized Procedure: [...] scope was passed under direct vision.The [id number] endoscope was introduced throughthe anus and advanced to the cecum, identified by appendiceal orifice and ileocecal valve. The colonoscopy was performed without difficulty. The patient tolerated the procedure well. The quality of the bowel preparation was evaluated using the BBPS ([place] Bowel Preparation Scale) with scores of:Right Colon [...] On: 04/14/2019 8:54 AM Recognized by the [place] [employer] Gastrointestinal Endoscopy for promoting quality in endoscopy Emi Pinedo MD ENDOSCOPY PROCEDUR ES Final Result from Last 3 Months or Most Recently Relevant to Health Maintenance Insurance [facility] [place] [id number] Advance Directives For more information, please contact: [phone] * Full Code (Latest Code Status on File) Date Activated Date Inactivated Comments 04/14/2019 8:23 AM 04/14/2019 2:43 PM Care Teams Poultry Buyer Relationship Specialty Start Date End Date Bolivar Rowland NP [address] [place] [address] PCP - General Family Medicine 12/12/23
--- OUTSIDE RECORDS SUMMARY | 2024-12-22 08:19 | XMS_ITS | Clinical Summary ---
Author Organization [facility] Address [address] [place] [address] Care Team Providers Care Clothes Designer Name Role Phone Bolivar Rowland NP Primary Care Provider [phone] Allergies No known active allergies Medications hyoscyamine [...] on file Legal Sex Female 3:06 PM PARTNERSHIP MARKETING MANAGER Gender Identity Not on file Sexual Orientation Not on file Obstetrics History Last Filed Vital Signs Vital Sign Reading Time Taken Comments Blood Pressure 98/86 09/02/2023 12:30 PM PARTNERSHIP MARKETING MANAGER Pulse 73 09/02/2023 12:30 PM PARTNERSHIP MARKETING MANAGER Temperature 36.1 C (97 F) 09/02/2023 9:30 AM PARTNERSHIP MARKETING MANAGER Respiratory Rate 19 09/02/2023 12:30 PM PARTNERSHIP MARKETING MANAGER Oxygen Saturation 99% 09/02/2023 12:30 PM PARTNERSHIP MARKETING MANAGER Inhaled Oxygen Concentration - - Weight 72.6 kg (160 lb) 09/02/2023 9:30 AM PARTNERSHIP MARKETING MANAGER Height 152.4 cm (5') 09/02/2023 9:30 AM PARTNERSHIP MARKETING MANAGER Body Mass Index 31.25 09/02/2023 9:30 AM PARTNERSHIP MARKETING MANAGER Plan of Treatment Health Maintenance Due Date [...] Gender: Female Attending MD: Elvia Holliday Room: [facility] ENDOSCOPY ROOM 5 Note Status: [...] The scope was passed under direct vision.The [id number] endoscope was introduced throughthe anus and advanced to the cecum, identified by appendiceal orifice and ileocecal valve. The colonoscopy was performed without difficulty. The patient tolerated the procedure well. The quality of the bowel preparation was evaluated using the BBPS ([place] Bowel Preparation Scale) with scores of:Right Colon [...] On: 04/14/2019 8:54 AM Recognized by the [place] [employer] Gastrointestinal Endoscopy for promoting quality in endoscopy Emi Pinedo MD ENDOSCOPY PROCEDUR ES Final Result from Last 3 Months or Most Recently Relevant to Health Maintenance Insurance [facility] [place] [id number] Advance Directives For more information, please contact: [phone] * Full Code (Latest Code Status on File) Date Activated Date Inactivated Comments 04/14/2019 8:23 AM 04/14/2019 2:43 PM Care Teams Clothes Designer Relationship Specialty Start Date End Date Bolivar Rowland NP [address] [place] [address] PCP - General Family Medicine 12/12/23
--- OUTSIDE RECORDS SUMMARY | 2024-12-22 08:20 | XMS_ITS | Clinical Summary ---
Author Organization [facility] Address [address] [place] [address] Care Team Providers Care Ediphone Operator Name Role Phone Bolivar Rowland BIRDIE-KNIT GOODS WASHER Primary Care Provider [phone] Source Comments [facility],non-owned Affiliates and Associated Physician Practices is amultiple site organization consisting of ambulatory clinics and hospital sitesin [place], [place], [place] and [place]. This disclosure is being madepursuant to the Care Everywhere program and may not contain all information available regarding this patient. Last updated 18.[facility] Allergies No known active allergies Medications * [...] Resulting Agency Comment [facility] performed at: [facility] [address] [facility] [id number] Sonia Kinney MD LAB - CHEMISTRY ORDERABLE S Final Result [facility] INSURANCE BILL [address] [place] [address] * HIV-1 HIV-2 ANTIBODY + HIV P24 AG PANEL (10/23/2021 12:38 PM CDT) Pathologist [facility] HIV1/2 Ab + P24 Ag Non Reactive Non Reactive 10/23/2021 1:27 PM CDT [facility] Blood BLOOD SPECIMEN / Unknown Venipuncture / Unknown 10/23/2021 12:38 PM CDT 10/23/2021 12:38 PM CDT Narrative [facility] - 10/23/2021 1:27 PM CDT No Laboratory evidence of HIV infection. Diallo Cochran MD LAB - CHEMISTRY ORDERABLES Zena l Result [facility] [address] [place] [address] * COMPREHENSIVE METABOLIC PANEL (10/23/2021 12:38 PM CDT) Pathologist [facility] Glucose 87 70 - 105 mg/dL 10/23/2021 [...] - CHEMISTRY ORDERABLES Final Result [facility] [address] [place] [address] from Last 3 Months or Most Recently Relevant to Health Maintenance Insurance AETNA AET Advance Directives * Full Code (Latest Code Status on File) Date Activated Date Inactivated Comments 09/20/2019 11:45 PM 09/22/2019 1:39 PM * Full Code Date Activated Date Inactivated Comments 09/20/2019 9:41 PM 09/20/2019 11:45 PM Care Teams Ediphone Operator Relationship Specialty Start Date End Date Bolivar Rowland APRN-ESTRELLA [address] [place] [address] PCP - General 11/13/23
--- OUTSIDE RECORDS SUMMARY | 2024-12-22 08:20 | XMS_ITS | Continuity of Care Document ---
Author Organization [facility] Address [address] [place] [address] [address] [place] [address] Phone Care Team Providers Care Customer Servicer Name Role Phone Marielena Ford Unavailable Unavailable Advance Directives Directive Yes / No Effective Date File Name No Information Encounters Encounter Description Practice Location Reason(s) For Visit Diagnoses Date Provider Providers Copied on Encounter [facility], [address] [place] [address] [address], [place], [place], [id number], [place] tel:[phone] [facility] [place] No Information [address] [facility] , [address], [place], [address], [place]. tel:[phone] Family History Family Member Type Diagnosis Age At Onset No Information Payers Payer name Insurance type Covered democrat ID Authoriza tion(s) No Information Social History [...]
[2024-12-22] MEDS: IPRATROPIUM 0.5 MG/ALBUTEROL SULFATE 2.5 MG AMPUL.NEB 3 ML INHALATION (08:27)
[2024-12-22 08:35] LABS: Basophils Percent Auto 0.1 % (0.2-1.2); Hematocrit 39.3 % (37.0-47.0); Hemoglobin 12.8 g/dL (12.0-15.0); Immature Granulocyte Absolute 0.09 K/mm3 (0.00-0.031); Immature Granulocyte Percent A 0.6 % (0-0.5); Lymphocytes Absolute Auto 0.78 K/mm3 (0.9-3.2); Lymphocytes Percent Auto 5.4 % (18.3-44.2); Mean Corpuscular HGB Conc 32.6 g/dl (32-36); Mean Corpuscular Hemoglobin 33.2 pg (26-34); Mean Corpuscular Volume 101.8 fl (80-100); Mean Platelet Volume 10.3 fl (7.4-10.4); Monocytes Percent Auto 6.8 % (2.6-8.5); Neutrophils Absolute Auto 12.5 K/mm3 (1.3-6.7); Neutrophils Percent Auto 87.1 % (45.5-73.1); Platelet Count Result 290 k/mm3 (150-375); Red Blood Count 3.86 M/mm3 (4.2-5.4); Red Cell Distribution Width 13.4 % (11.5-14.5); White Blood Count 14.4 K/mm3 (4.5-10.0)
[2024-12-22 08:38] LABS: Add Urine Microscopic? YES; Appearance Urine Clear (Clear); Bacteria Urine 2+ /hpf; Bilirubin Urine Negative (Negative); Blood Urine Trace (Negative); Color Urine Yellow (Yellow); Glucose Urine UA Negative (Negative); Ketones Urine Negative (Negative); Leukocyte Esterase Ur 3+ LEU/UL (Negative); Nitrate Urine Negative (Negative); Non Pathogenic Casts 0-2; Protein Urine Trace mg/dL (Negative); RBC Urine 0-2 /hpf (0-2); Specific Grav Ur 1.007 (1.001-1.035); Squamous Epithelial Cell Urine None Seen /hpf (Few); Urobilinogen Urine 0.2 mg/dL (<2.0); WBC Urine 51-100 /hpf (0-3); pH Urine 6.5 (5.0-9.0)
[2024-12-22 08:47] LABS: Alanine Aminotransferase 20 U/L (6-35); Albumin Level 4.2 g/dL (3.5-5.1); Alkaline Phosphatase 81 U/L (38-126); Anion Gap 7 mmol/L (4-12); Aspartate Amino Transferase 28 U/L (14-36); Bilirubin,Total 0.6 mg/dL (0.2-1.3); Blood Urea Nitrogen 9 mg/dL (7-17); Carbon Dioxide 26 mmol/L (22-30); Chloride 104 mmol/L (98-107); Estimated CRCL calculation 50 ml/min; Estimated Glomerular Filt Rate > 60; Glucose 131 mg/dL (65-110); Lipase 30 U/L (23-300); Potassium 3.6 mmol/L (3.4-5.0); Sodium 137 mmol/L (137-145)
[2024-12-22 08:56] LABS: Influenza A QL RT-PCR Negative (Negative); Influenza B QL RT-PCR Negative (Negative); RSV RNA, RT-PCR Negative (Negative); SARS-CoV-2 RNA PCR Negative (Negative)
[2024-12-22 08:58] LABS: NT Pro B Type Natriuretic Pept 663 pg/mL (19.9-100); Troponin I < 0.012 ng/mL (0.000-0.034)
[2024-12-22] MEDS: KETOROLAC 15 MG/ML VIAL (*BKC) IV PUSH (09:47)
--- NOTE | 2024-12-22 10:26 | ED_ITS ---
HPI - General Adult General Chief complaint: Upper Respiratory Infection Stated complaint: covid and PNA Time Seen by Provider: 12/22/24 07:58 History of Present Illness HPI narrative: Patient 54-year-old female who presents emergency department chief complaint of cough and congestion patient states she had symptoms for the last 1-2 days but reports that she is concerned that she may have pneumonia or have COVID or flu. The patient states she has body aches reports she has a headache she also reports she recently had a urinary tract infection finished course of antibiotics and is concerned that she may still have a UTI. Related Data Home Medications ?Medication ?Instructions ?Recorded ?Confirmed ?Last Taken ?Type leflunomide 20 mg tablet 20 mg PO DAILY 12/14/20 08/14/23 Unknown History azathioprine 50 mg tablet 50 mg PO DAILY 08/14/23 08/14/23 Unknown History certolizumab pegol 200 mg/mL 200 mg subcut ONCE 09/30/24 09/30/24 Unknown History subcutaneous syringe kit (Cimzia) Allergies Allergy/AdvReac Type Severity Reaction Status Date / Time codeine AdvReac Intermediate GI UPSET Verified 09/30/24 14:56 Review of Systems 2 Review of Systems: A 10 system review of systems was completed on the patient and is negative except for what is stated in the HPI. Nursing and ancillary documentation was reviewed. PMFSH Past Medical History Medical History History of vaginal delivery x 3 History of colon polyps Rheumatoid arthritis Psoriatic arthritis Surgical History Surgical History History of decompression of ulnar nerve Bilateral 2005 History of carpal tunnel surgery bilateral 2005 [place] teeth removed 1998 History of tubal ligation 1990 History of laparoscopy 1196 1996 History of colonoscopy with polypectomy 2018 History of dilation and curettage Family History Family History Father Alcoholism Lung cancer Brain cancer Hypertension Cerebrovascular accident Mother Hypertension Sibling Alcoholism Grandparent Stomach cancer Skin cancer Malignant neoplasm of prostate Hypertension Social History Social History Smoking status: Former smoker Smoking end date: 11/17/23 Alcohol intake: never Substance use: never Substance use type: does not use Do You Feel Safe in your Home?: Yes Lack of Transportation: No Lack of Food: Never True Current Housing: I Have Housing Concerned About Future Housing: No Difficulty Paying Gas/Electric Bills: No Difficulty Paying for Meds: No Currently Unemployed: No Education: Associate Degree Difficulty w/ Childcare or Family Care: No Living arrangements: with family Spiritual care concerns: No Exam 2 Narrative: GENERAL: Well-appearing, well-nourished, and in no acute distress. HEAD: Normocephalic, atraumatic. EYES: PERRLA and EOMI. ENT: Nares clear, no rhinorrhea or epistaxis. Mucous membranes moist. NECK: Supple. CHEST: Clear to auscultation. No respiratory distress. HEART: Regular rate and rhythm. No murmur heard. Normal peripheral pulses. ABDOMEN: Soft, nontender, nondistended, normal active bowel sounds. EXTREMITIES: Normal range of motion. No edema. SKIN: Warm, dry, no rash. NEURO: No focal deficits. Alert and oriented x3. PSYCH: Normal mood and affect. Course Vital Signs Vital signs: Vital Signs Temperature 37.7 C H 12/22/24 07:53 Pulse Rate 95 12/22/24 07:53 Respiratory Rate 16 12/22/24 07:53 Blood Pressure 144/95 H 12/22/24 07:53 Pulse Oximetry 100 12/22/24 07:53 Oxygen Delivery Room Air 12/22/24 07:53 Temperature 37.7 C H 12/22/24 07:53 Pulse Rate 99 12/22/24 09:45 Respiratory Rate 20 12/22/24 09:45 Blood Pressure 153/89 H 12/22/24 09:45 Pulse Oximetry 98 12/22/24 09:45 Oxygen Delivery Room Air 12/22/24 08:00 Medical Decision Making [facility] Narrative Medical decision making narrative: Differential diagnosis includes UTI, upper respiratory infection, pneumonia, COVID, flu, RSV COVID flu RSV were negative EKG showed no acute ischemic changes troponin was negative Chest x-ray showed no focal infiltrate Urinalysis did show evidence of a urinary tract infection Patient was started on steroids for the upper respiratory infection and was started on cefdinir for the urinary tract infection. Vital Signs Vital Signs: Vital Signs Temperature 37.7 C H 12/22/24 07:53 Pulse Rate 95 12/22/24 07:53 Respiratory Rate 16 12/22/24 07:53 Blood Pressure 144/95 H 12/22/24 07:53 Pulse Oximetry 100 12/22/24 07:53 Oxygen Delivery Room Air 12/22/24 07:53 Temperature 37.7 C H 12/22/24 07:53 Pulse Rate 99 12/22/24 09:45 Respiratory Rate 20 12/22/24 09:45 Blood Pressure 153/89 H 12/22/24 09:45 Pulse Oximetry 98 12/22/24 09:45 Oxygen Delivery Room Air 12/22/24 08:00 Lab Data 12/22/24 08:27 12/22/24 08:27 Labs: Lab Results 12/22/24 12/22/24 Range/Units 08:05 08:27 WBC 14.4 H (4.5-10.0) K/mm3 RBC 3.86 L (4.2-5.4) M/mm3 Hgb 12.8 (12.0-15.0) g/dL Hct 39.3 (37.0-47.0) % MCV 101.8 H (80-100) fl MCH 33.2 (26-34) pg MCHC 32.6 (32-36) g/dl RDW 13.4 (11.5-14.5) % Plt Count 290 (150-375) k/mm3 MPV 10.3 (7.4-10.4) fl Immature Gran % (Auto) 0.6 H (0-0.5) % Neut % (Auto) 87.1 H (45.5-73.1) % Lymph % (Auto) 5.4 L (18.3-44.2) % [place] % (Auto) 6.8 (2.6-8.5) % Eos % (Auto) 0.0 (0-4.4) % Baso % (Auto) 0.1 L (0.2-1.2) % Lymph # (Auto) 0.78 L (0.9-3.2) K/mm3 [place] # (Auto) 1.0 H (0.1-0.6) K/mm3 Eos # (Auto) 0.0 (0-0.3) K/mm3 Baso # (Auto) 0.0 (0.0-0.1) K/mm3 Abs Immat Gran (auto) 0.09 H (0.00-0.031) K/mm3 Absolute Neuts (auto) 12.5 H (1.3-6.7) K/mm3 Absolute Nucleated RBC 0.000 (0.0-0.012) K/mm3 Nucleated RBC % 0.0 (0.0-0.2) % Sodium 137 (137-145) mmol/L Potassium 3.6 (3.4-5.0) mmol/L Chloride 104 (98-107) mmol/L Carbon Dioxide 26 (22-30) mmol/L Anion Gap 7 (4-12) mmol/L BUN 9 (7-17) mg/dL Creatinine 0.79 (0.7-1.0) mg/dL Estim Creat Clear Calc 50 ml/min Estimated GFR > 60 (59 - ) Glucose 131 H (65-110) mg/dL Lactic Acid 1.0 (0.7-2.0) mmol/L Calcium 9.0 (8.4-10.2) mg/dL Total Bilirubin 0.6 (0.2-1.3) mg/dL AST 28 (14-36) U/L ALT 20 (6-35) U/L Alkaline Phosphatase 81 (38-126) U/L Troponin I < 0.012 (0.000-0.034) ng/mL NT-Pro-B Natriuret Pep 663 H (19.9-100) pg/mL Total Protein 7.0 (6.3-8.2) g/dL Albumin 4.2 (3.5-5.1) g/dL Lipase 30 (23-300) U/L Urine Color Yellow (Yellow) Urine Appearance Clear (Clear) Urine pH 6.5 (5.0-9.0) Ur Specific [place] 1.007 (1.001-1.035) Urine Protein Trace (Negative) mg/dL Urine Glucose (UA) Negative (Negative) mg/dL Urine Ketones Negative (Negative) mg/dL Ur Blood (Man) Trace (Negative) Urine Nitrate Negative (Negative) Urine Bilirubin Negative (Negative) Urine Urobilinogen 0.2 (<2.0) mg/dL Leukocyte Esterase Rfl 3+ H (Negative) BETTINA/UL Urine RBC 0-2 (0-2) /hpf Urine WBC 51-100 H (0-3) /hpf Ur Squamous Epith Cells None seen (Few) /hpf Urine Bacteria 2+ H /hpf Urine Casts 0-2 Influenza A (RT-PCR) Negative (Negative) Influenza B (RT-PCR) Negative (Negative) RSV (RT-PCR) Negative (Negative) SARS-CoV-2 RNA (RT-PCR) Negative (Negative) Discharge Plan Discharge Clinical Impression: UTI (urinary tract infection), Acute upper respiratory infection Patient Disposition: Home Condition: Stable Instructions: Antibiotic Form, Urinary Tract Infection in Women (ED), Upper Respiratory Infection (ED) Patient Language: Kosovan Prescriptions: New cefdinir 300 mg capsule 300 mg PO Q12H 10 Days Qty: 20 0RF benzonatate 200 mg capsule 200 mg PO TID PRN (Reason: cough) Qty: 21 0RF prednisone 20 mg tablet 40 mg PO DAILY 5 Days Qty: 10 0RF No Action Cimzia 200 mg/mL syringe kit 200 mg subcut ONCE meclizine 25 mg tablet 25 mg PO TID PRN (Reason: dizziness or vertigo) 7 Days Qty: 21 0RF leflunomide 20 mg tablet 20 mg PO DAILY azathioprine 50 mg tablet 50 mg PO DAILY amlodipine [Norvasc] 5 mg Tablet 10 mg PO QAM Qty: 60 0RF Follow-up/Referrals: Karan,Hayley Jimenez ZONE MANAGER [Primary Care Provider] - Time of Disposition: 10:29
== END 2024-12-22 10:35 | disposition home or self-care (01) ==
PROVIDERS: Emergency Provider Emergency Medicine; PCP Nurse Practitioner Family
DX: J06.9 Acute upper respiratory infection, unspecified (principal); N39.0 Urinary tract infection, site not specified; Z20.822 Contact with and (suspected) exposure to COVID-19; M06.9 Rheumatoid arthritis, unspecified; L40.50 Arthropathic psoriasis, unspecified; Z86.0100 Personal history of colon polyps, unspecified; Z87.891 Personal history of nicotine dependence; Z79.620 Long term (current) use of immunosuppressive biologic; Z79.899 Other long term (current) drug therapy
CPT/HCPCS: 36415; 71046; 80053; 81001; 83605; 83690; 83880; 84484; 85025; 87077; 87086; 87186; 87637; 93005; 94640; 96374; 99284; J1885

== ENCOUNTER 2025-01-20 10:58 | Emergency (ER) | payer OTHER, SELFPAY ==
--- NOTE | 2025-01-20 11:02 | ED_ITS ---
HPI - Female Genitourinary General Chief complaint: Urogenital-Female Stated complaint: lt side pain Time Seen by Provider: 01/20/25 11:00 Source: patient Mode of arrival: ambulatory Limitations: no limitations History of Present Illness HPI Narrative: Patient is a 54-year-old female who presents with left side flank pain, fever, chills, or urgency, frequency and burning with urination since last night. Patient called PCP and was told she needed to be seen for UTI. Patient UTI last month. Patient is on a medication with side effects of UTIs. Patient also admits to history of kidney stone. Patient has taken Tylenol. MD elicited complaint: dysuria Related Data Home Medications ?Medication ?Instructions ?Recorded ?Confirmed ?Last Taken ?Type leflunomide 20 mg tablet 20 mg PO DAILY 12/14/20 08/14/23 Unknown History certolizumab pegol 200 mg/mL 200 mg subcut ONCE 09/30/24 09/30/24 Unknown History subcutaneous syringe kit (Cimzia) Allergies Allergy/AdvReac Type Severity Reaction Status Date / Time codeine AdvReac Intermediate GI UPSET Verified 01/20/25 11:11 Review of Systems Review of Systems: All systems reviewed & are unremarkable except as noted in HPI and below Constitutional: Constitutional: Reports chills, Reports fever(s), Denies headache(s), Denies malaise and Denies weakness Eyes: Eyes: Denies change in vision, Denies eye discharge and Denies irritation ENT: Denies otalgia, Denies headache(s), Denies nasal congestion, Denies nasal discharge, Denies sinus pain and Denies sore throat Cardiovascular: Cardiovascular: Denies chest pain, Denies edema, Denies palpitations and Denies dyspnea Respiratory: Respiratory: Denies cough and Denies dyspnea Gastrointestinal: Gastrointestinal: Denies abdominal pain, Denies diarrhea, Denies nausea and Denies vomiting Genitourinary: Genitourinary: Denies hematuria, Reports nocturia, Reports dysuria, Reports flank pain and Reports urinary urgency Musculoskeletal: Musculoskeletal: Denies back pain and Denies numbness Integumentary/Breasts: Skin/Breast: Denies pruritus and Denies rash Neurologic: Denies headache(s), Denies numbness and Denies weakness Psychiatric: Psychiatric: Reports no additional psychiatric complaints Endocrine: Endocrine: Denies palpitations PMFSH Past Medical History Medical History History of vaginal delivery x 3 History of colon polyps Rheumatoid arthritis Psoriatic arthritis Surgical History Surgical History History of decompression of ulnar nerve Bilateral 2005 History of carpal tunnel surgery bilateral 2005 [place] teeth removed 1998 History of tubal ligation 1990 History of laparoscopy 1196 1996 History of colonoscopy with polypectomy 2018 History of dilation and curettage Family History Family History Father Alcoholism Lung cancer Brain cancer Hypertension Cerebrovascular accident Mother Hypertension Sibling Alcoholism Grandparent Stomach cancer Skin cancer Malignant neoplasm of prostate Hypertension Social History Social History Smoking status: Former smoker Smoking end date: 06/13/23 Alcohol intake: never Substance use: never Substance use type: does not use Do You Feel Safe in your Home?: Yes Lack of Transportation: No Lack of Food: Never True Current Housing: I Have Housing Concerned About Future Housing: No Difficulty Paying Gas/Electric Bills: No Difficulty Paying for Meds: No Currently Unemployed: No Education: Associate Degree Difficulty w/ Childcare or Family Care: No Living arrangements: with family Spiritual care concerns: No Comments At time of signature, agree with nursing past medical, surgical, social and family history. There is no relevant family history pertinent to the presenting complaint. Exam Const: General: cooperative, healthy appearing, comfortable, no acute distress and well nourished Nutritional Appearance: well nourished Orientation/consciousness: patient oriented x3 HENMT: Head: normocephalic and atraumatic Ears: external ears normal Fac e/Nose/Sinus: Normal external nose present, Normal nares present and normal facial exam Face and sinus: normal facial exam Eyes: General: appearance normal, both eyes and all related structures Pupils: Equal, round and reactive pupils present EOM: EOMs intact bilaterally Neck: Neck: normal visual inspection, full ROM and supple Chest: Chest palpation & inspection: normal inspection of the chest Resp: Effort & Inspection: normal respiratory effort and able to speak in complete sentences Cardio: Rate: regular rate Rhythm: regular rhythm GI: Inspection: normal to inspection GI Palp: No abdominal tenderness and Yes Soft to palpation : General: Yes CVA tenderness on the left Back/Spine/Pelvis: Back: no CVA tenderness Skin: General skin exam: normal color and no rashes or lesions noted Neuro: General: patient oriented x3 and moves all extremities Cranial nerves: Yes Equal, round and reactive pupils present Extrem: General: normal to inspection and full ROM Psych: Appearance: grossly normal and well kempt Course Course Emergency Course: Patient is aware of diagnosis, understands and agrees to treatment plan. Anticipatory guidance given. Patient agrees to follow-up as directed and is aware of reasons to seek care at the emergency department. Portions of this record may have been created with voice recognition software Level of Care: Express Care Visit Vital Signs Vital signs: Vital Signs Temperature 38.2 C H 01/20/25 11:08 Pulse Rate 95 01/20/25 11:08 Respiratory Rate 18 01/20/25 11:08 Blood Pressure 155/89 H 01/20/25 11:08 Pulse Oximetry 99 01/20/25 11:08 Oxygen Delivery Room Air 01/20/25 11:08 Temperature 37.7 C H 01/20/25 11:27 Pulse Rate 95 01/20/25 11:08 Respiratory Rate 18 01/20/25 11:08 Blood Pressure 155/89 H 01/20/25 11:08 Pulse Oximetry 99 01/20/25 11:08 Oxygen Delivery Room Air 01/20/25 11:08 Reviewed MDM - Female Genitourinary MDM Narrative Medical decision making narrative: Exam findings and UA show probable UTI; x-rays not available at this time, equipment malfunction. Discussed with patient if symptoms are worsening or there is no improvement after 24 hours on antibiotics to go to the hospital for further workup and imaging. Discussed concern for infected kidney stone. Patient does not wish to go to the emergency department at this time. Given Toradol shot for pain. After removing blanket patient is no longer febrile. Will treat with ciprofloxacin. First-line treatment for pyelonephritis and it was susceptible on urine culture results 1 month ago Pt well hydrated appearing, in no respiratory distress, hemodynamically stable. Recommend supportive care. The patient is stable at time of discharge the clinical impression was discussed and the patient was given the opportunity to ask questions, which were addressed as completely as possible given the information available at present. Anticipatory guidance and return to care precautions were discussed and the importance of primary care follow-up was stre ssed and encouraged. The patient voiced understanding of the plan, indications to return, and the need for follow-up. Patient is appropriate for outpatient treatment and follow-up. Differential Diagnosis Differential diagnosis: Likely urinary tract infection, bacterial vaginosis, trichomoniasis, cervicitis, vaginitis and cystitis Medical Records Attestation: I reviewed the patient's medical records. Lab Data Attestation: I reviewed the patient's lab results. Labs: Lab Results 01/20/25 Range/Units 11:15 POC Urine Color Yellow POC Urine Clarity Cloudy POC Urine pH 6.5 POC Ur Specif [place] 1.015 POC Urine Protein 1+ (Negative) POC Ur Glucose (UA) Negative (Negative) POC Urine Ketones 2+ (Negative) POC Urine Blood 1+ (Negative) POC Urine Nitrite Positive (Negative) POC Urine Bilirubin Negative (Negative) POC Urine Urobilinogen 0.2 POC U Leukocyte Esteras 3+ (Negative) Discharge Plan Discharge Clinical Impression: Urinary tract infection Qualifiers: Urinary tract infection type: acute pyelonephritis Qualified Code(s): N10 - Acute pyelonephritis Patient Disposition: Home Condition: Stable Instructions: Urinary Tract Infection in Women (ED) Additional Instructions: We will send a urine culture to the lab, based on your symptoms and urine dip we will start treatment today. If culture comes back and bacteria is not velazquez sceptible to antibiotic, your prescription may change. Your symptoms should improve within a day of starting antibiotics, but you should finish all the antibiotic pills you get. Otherwise your infection might come back Continue with increased water intake. For pain, you may take: Tylenol 650-1000mg by mouth every 4-6 hours. Do not exceed 4000mg in 24 hours. Advil (Ibuprofen) 600 mg by mouth every 6 hours. Do not exceed 2400mg in 24 hours. 8 AM: Tylenol 11 AM: Ibuprofen 2 PM: Tylenol 5 PM: Ibuprofen 8 PM: Tylenol 11 PM: Ibuprofen 2 AM: Tylenol 5 AM: Ibuprofen Follow-up with primary care provider for urine recheck or see ER visit if condition worsens with high fever, nausea, vomiting, severe back pain Patient Language: Korean Prescriptions: New ciprofloxacin HCl 500 mg tablet 500 mg PO Q12H 7 Days Qty: 14 0RF No Action Cimzia 200 mg/mL syringe kit 200 mg subcut ONCE leflunomide 20 mg tablet 20 mg PO DAILY amlodipine [Norvasc] 5 mg Tablet 10 mg PO QAM Qty: 60 0RF Follow-up/Referrals: Dallin,Hayley Jimenez [facility] DIRECTOR [Primary Care Provider] - 3 Days Time of Disposition: 11:36
[2025-01-20 11:08] VITALS: BP 155/89; PULSE 95; RESP 18; TEMP 38.2; O2SAT 99
[2025-01-20] MEDS: KETOROLAC 30 MG/ML VIAL (*BKC) IM (11:20)
[2025-01-20 11:27] VITALS: TEMP 37.7
--- NOTE | 2025-01-20 11:36 | PC.NURSE ---
1127- Pt was wearing a thick blanket. Had her remove blanket for a few minutes and rechecked temp.
[2025-01-20 11:58] LABS: EDUAAPPEAR Cloudy; EDUABILI Negative (Negative); EDUABLOOD 1+ (Negative); EDUACOLOR1 Yellow; EDUAGLUCOSE Negative (Negative); EDUAKETONE 2+ (Negative); EDUALEUKO 3+ (Negative); EDUANITRATE Positive (Negative); EDUAPH 6.5; EDUAPROTEIN 1+ (Negative); EDUASPGRAVITY 1.015; EDUAUROBILI 0.2
== END 2025-01-20 11:38 | disposition home or self-care (01) ==
PROVIDERS: Emergency Provider Nurse Practitioner Family; PCP Nurse Practitioner Family
DX: N10 Acute pyelonephritis (principal); L40.50 Arthropathic psoriasis, unspecified
CPT/HCPCS: 81003; 87086; 87186; 96372; 99213; G0463; J1885

== ENCOUNTER 2025-01-21 06:46 | Inpatient (IN) | payer OTHER, SELFPAY ==
[2025-01-21] VITALS (16 sets, daily range): BP systolic 101–138; BP diastolic 63–90; PULSE 74–102; RESP 14–20; TEMP 36.6–38.9; O2SAT 90–100; BMI 24.7
--- NOTE | ~2025-01-21 | XR_ITS ---
EXAM/PROCEDURE: XR abdomen/kub 1V - 01/21/2025 8:41 CDT HISTORY: 54 years old Female with Ureteral stone, PT STATES CURRENT UTI COMPARISON: None available. TECHNIQUE: AP view(s) of the abdomen. FINDINGS: The bowel gas pattern is normal. There is no evidence for obstruction. No free intraperitoneal air is identified on this supine radiograph. Excreted intravenous contrast se en in both collecting systems and the urinary bladder. Moderate left hydronephrosis. The visualized soft tissue shadows are otherwise unremarkable. No gross bony abnormalities are seen. Visualized portions of lung bases are clear. IMPRESSION: Excreted intravenous contrast seen in both collecting systems and the urinary bladder. Moderate left hydronephrosis. Reviewed, dictated and finalized at location A. IMPRESSION: Excreted intravenous contrast seen in both collecting systems and the urinary b ladder. Moderate left hydronephrosis.
--- NOTE | ~2025-01-21 | XR_ITS ---
XR stent kub - surgery Ordering provider: Yair Maldonado MD History: . LEFT STENT . Comparison: None. FINDINGS/impression: Left double-J stent with retrograde pyelography. Fluoroscopy time is 8.6 seconds. Cumulative radiation dose is 2.29mGy. Reviewed, dictated and finalized at location A.
--- NOTE | ~2025-01-21 | CT_ITS ---
CT of the Abdomen and Pelvis: Indication: Left flank pain Technique: 2.5 mm axial scans were obtained through the abdomen and pelvis following intravenous adm inistration of 100 cc of Omnipaque 350. Dose reduction technique was used on this scan by utilizing a utomated exposure control and iterative reconstruction technique. The dose-length product (DLP) was 2 73.94 mGy-cm. Findings: Scans through the lung bases are unremarkable. The liver, spleen, pancreas, gallbladder, adrenals and right kidney are within normal limits. There i s a 7 mm round stone at the proximal left ureter (axial image 94), with mild to moderate left hydrone phrosis. Additional nonobstructing left renal stones are present, largest measuring 6 mm. Minimal hyp erenhancement of the urothelium at the proximal left ureter and left renal pelvis. There are atherosc lerotic calcifications of the aorta. No lymphadenopathy. No bowel obstruction or bowel wall thickening. There is no evidence to suggest acute appendicitis. Images through the pelvis were performed. Urinary bladder unremarkable. No pelvic mass seen. No ascit es. Impression: 7 mm round stone at the proximal ureter with mild to moderate left hydronephrosis. Additional nonobstructing left renal stones, as detailed above. Mild hyperenhancement of the urothelium of the left renal pelvis and proximal ureter. Correlate for a scending urinary tract infection. No definite CT evidence of haresh pyelonephritis. Reviewed, dictated and finalized at [facility]. Impression: 7 mm round stone at the proximal ureter with mild to moderate left hydronephros is. Additional nonobstructing left renal stones, as detailed above. Mild hyperenhancement of the urothelium of the left renal pelvis and proximal u reter. Correlate for ascending urinary tract infection. No definite CT evidence of haresh pyelonephritis.
[2025-01-21 07:02] LABS: Basophils Percent Auto 0.4 % (0.2-1.2); Hematocrit 38.5 % (37.0-47.0); Hemoglobin 12.6 g/dL (12.0-15.0); Immature Granulocyte Absolute 0.05 K/mm3 (0.00-0.031); Immature Granulocyte Percent A 0.4 % (0-0.5); Lymphocytes Absolute Auto 1.01 K/mm3 (0.9-3.2); Lymphocytes Percent Auto 8.9 % (18.3-44.2); Mean Corpuscular HGB Conc 32.7 g/dl (32-36); Mean Corpuscular Hemoglobin 32.7 pg (26-34); Mean Platelet Volume 9.7 fl (7.4-10.4); Monocytes Absolute Auto 1.1 K/mm3 (0.1-0.6); Monocytes Percent Auto 9.4 % (2.6-8.5); Neutrophils Absolute Auto 9.2 K/mm3 (1.3-6.7); Neutrophils Percent Auto 80.9 % (45.5-73.1); Platelet Count Result 235 k/mm3 (150-375); Red Blood Count 3.85 M/mm3 (4.2-5.4); White Blood Count 11.4 K/mm3 (4.5-10.0)
[2025-01-21 07:07] LABS: BEDSIDEPREGUCG Negative (Negative)
[2025-01-21 07:14] LABS: Alanine Aminotransferase 14 U/L (6-35); Albumin Level 4.2 g/dL (3.5-5.1); Alkaline Phosphatase 73 U/L (38-126); Anion Gap 8 mmol/L (4-12); Aspartate Amino Transferase 25 U/L (14-36); Bilirubin,Total 0.8 mg/dL (0.2-1.3); Blood Urea Nitrogen 9 mg/dL (7-17); Calcium 9.1 mg/dL (8.4-10.2); Carbon Dioxide 25 mmol/L (22-30); Chloride 100 mmol/L (98-107); Estimated CRCL calculation 55 ml/min; Estimated Glomerular Filt Rate > 60; Glucose 121 mg/dL (65-110); Lipase 29 U/L (23-300); Potassium 3.5 mmol/L (3.4-5.0); Sodium 133 mmol/L (137-145); Total Protein 7.5 g/dL (6.3-8.2)
[2025-01-21 07:15] LABS: Add Urine Microscopic? YES; Appearance Urine Clear (Clear); Bacteria Urine None Seen /hpf; Bilirubin Urine Negative (Negative); Blood Urine Trace (Negative); Color Urine Yellow (Yellow); Glucose Urine UA Negative (Negative); Ketones Urine Trace mg/dL (Negative); Leukocyte Esterase Ur 2+ LEU/UL (Negative); Nitrate Urine Negative (Negative); Non Pathogenic Casts 0-2; Protein Urine Trace mg/dL (Negative); RBC Urine 0-2 /hpf (0-2); Specific Grav Ur 1.007 (1.001-1.035); Squamous Epithelial Cell Urine Occasional /hpf (Few); Urobilinogen Urine 0.2 mg/dL (<2.0); WBC Urine 21-50 /hpf (0-3)
--- NOTE | 2025-01-21 07:20 | ED_ITS ---
HPI - General Adult General Chief complaint: Unspecified Stated complaint: headache/L flank pain Time Seen by Provider: 01/21/25 06:54 History of Present Illness HPI narrative: This is a 54-year-old female presenting for left flank pain. Patient developed pain on urination urinary urgency 2 days ago. It is associated with a sharp left-sided flank pain that radiates into her left lower abdomen. Patient had a fever of 101 yesterday. After she developed urinary symptoms she developed body aches nausea vomiting and a headache on the top her head. Headache is on top of her head behind her eyes and described as a pressure. Patient denies loss of consciousness, visual changes, chest pain breathing, diarrhea, neck pain. Related Data Home Medications ?Medication ?Instructions ?Recorded ?Confirmed ?Last Taken ?Type leflunomide 20 mg tablet 20 mg PO DAILY 12/14/20 08/14/23 Unknown History certolizumab pegol 200 mg/mL 200 mg subcut ONCE 09/30/24 09/30/24 Unknown History subcutaneous syringe kit (Cimzia) Allergies Allergy/AdvReac Type Severity Reaction Status Date / Time codeine AdvReac Intermediate GI UPSET Verified 01/20/25 11:11 [facility] Past Medical History Medical History History of vaginal delivery x 3 History of colon polyps Rheumatoid arthritis Psoriatic arthritis Surgical History Surgical History History of decompression of ulnar nerve Bilateral 2005 History of carpal tunnel surgery bilateral 2005 [place] teeth removed 1998 History of tubal ligation 1990 History of laparoscopy 1196 1996 History of colonoscopy with polypectomy 2018 History of dilation and curettage Family History Family History Father Alcoholism Lung cancer Brain cancer Hypertension Cerebrovascular accident Mother Hypertension Sibling Alcoholism Grandparent Stomach cancer Skin cancer Malignant neoplasm of prostate Hypertension Social History Social History Smoking status: Former smoker Smoking end date: 06/13/23 Alcohol intake: never Substance use: never Substance use type: does not use Do You Feel Safe in your Home?: Yes Lack of Transportation: No Lack of Food: Never True Current Housing: I Have Housing Concerned About Future Housing: No Difficulty Paying Gas/Electric Bills: No Difficulty Paying for Meds: No Currently Unemployed: No Education: Associate Degree Difficulty w/ Childcare or Family Care: No Living arrangements: with family Spiritual care concerns: No Exam 2 Narrative: APPEARANCE: No apparent distress. Well-appearing Head: atraumatic. EYES: EOMI, NOSE: Atraumatic NECK: Trachea midline RESPIRATORY: No increased rate of breathing CTAB CARDIOVASCULAR: RRR, no peripheral ABDOMINAL: Non-distended soft nontender guarding rebound, left CVA tenderness MUSCULOSKELETAl: No obvious deformities NEURO: Alert. Cranial nerves 2-12 grossly intact. Sensation light touch, motor function cerebellar function intact for 4 extremities. Gait exam was normal. SKIN:: Warm, dry. Normal color PSYCHIATRIC: Normal affect Course Vital Signs Vital signs: Vital Signs Temperature 97.8 F 01/21/25 06:50 Pulse Rate 83 01/21/25 06:50 Respiratory Rate 16 01/21/25 06:50 Blood Pressure 138/76 01/21/25 06:50 Pulse Oximetry 90 01/21/25 06:50 Oxygen Delivery Room Air 01/21/25 06:50 Temperature 97.8 F 01/21/25 06:50 Pulse Rate 83 01/21/25 06:50 Respiratory Rate 16 01/21/25 06:50 Blood Pressure 138/76 01/21/25 06:50 Pulse Oximetry 90 01/21/25 06:50 Oxygen Delivery Room Air 01/21/25 06:50 Medical Decision Making MDM Narrative Medical decision making narrative: -Course: 54-year-old female presenting with fevers and urinary symptoms with left-sided flank pain. On exam she is resting comfortably in bed no distress. Vital signs are stable. Patient given fluids, Toradol and Zofran. Urine indicative of infection. CT abdomen pelvis showed a 7 mm stone in the proximal ureter with [id number] hydronephrosis. Urology consult for infected stone. Plan for stent placement. Patient started on ceftriaxone. Patient will be admitted to medicine. -DDX includes but is not limited to: UTI/Pyelo, infected/septic stone, Viral syndrome -Co-morbidities complicating care: RA, hypertension Vital Signs Vital Signs: Vital Signs Temperature 97.8 F 01/21/25 06:50 Pulse Rate 83 01/21/25 06:50 Respiratory Rate 16 01/21/25 06:50 Blood Pressure 138/76 01/21/25 06:50 Pulse Oximetry 90 01/21/25 06:50 Oxygen Delivery Room Air 01/21/25 06:50 Temperature 97.8 F 01/21/25 06:50 Pulse Rate 83 01/21/25 06:50 Respiratory Rate 16 01/21/25 06:50 Blood Pressure 138/76 01/21/25 06:50 Pulse Oximetry 90 01/21/25 06:50 Oxygen Delivery Room Air 01/21/25 06:50 Lab Data 01/21/25 06:55 01/21/25 06:55 Labs: Lab Results 01/21/25 01/21/25 01/21/25 Range/Units 06:55 07:03 07:05 WBC 11.4 H (4.5-10.0) K/mm3 RBC 3.85 L (4.2-5.4) M/mm3 Hgb 12.6 (12.0-15.0) g/dL Hct 38.5 (37.0-47.0) % MCV 100.0 (80-100) fl MCH 32.7 (26-34) pg MCHC 32.7 (32-36) g/dl RDW 14.0 (11.5-14.5) % Plt Count 235 (150-375) k/mm3 MPV 9.7 (7.4-10.4) fl Immature Gran % (Auto) 0.4 (0-0.5) % Neut % (Auto) 80.9 H (45.5-73.1) % Lymph % (Auto) 8.9 L (18.3-44.2) % [place] % (Auto) 9.4 H (2.6-8.5) % Eos % (Auto) 0.0 (0-4.4) % Baso % (Auto) 0.4 (0.2-1.2) % Lymph # (Auto) 1.01 (0.9-3.2) K/mm3 [place] # (Auto) 1.1 H (0.1-0.6) K/mm3 Eos # (Auto) 0.0 (0-0.3) K/mm3 Baso # (Auto) 0.0 (0.0-0.1) K/mm3 Abs Immat Gran (auto) 0.05 H (0.00-0.031) K/mm3 Absolute Neuts (auto) 9.2 H (1.3-6.7) K/mm3 Absolute Nucleated RBC 0.000 (0.0-0.012) K/mm3 Nucleated RBC % 0.0 (0.0-0.2) % Sodium 133 L (137-145) mmol/L Potassium 3.5 (3.4-5.0) mmol/L Chloride 100 (98-107) mmol/L Carbon Dioxide 25 (22-30) mmol/L Anion Gap 8 (4-12) mmol/L BUN 9 (7-17) mg/dL Creatinine 0.71 (0.7-1.0) mg/dL Estim Creat Clear Calc 55 ml/min Estimated GFR > 60 (59 - ) Glucose 121 H (65-110) mg/dL Calcium 9.1 (8.4-10.2) mg/dL Total Bilirubin 0.8 (0.2-1.3) mg/dL AST 25 (14-36) U/L ALT 14 (6-35) U/L Alkaline Phosphatase 73 (38-126) U/L Total Protein 7.5 (6.3-8.2) g/dL Albumin 4.2 (3.5-5.1) g/dL Lipase 29 (23-300) U/L Urine Color Yellow (Yellow) Urine Appearance Clear (Clear) Urine pH 6.0 (5.0-9.0) Ur Specific [place] 1.007 (1.001-1.035) Urine Protein Trace (Negative) mg/dL Urine Glucose (UA) Negative (Negative) mg/dL Urine Ketones Trace H (Negative) mg/dL Ur Blood (Man) Trace (Negative) Urine Nitrate Negative (Negative) Urine Bilirubin Negative (Negative) Urine Urobilinogen 0.2 (<2.0) mg/dL Leukocyte Esterase Rfl 2+ H (Negative) BETTINA/UL Urine RBC 0-2 (0-2) /hpf Urine WBC 21-50 H (0-3) /hpf Ur Squamous Epith Cells Occasional (Few) /hpf Urine Bacteria None seen /hpf Urine Casts 0-2 POC Urine HCG, Qual Negative (Negative) Discharge Plan Discharge Clinical Impression: Stone in kidney, UTI (urinary tract infection) Patient Disposition: Home Condition: Stable Instructions: Antibiotic Form Patient Language: Spanish Prescriptions: No Action Cimzia 200 mg/mL syringe kit 200 mg subcut ONCE ciprofloxacin HCl 500 mg tablet 500 mg PO Q12H 7 Days Qty: 14 0RF leflunomide 20 mg tablet 20 mg PO DAILY amlodipine [Norvasc] 5 mg Tablet 10 mg PO QAM Qty: 60 0RF Follow-up/Referrals: Dallin,Hayley Jimenez NP [Primary Care Provider] -
[2025-01-21] MEDS: KETOROLAC 15 MG/ML VIAL (*BKC) IV PUSH (07:41)
[2025-01-21] MEDS: ONDANSETRON INJ 4 MG/2 ML VIAL IV PUSH (07:42)
[2025-01-21] MEDS: SODIUM CHLORIDE 0.9% IV 1,000 ML 999 ML IV CONT (07:42)
--- NOTE | 2025-01-21 12:06 | P.CONUR_ITS ---
Assessment and Plan Assessment and plan (1) Ureteral stone: Code(s): N20.1 - Calculus of ureter Status: Acute (2) Right renal stone: Code(s): N20.0 - Calculus of kidney Status: Acute (3) Hydronephrosis: Code(s): N13.30 - Unspecified hydronephrosis Status: Acute (4) Abnormal urinalysis: Code(s): R82.90 - Unspecified abnormal findings in urine Status: Acute Plan She has fevers, abnormal urinalysis, signs of infection, obstructing stone. We will take her to the operating room urgently today for a left ureteral stent placement. She understands we will not be removing the stone. Definitive stone management to follow once the acute situation resolves. She understands risks of bleeding, infection, inability to place the stent, damage to the urinary tract. Admit to hospitalist postoperatively urine culture and blood culture to be obtained if not done already. Treat with culture specific antibiotics for 14 days. Urology Consult Note HPI Date Seen: 01/21/25 Requesting Physician: Yair Maldonado MD Primary Care Provider: Hayley Zamarripa, [employer] HEL[employer] Consult Narrative Narrative: Elvira Morataya is a 54 year old female who is in the ER 2 days ago with symptoms of urinary tract infection. She was sent home on antibiotics she returned to the emergency room today with fever and flank pain. CT scan shows a 7 mm proximal ureteral stone with hydronephrosis and additional nonobstructing stones left kidney. She has fever and an abnormal urinalysis consistent with infection. Urothelial enhancement noted on CT as well. She has a temperature of 101? here in the hospital. She does endorse symptoms of urinary tract infection as well as flank pain. She would like to have her stone removed but understands in the setting of infection we will only place ureteral stent. Her stone is visible on KUB and we can plan on outpatient definitive stone management once the acute situation resolves. She is currently admitted to the hospitalist. Review of Systems 2 Review of Systems: All systems reviewed & are unremarkable except as noted in HPI and below PMFSH Past Medical History Medical History History of vaginal delivery x 3 History of colon polyps Rheumatoid arthritis Psoriatic arthritis Surgical History Surgical History History of decompression of ulnar nerve Bilateral 2005 History of carpal tunnel surgery bilateral 2005 [place] teeth removed 1998 History of tubal ligation 1990 History of laparoscopy 1196 1996 History of colonoscopy with polypectomy 2018 History of dilation and curettage Family History Family History Father Alcoholism Lung cancer Brain cancer Hypertension Cerebrovascular accident Mother Hypertension Sibling Alcoholism Grandparent Stomach cancer Skin cancer Malignant neoplasm of prostate Hypertension Social History Social History Smoking status: Former smoker Smoking end date: 06/13/23 Alcohol intake: never Substance use: never Substance use type: does not use Do You Feel Safe in your Home?: Yes Lack of Transportation: No Lack of Food: Never True Current Housing: I Have Housing Concerned About Future Housing: No Difficulty Paying Gas/Electric Bills: No Difficulty Paying for Meds: No Currently Unemployed: No Education: Associate Degree Difficulty w/ Childcare or Family Care: No Living arrangements: with family Spiritual care concerns: No Meds Home Medications and Allergies Home Medications ?Medication ?Instructions ?Recorded ?Confirmed ?Type leflunomide 20 mg tablet 20 mg PO DAILY 12/14/20 08/14/23 History amlodipine 5 mg tablet (Norvasc) 10 mg (2 x 5 mg) PO QAM #60 tabs 08/15/23 Rx certolizumab pegol 200 mg/mL 200 mg subcut ONCE 09/30/24 09/30/24 History subcutaneous syringe kit (Cimzia) ciprofloxacin HCl 500 mg tablet 500 mg PO Q12H 7 days #14 tabs 01/20/25 Rx Allergies Allergy/AdvReac Type Severity Reaction Status Date / Time codeine AdvReac Intermediate GI UPSET Verified 01/20/25 11:11 Vital Signs Vital Signs - 24 hr 01/21/25 06:50 01/21/25 07:39 01/21/25 08:00 Temperature 97.8 F Pulse Rate 83 79 75 Respiratory Rate 16 19 14 Blood Pressure 138/76 115/87 Pulse Oximetry 90 98 Oxygen Delivery Room Air 01/21/25 08:01 01/21/25 08:16 01/21/25 08:51 Temperature 97.8 F 97.8 F Pulse Rate 74 81 74 Respiratory Rate 14 16 16 Blood Pressure 113/90 123/78 123/74 Pulse Oximetry 99 97 99 Oxygen Delivery 01/21/25 09:01 01/21/25 10:00 01/21/25 10:00 Temperature 98.3 F Pulse Rate 77 76 Respiratory Rate 14 18 Blood Pressure 125/80 119/68 Pulse Oximetry 99 100 100 Oxygen Delivery Room Air 01/21/25 11:56 Temperature 102.1 F H Pulse Rate Respiratory Rate Blood Pressure Pulse Oximetry Oxygen Delivery Exam 2 Const: General: cooperative and healthy appearing; No confusion Nutritional Appearance: average body habitus Orientation/consciousness: patient oriented x3 Limitations: no limitations HENMT: Head: normal to inspection Eyes: General: appearance normal, both eyes and all related structures Resp: Effort & Inspection: normal respiratory effort, able to speak in complete sentences and no cough Skin: General skin exam: normal color Neuro: General: patient oriented x3 Extrem: General: normal to inspection Psych: Appearance: grossly normal Results Labs 01/21/25 06:55 01/21/25 06:55 Labs: Short CBC 01/21/25 Range/Units 06:55 WBC 11.4 H (4.5-10.0) K/mm3 Hgb 12.6 (12.0-15.0) g/dL Hct 38.5 (37.0-47.0) % Plt Count 235 (150-375) k/mm3 BMP 01/21/25 06:55 Sodium 133 L Potassium 3.5 Chloride 100 Carbon Dioxide 25 BUN 9 Creatinine 0.71 Glucose 121 H Calcium 9.1 Liver Function 01/21/25 Range/Units 06:55 Total Bilirubin 0.8 (0.2-1.3) mg/dL AST 25 (14-36) U/L ALT 14 (6-35) U/L Alkaline Phosphatase 73 (38-126) U/L Albumin 4.2 (3.5-5.1) g/dL Urine 01/21/25 Range/Units 07:03 Urine Color Yellow (Yellow) Urine Appearance Clear (Clear) Urine pH 6.0 (5.0-9.0) Ur Specific [place] 1.007 (1.001-1.035) Urine Protein Trace (Negative) mg/dL Urine Glucose (UA) Negative (Negative) mg/dL Imaging My impression: Outlined in history of present illness
--- NOTE | 2025-01-21 12:30 | SUR.PREOP ---
1230- Notified Dr. Maldonado and Dr. Wong patient febrile at 103.6. Orders received from Dr. Maldonado for 1 time dose PO Tylenol 650MG with small sip of water. Tylenol given to patient at 1245- see MAR.
[2025-01-21] MEDS: ACETAMINOPHEN 325 MG TABLET 650 MG PO ×3 (12:45→22:09)
--- NOTE | 2025-01-21 13:13 | WPDHPUPDATE1 ---
History and Physical Update Update Date/Time: 01/21/25 13:13 History and Physical has been reviewed, including an updated exam of the patient. There are NO changes in the patient's condition. Risks, benefits, and alternatives have been discussed and questions answered. Patient agrees to proceed with procedure.
--- NOTE | 2025-01-21 14:02 | P.HP_ITS ---
H&P: HPI History of Present Illness Date/Time: 01/21/25 14:02 Chief Complaint: Left flank pain Fever Narrative: This is a 54-year-old female came to ER with complaints of having fever, chills, nausea, vomiting and left flank pain going on since yesterday. Patient had a fever of 101 yesterday. After she developed urinary symptoms she developed body aches nausea vomiting and a headache on the top her head. [place] patel is on top of her head behind her eyes and described as a pressure. Patient denies loss of consciousness, visual changes, chest pain breathing, diarrhea, neck pain. Patient work up in ER showed she has a right ureter stone and hydronephrosis. Cultures were done and antibiotics started. Urology saw the patient and took her to OR for a procedure. Review of Systems Review of Systems: the history and physical exam All systems reviewed & are unremarkable except as noted in HPI and below PMFSH Past Medical History Medical History History of vaginal delivery x 3 History of colon polyps Rheumatoid arthritis Psoriatic arthritis Surgical History Surgical History History of decompression of ulnar nerve Bilateral 2005 History of carpal tunnel surgery bilateral 2005 [place] teeth removed 1998 History of tubal ligation 1990 History of laparoscopy 1196 1996 History of colonoscopy with polypectomy 2018 History of dilation and curettage Family History Family History Father Alcoholism Lung cancer Brain cancer Hypertension Cerebrovascular accident Mother Hypertension Sibling Alcoholism Grandparent Stomach cancer Skin cancer Malignant neoplasm of prostate Hypertension Social History Social History Smoking status: Former smoker Smoking end date: 06/13/23 Alcohol intake: never Substance use: never Substance use type: does not use Do You Feel Safe in your Home?: Yes Lack of Transportation: No Lack of Food: Never True Current Housing: I Have Housing Concerned About Future Housing: No Difficulty Paying Gas/Electric Bills: No Difficulty Paying for Meds: No Currently Unemployed: No Education: Associate Degree Difficulty w/ Childcare or Family Care: No Living arrangements: with family Spiritual care concerns: No Meds Home Medications and Allergies Home Medications ?Medication ?Instructions ?Recorded ?Confirmed ?Type leflunomide 20 mg tablet 20 mg PO DAILY 12/14/20 08/14/23 History amlodipine 5 mg tablet (Norvasc) 10 mg (2 x 5 mg) PO QAM #60 tabs 08/15/23 Rx certolizumab pegol 200 mg/mL 200 mg subcut ONCE 09/30/24 09/30/24 History subcutaneous syringe kit (Cimzia) ciprofloxacin HCl 500 mg tablet 500 mg PO Q12H 7 days #14 tabs 01/20/25 Rx Allergies Allergy/AdvReac Type Severity Reaction Status Date / Time codeine AdvReac Intermediate GI UPSET Verified 01/20/25 11:11 Vital Signs Vital Signs - 24 hr 01/21/25 06:50 01/21/25 07:39 01/21/25 08:00 Temperature 36.6 C Pulse Rate 83 79 75 Respiratory Rate 16 19 14 Blood Pressure 138/76 115/87 Pulse Oximetry 90 98 Oxygen Delivery Room Air 01/21/25 08:01 01/21/25 08:16 01/21/25 08:51 Temperature 36.6 C 36.6 C Pulse Rate 74 81 74 Respiratory Rate 14 16 16 Blood Pressure 113/90 123/78 123/74 Pulse Oximetry 99 97 99 Oxygen Delivery 01/21/25 09:01 01/21/25 10:00 01/21/25 10:00 Temperature 36.8 C Pulse Rate 77 76 Respiratory Rate 14 18 Blood Pressure 125/80 119/68 Pulse Oximetry 99 100 100 Oxygen Delivery Room Air 01/21/25 11:56 Temperature 38.9 C H Pulse Rate Respiratory Rate Blood Pressure Pulse Oximetry Oxygen Delivery Exam Narrative: APPEARANCE: No apparent distress. Well-appearing Head: atraumatic. EYES: EOMI, NOSE: Atraumatic NECK: Trachea midline RESPIRATORY: No increased rate of breathing CTAB CARDIOVASCULAR: RRR, no peripheral ABDOMINAL: Non-distended soft nontender guarding rebound, left CVA tenderness MUSCULOSKELETAl: No obvious deformities NEURO: Alert. Cranial nerves 2-12 grossly intact. Sensation light touch, motor function cerebellar function intact for 4 extremities. Gait exam was normal. SKIN:: Warm, dry. Normal color PSYCHIATRIC: Normal affect H&P: Results Labs Labs: Short CBC 01/21/25 Range/Units 06:55 WBC 11.4 H (4.5-10.0) K/mm3 Hgb 12.6 (12.0-15.0) g/dL Hct 38.5 (37.0-47.0) % Plt Count 235 (150-375) k/mm3 BMP 01/21/25 06:55 Sodium 133 L Potassium 3.5 Chloride 100 Carbon Dioxide 25 BUN 9 Creatinine 0.71 Glucose 121 H Calcium 9.1 Liver Function 01/21/25 Range/Units 06:55 Total Bilirubin 0.8 (0.2-1.3) mg/dL AST 25 (14-36) U/L ALT 14 (6-35) U/L Alkaline Phosphatase 73 (38-126) U/L Albumin 4.2 (3.5-5.1) g/dL Urine 01/21/25 Range/Units 07:03 Urine Color Yellow (Yellow) Urine Appearance Clear (Clear) Urine pH 6.0 (5.0-9.0) Ur Specific [place] 1.007 (1.001-1.035) Urine Protein Trace (Negative) mg/dL Urine Glucose (UA) Negative (Negative) mg/dL Assessment and Plan Assessment and plan (1) Right renal stone: Code(s): N20.0 - Calculus of kidney Status: Acute Assessment and Plan: Urology consult, continue with IV hydration (2) UTI (urinary tract infection): Code(s): N39.0 - Urinary tract infection, site not specified Status: Acute Assessment and Plan: Urine culture and IV antibiotics (3) Essential (primary) hypertension: Code(s): I10 - Essential (primary) hypertension Status: Acute Assessment and Plan: Stable on current medications, will continue current treatment. Plan Admit for Observation Full Code DVT prophylaxis SCD boots
--- NOTE | 2025-01-21 14:29 | P.PNAN_ITS ---
Anes - Initial Pre Proc Eval Procedure: Operation Date: 01/21/25 13:00 Proposed Procedures p Cystoscopy, Left Stent Placement - Yair Maldonado MD Date/Time: 01/21/25 14:29 Surgeon: Yair Maldonado MD Pre Op Diagnosis: infected stone Patient Data Age: 54 Gender: F Height: 1.52 m Weight: 57.2 kg Last Vital Signs Temp 38.9 C H 01/21/25 11:56 Pulse 76 01/21/25 10:00 Resp 18 01/21/25 10:00 BP 119/68 01/21/25 10:00 Pulse Ox 100 01/21/25 10:00 O2 Del Method Room Air 01/21/25 10:00 Allergies Allergy/AdvReac Type Severity Reaction Status Date / Time codeine AdvReac Intermediate GI UPSET Verified 01/20/25 11:11 Home Medications ?Medication ?Instructions ?Recorded ?Confirmed ?Type leflunomide 20 mg tablet 20 mg PO DAILY 12/14/20 08/14/23 History amlodipine 5 mg tablet (Norvasc) 10 mg (2 x 5 mg) PO QAM #60 tabs 08/15/23 Rx certolizumab pegol 200 mg/mL 200 mg subcut ONCE 09/30/24 09/30/24 History subcutaneous syringe kit (Cimzia) ciprofloxacin HCl 500 mg tablet 500 mg PO Q12H 7 days #14 tabs 01/20/25 Rx Laboratory Tests 01/21/25 01/21/25 01/21/25 06:55 07:03 07:05 WBC 11.4 H K/mm3 (4.5-10.0) RBC 3.85 L M/mm3 (4.2-5.4) Hgb 12.6 g/dL (12.0-15.0) Hct 38.5 % (37.0-47.0) MCV 100.0 fl (80-100) MCH 32.7 pg (26-34) MCHC 32.7 g/dl (32-36) RDW 14.0 % (11.5-14.5) Plt Count 235 k/mm3 (150-375) MPV 9.7 fl (7.4-10.4) Immature Gran % (Auto) 0.4 % (0-0.5) Neut % (Auto) 80.9 H % (45.5-73.1) Lymph % (Auto) 8.9 L % (18.3-44.2) [place] % (Auto) 9.4 H % (2.6-8.5) Eos % (Auto) 0.0 % (0-4.4) Baso % (Auto) 0.4 % (0.2-1.2) Lymph # (Auto) 1.01 K/mm3 (0.9-3.2) [place] # (Auto) 1.1 H K/mm3 (0.1-0.6) Eos # (Auto) 0.0 K/mm3 (0-0.3) Baso # (Auto) 0.0 K/mm3 (0.0-0.1) Abs Immat Gran (auto) 0.05 H K/mm3 (0.00-0.031) Absolute Neuts (auto) 9.2 H K/mm3 (1.3-6.7) Absolute Nucleated RBC 0.000 K/mm3 (0.0-0.012) Nucleated RBC % 0.0 % (0.0-0.2) Sodium 133 L mmol/L (137-145) Potassium 3.5 mmol/L (3.4-5.0) Chloride 100 mmol/L (98-107) Carbon Dioxide 25 mmol/L (22-30) Anion Gap 8 mmol/L (4-12) BUN 9 mg/dL (7-17) Creatinine 0.71 mg/dL (0.7-1.0) Estim Creat Clear Calc 55 ml/min Estimated GFR > 60 (59 - ) Glucose 121 H mg/dL (65-110) Calcium 9.1 mg/dL (8.4-10.2) Total Bilirubin 0.8 mg/dL (0.2-1.3) AST 25 U/L (14-36) ALT 14 U/L (6-35) Alkaline Phosphatase 73 U/L (38-126) Total Protein 7.5 g/dL (6.3-8.2) Albumin 4.2 g/dL (3.5-5.1) Lipase 29 U/L (23-300) Urine Color Yellow (Yellow) Urine Appearance Clear (Clear) Urine pH 6.0 (5.0-9.0) Ur Specific [place] 1.007 (1.001-1.035) Urine Protein Trace mg/dL (Negative) Urine Glucose (UA) Negative mg/dL (Negative) Urine Ketones Trace H mg/dL (Negative) Ur Blood (Man) Trace (Negative) Urine Nitrate Negative (Negative) Urine Bilirubin Negative (Negative) Urine Urobilinogen 0.2 mg/dL (<2.0) Leukocyte Esterase Rfl 2+ H BETTINA/UL (Negative) Urine RBC 0-2 /hpf (0-2) Urine WBC 21-50 H /hpf (0-3) Ur Squamous Epith Cells Occasional /hpf (Few) Urine Bacteria None seen /hpf Urine Casts 0-2 POC Urine HCG, Qual Negative (Negative) Patient hx anesthesia problems: none Family hx anesthesia problems: none Results Review: All pre-operative results and documents have been reviewed as part of the pre- operative evaluation. [facility] Past Medical History Medical History (Updated 01/21/25 @ 14:30 by Jordan Santillan DO) Essential (primary) hypertension TIA (transient ischemic attack) History of vaginal delivery x 3 History of colon polyps Rheumatoid arthritis Psoriatic arthritis Surgical History Surgical History History of decompression of ulnar nerve Bilateral 2005 History of carpal tunnel surgery bilateral 2005 [place] teeth removed 1998 History of tubal ligation 1990 History of laparoscopy 1196 1996 History of colonoscopy with polypectomy 2018 History of dilation and curettage Family History Family History Father Alcoholism Lung cancer Brain cancer Hypertension Cerebrovascular accident Mother Hypertension Sibling Alcoholism Grandparent Stomach cancer Skin cancer Malignant neoplasm of prostate Hypertension Social History Social History (Updated 01/21/25 @ 14:30 by Jordan Santillan DO) Smoking packs per day: 1 Smoking cigarettes per day: 20.0 Years smoked: 30 Smoking pack-years: 30.00 Smoking status: Former smoker Smoking end date: 06/13/23 Alcohol intake: never Substance use: never Substance use type: does not use Do You Feel Safe in your Home?: Yes Lack of Transportation: No Lack of Food: Never True Current Housing: I Have Housing Concerned About Future Housing: No Difficulty Paying Gas/Electric Bills: No Difficulty Paying for Meds: No Currently Unemployed: No Education: Associate Degree Difficulty w/ Childcare or Family Care: No Living arrangements: with family Spiritual care concerns: No Anes - Eval Final PreProcedure Day of Procedure 01/21/25 14:29 Patient weight: normal Heart: regular rate and rhythm Lungs: clear to auscultation Airway: Mallampati scale class II Neurological: alert and oriented Last oral intake: >/= 8 hours ASA classification: III Emergent: no Anesthetic plan: proceed Anesthesia type and monitoring: general LMA and standard monitoring Results Review: All pre-operative results and documents have been reviewed as part of the pre- operative evaluation. Informed Consent: The patient's anesthetic plan and its attendant risks and benefits were discussed with the patient/family/POA. Questions were solicited and answers provided to the satisfaction of the patient/family/POA.
[2025-01-21] MEDS: LACTATED RINGERS 1,000 ML 30 ML IV CONT (15:11)
--- NOTE | 2025-01-21 15:11 | W.PM.PROC2 ---
Procedure Note - Detailed Date of Procedure 01/21/25 Pre-op Diagnosis Left ureteral stone / UTI Post-op Diagnosis Same Procedure Performed Cystoscopy, left ureteral stent placement Surgeon Joe Chavez MD Anesthesia General Description of Procedure The patient was brought to the operative suite where she was prepped and draped in a routine sterile fashion while in the dorsal lithotomy position. A 19 F rigid cystoscope was placed in her bladder and the bladder was circumferentially inspected. The bladder neck and urethra were endoscopically normal. The bladder mucosa was without hyperemia. There was no intravesical foreign body or neoplasm. There was a single orthotopic ureteral orifice bilaterally. Contrast is still present in the left renal pelvis from recent CT scan. I advanced .035 glidewire into the [] renal pelvis under fluoroscopy. A 4.8F variable length ureteral stent was positioned with the proximal coil in the renal pelvis and the distal coil in the bladder. Scopes and wires were removed after emptying the patient's bladder. Drains Yes Packing No Pathology None sent Complications No immediate complications Condition Stable
[2025-01-21] MEDS: fentaNYL CITRATE INJ (*CRX) 100 MCG/2 ML VIAL 25 MCG IV PUSH ×3 (15:25→15:50)
[2025-01-21] MEDS: MORPHINE SULFATE (*CRX) 2 MG/ML INJ IV PUSH ×2 (18:31→22:08)
--- NOTE | 2025-01-21 18:45 | ADMGEN ---
This patient, Elvira Morataya, was admitted to 3 Med Surg Room 320-01. Patient/family oriented to hospital policies and general routines including ID bracelet, bed and alarms, visiting hours, pain management, procedures, bathroom and other care routines, personal items, smoking policy, room service/diet, and visiting hours. Information on how to activate the Rapid Response Team has been discussed. Patient/Family are encouraged to report perceived risks to care and to ask questions if they do not understand what they are told or what they should do.
[2025-01-22 00:51] VITALS: BP 139/77; PULSE 85; RESP 18; TEMP 36.3; O2SAT 99
[2025-01-22] MEDS: MORPHINE SULFATE (*CRX) 2 MG/ML INJ IV PUSH ×3 (01:57→20:49)
[2025-01-22] MEDS: ACETAMINOPHEN 325 MG TABLET 650 MG PO ×2 (01:58→11:31)
[2025-01-22 03:11] VITALS: BP 135/68; PULSE 74; RESP 18; TEMP 37.2; O2SAT 96
[2025-01-22] MEDS: ACETAMINOPHEN/BUTALBITAL/CAFFEINE 325-50-40 MG TABLET (FIORICET) 1 TAB PO (03:52)
[2025-01-22 06:47] LABS: Basophils Percent Auto 0.4 % (0.2-1.2); Eosinophils Percent Auto 0.3 % (0-4.4); Hematocrit 32.7 % (37.0-47.0); Hemoglobin 10.4 g/dL (12.0-15.0); Immature Granulocyte Absolute 0.04 K/mm3 (0.00-0.031); Immature Granulocyte Percent A 0.5 % (0-0.5); Lymphocytes Absolute Auto 1.66 K/mm3 (0.9-3.2); Lymphocytes Percent Auto 21.4 % (18.3-44.2); Mean Corpuscular HGB Conc 31.8 g/dl (32-36); Mean Corpuscular Hemoglobin 32.8 pg (26-34); Mean Corpuscular Volume 103.2 fl (80-100); Mean Platelet Volume 10.2 fl (7.4-10.4); Monocytes Absolute Auto 0.9 K/mm3 (0.1-0.6); Monocytes Percent Auto 11.8 % (2.6-8.5); Neutrophils Absolute Auto 5.1 K/mm3 (1.3-6.7); Neutrophils Percent Auto 65.6 % (45.5-73.1); Platelet Count Result 201 k/mm3 (150-375); Red Blood Count 3.17 M/mm3 (4.2-5.4); Red Cell Distribution Width 13.9 % (11.5-14.5); White Blood Count 7.8 K/mm3 (4.5-10.0)
[2025-01-22 07:11] VITALS: BP 131/70; PULSE 73; RESP 16; TEMP 36.3; O2SAT 97
[2025-01-22] MEDS: amLODIPine BESYLATE 5 MG TABLET PO (08:45)
[2025-01-22 11:11] VITALS: BP 148/75; PULSE 85; RESP 16; TEMP 37; O2SAT 100
--- NOTE | 2025-01-22 13:49 | P.PNUR_ITS ---
Progress Note: A&P Assessment and Plan (1) Ureteral stone: Code(s): N20.1 - Calculus of ureter Status: Acute (2) UTI (urinary tract infection): Code(s): N39.0 - Urinary tract infection, site not specified Status: Acute Assessment and Plan: 54-year-old female with obstructing stone status post left ureteral stent insertion postop day 1. -continue empiric antibiotics. Okay to discharge home when comfortable on empiric antibiotics and await urine culture results -plan outpatient follow-up for definitive stone Subjective Subjective Date/Time Seen: 01/22/25 13:49 Interval history: Patient complains of headache and some stent pain. Otherwise feeling well Objective Data Vital Signs Vital Signs: Vital Signs - 24 hr 01/21/25 15:11 01/21/25 15:25 01/21/25 15:40 Temperature 37.7 C H Pulse Rate 86 86 88 Respiratory Rate 20 20 18 Blood Pressure 101/63 108/75 111/65 Pulse Oximetry 100 100 100 Oxygen Delivery Simple Face Mask Room Air Room Air Oxygen Flow Rate 8 01/21/25 15:55 01/21/25 18:34 01/21/25 19:11 Temperature 38.1 C H 37.7 C H Pulse Rate 98 102 H Respiratory Rate 16 18 Blood Pressure 120/78 133/83 Pulse Oximetry 98 98 Oxygen Delivery Room Air Oxygen Flow Rate 01/21/25 20:00 01/22/25 00:51 01/22/25 03:11 Temperature 36.3 C L 37.2 C Pulse Rate 102 H 85 74 Respiratory Rate 18 18 18 Blood Pressure 139/77 135/68 Pulse Oximetry 98 99 96 Oxygen Delivery Room Air Oxygen Flow Rate 01/22/25 07:11 01/22/25 08:00 01/22/25 11:11 Temperature 36.3 C L 37.0 C Pulse Rate 73 85 Respiratory Rate 16 16 Blood Pressure 131/70 148/75 H Pulse Oximetry 97 100 Oxygen Delivery Room Air Oxygen Flow Rate Intake/Output Intake/Output: Intake & Output 01/19/25 01/20/25 01/21/25 01/22/25 23:59 23:59 23:59 23:59 Intake Total 1890 300 Balance 1890 300 Meds/Results Medications: Active Medications Generic Name Dose Route Start Last Admin Trade Name Freq PRN Reason Stop Dose Admin Acetaminophen 650 mg 01/21/25 18:25 01/22/25 11:31 Acetaminophen 325 Mg Tablet PO 650 mg Q4H PRN Administration Mild Pain (1-3) or Fever Amlodipine Besylate 5 mg 01/22/25 09:00 01/22/25 08:45 Amlodipine Besylate 5 Mg Tablet PO 5 mg DAILY NICK Administration Ceftriaxone Sodium 1 gm in 50 mls @ 100 mls/hr 01/22/25 08:00 01/22/25 08:47 Rocephin 1 Gm/Ns 50 Ml IVPB 100 mls/hr Q24H NICK Administration Morphine Sulfate 2 mg 01/21/25 17:08 01/22/25 06:50 Morphine Sulfate (*Crx) 2 Mg/Ml Inj IV PUSH 2 mg Q4H PRN Administration Pain Rated 7-10 Radiology Results: ITS Impressions Abdomen/Pelvis CT 01/21/25 07:38 Impression: 7 mm round stone at the proximal ureter with mild to moderate left hydronephrosis. Additional nonobstructing left renal stones, as detailed above. Mild hyperenhancement of the urothelium of the left renal pelvis and proximal ureter. Correlate for ascending urinary tract infection. No definite CT evidence of haresh pyelonephritis. Abdomen X-Ray 01/21/25 08:56 IMPRESSION: Excreted intravenous contrast seen in both collecting systems and the urinary bladder. Moderate left hydronephrosis. Labs Labs: Laboratory Results - last 24 hr 01/22/25 06:26 WBC 7.8 RBC 3.17 L Hgb 10.4 L Hct 32.7 L MCV 103.2 H MCH 32.8 MCHC 31.8 L RDW 13.9 Plt Count 201 MPV 10.2 Immature Gran % (Auto) 0.5 Neut % (Auto) 65.6 Lymph % (Auto) 21.4 [place] % (Auto) 11.8 H Eos % (Auto) 0.3 Baso % (Auto) 0.4 Lymph # (Auto) 1.66 [place] # (Auto) 0.9 H Eos # (Auto) 0.0 Baso # (Auto) 0.0 Abs Immat Gran (auto) 0.04 H Absolute Neuts (auto) 5.1 Absolute Nucleated RBC 0.000 Nucleated RBC % 0.0
--- NOTE | 2025-01-22 15:01 | PM.IMPN ---
Progress Note: A&P Assessment and Plan (1) Right renal stone: Code(s): N20.0 - Calculus of kidney Status: Acute (2) UTI (urinary tract infection): Code(s): N39.0 - Urinary tract infection, site not specified Status: Acute (3) Essential (primary) hypertension: Code(s): I10 - Essential (primary) hypertension Status: Inactive Plan This is a 54-year-old female came to ER with complaints of having fever, chills, nausea, vomiting and left flank pain going on since yesterday. Patient had a fever of 101 yesterday. After she developed urinary symptoms she developed body aches nausea vomiting and a headache on the top her head. Headache is on top of her head behind her eyes and described as a pressure. Patient denies loss of consciousness, visual changes, chest pain breathing, diarrhea, neck pain. Patient work up in ER showed she has a right ureter stone and hydronephrosis. Cultures were done and antibiotics started. Urology saw the patient and status post left ureteral stent placement 01/21/2025. Obstructive uropathy with UTI. Left [id number] hydronephrosis noted on CT with left proximal ureteral stone Status post stent placement. Headache seems sinus. Will start Flonase nasal spray. Toradol does have history of migraine. Received Fioricet at night. UTI. Recent urine culture with E coli fairly pansensitive except for MP sulbactam and hypoxic lab Moderate arthritis History of colon polyps History of psoriatic arthritis Essential hypertension DVT prophylaxis SCDs Code status full code Subjective Date/time seen: 01/22/25 15:01 Interval history: Complains of frequent urination left flank pain which is still persist. The pain has turned into dull achy Review of Systems Review of Systems: All systems reviewed & are unremarkable except as noted in HPI and below Exam Narrative: APPEARANCE: No apparent distress. Well-appearing Head: atraumatic. EYES: EOMI, RESPIRATORY: No increased rate of breathing CTAB CARDIOVASCULAR: RRR, no peripheral ABDOMINAL: Non-distended soft nontender guarding rebound, left CVA tenderness mild MUSCULOSKELETAl: No obvious deformities NEURO: Alert. Cranial nerves 2-12 grossly intact. Sensation light touch, motor function cerebellar function intact for 4 extremities. Gait exam was normal. SKIN:: Warm, dry. Normal color PSYCHIATRIC: Normal affect Objective Data Vital Signs Vital Signs: Vital Signs - 24 hr 01/21/25 15:11 01/21/25 15:25 01/21/25 15:40 Temperature 99.9 F H Pulse Rate 86 86 88 Respiratory Rate 20 20 18 Blood Pressure 101/63 108/75 111/65 Pulse Oximetry 100 100 100 Oxygen Delivery Simple Face Mask Room Air Room Air Oxygen Flow Rate 8 01/21/25 15:55 01/21/25 18:34 01/21/25 19:11 Temperature 100.6 F H 99.8 F H Pulse Rate 98 102 H Respiratory Rate 16 18 Blood Pressure 120/78 133/83 Pulse Oximetry 98 98 Oxygen Delivery Room Air Oxygen Flow Rate 01/21/25 20:00 01/22/25 00:51 01/22/25 03:11 Temperature 97.4 F L 98.9 F Pulse Rate 102 H 85 74 Respiratory Rate 18 18 18 Blood Pressure 139/77 135/68 Pulse Oximetry 98 99 96 Oxygen Delivery Room Air Oxygen Flow Rate 01/22/25 07:11 01/22/25 08:00 01/22/25 11:11 Temperature 97.3 F L 98.6 F Pulse Rate 73 85 Respiratory Rate 16 16 Blood Pressure 131/70 148/75 H Pulse Oximetry 97 100 Oxygen Delivery Room Air Oxygen Flow Rate Intake/Output Intake/Output: Intake & Output 01/19/25 01/20/25 01/21/25 01/22/25 23:59 23:59 23:59 23:59 Intake Total 1890 300 Balance 1890 300 Meds/Results Medications: Active Medications Generic Name Dose Route Start Last Admin Trade Name Freq PRN Reason Stop Dose Admin Acetaminophen 650 mg 01/21/25 18:25 01/22/25 11:31 Acetaminophen 325 Mg Tablet PO 650 mg Q4H PRN Administration Mild Pain (1-3) or Fever Amlodipine Besylate 5 mg 01/22/25 09:00 01/22/25 08:45 Amlodipine Besylate 5 Mg Tablet PO 5 mg DAILY NICK Administration Ceftriaxone Sodium 1 gm in 50 mls @ 100 mls/hr 01/22/25 08:00 01/22/25 08:47 Rocephin 1 Gm/Ns 50 Ml IVPB 100 mls/hr Q24H INCK Administration Morphine Sulfate 2 mg 01/21/25 17:08 01/22/25 06:50 Morphine Sulfate (*Crx) 2 Mg/Ml Inj IV PUSH 2 mg Q4H PRN Administration Pain Rated 7-10 Radiology Results: ITS Impressions Abdomen/Pelvis CT 01/21/25 07:38 Impression: 7 mm round stone at the proximal ureter with mild to moderate left hydronephrosis. Additional nonobstructing left renal stones, as detailed above. Mild hyperenhancement of the urothelium of the left renal pelvis and proximal ureter. Correlate for ascending urinary tract infection. No definite CT evidence of haresh pyelonephritis. Abdomen X-Ray 01/21/25 08:56 IMPRESSION: Excreted intravenous contrast seen in both collecting systems and the urinary bladder. Moderate left hydronephrosis. Labs Labs: Laboratory Results - last 24 hr 01/22/25 06:26 WBC 7.8 RBC 3.17 L Hgb 10.4 L Hct 32.7 L MCV 103.2 H MCH 32.8 MCHC 31.8 L RDW 13.9 Plt Count 201 MPV 10.2 Immature Gran % (Auto) 0.5 Neut % (Auto) 65.6 Lymph % (Auto) 21.4 [place] % (Auto) 11.8 H Eos % (Auto) 0.3 Baso % (Auto) 0.4 Lymph # (Auto) 1.66 [place] # (Auto) 0.9 H Eos # (Auto) 0.0 Baso # (Auto) 0.0 Abs Immat Gran (auto) 0.04 H Absolute Neuts (auto) 5.1 Absolute Nucleated RBC 0.000 Nucleated RBC % 0.0
[2025-01-22 15:11] VITALS: BP 112/96; PULSE 82; RESP 16; TEMP 37; O2SAT 97
[2025-01-22] MEDS: KETOROLAC 15 MG/ML VIAL (*BKC) IV PUSH (15:25)
--- NOTE | 2025-01-22 16:44 | P.PNAN_ITS ---
Anes - Prog Note Post-Op Date/Time: 01/22/25 16:44 Cardiovascular status: normal Respiratory status: normal Airway patency: baseline Mental status: baseline Post-Op hydration status: normal Vital Signs: Last Vital Signs Temp 98.6 F 01/22/25 15:11 Pulse 82 01/22/25 15:11 Resp 16 01/22/25 15:11 BP 112/96 H 01/22/25 15:11 Pulse Ox 97 01/22/25 15:11 O2 Del Method Room Air 01/22/25 08:00 O2 Flow Rate 8 01/21/25 15:11 Pain Score (VAS): 8 I/O: Intake & Output 01/22/25 01/22/25 01/22/25 07:59 15:59 23:59 Intake Total 300 Balance 300 Laboratory Tests 01/22/25 06:26 01/21/25 06:55 01/22/25 06:26 WBC 7.8 RBC 3.17 L Hgb 10.4 L Hct 32.7 L MCV 103.2 H MCH 32.8 MCHC 31.8 L RDW 13.9 Plt Count 201 MPV 10.2 Immature Gran % (Auto) 0.5 Neut % (Auto) 65.6 Lymph % (Auto) 21.4 [place] % (Auto) 11.8 H Eos % (Auto) 0.3 Baso % (Auto) 0.4 Lymph # (Auto) 1.66 [place] # (Auto) 0.9 H Eos # (Auto) 0.0 Baso # (Auto) 0.0 Abs Immat Gran (auto) 0.04 H Absolute Neuts (auto) 5.1 Absolute Nucleated RBC 0.000 Nucleated RBC % 0.0 Microbiology 01/21/25 07:03 Urine Clean Catch Urine Culture Reflexed - Final Patient Feedback: Patient satisfied with anesthetic care.
[2025-01-22] MEDS: FLUTICASONE PROPIONATE 0.05% NA SPR 16 GM BTL (*BKC) 1 SPRAY NASAL ×2 (16:57→20:48)
[2025-01-22 19:11] VITALS: BP 154/80; PULSE 76; RESP 18; TEMP 37; O2SAT 93
[2025-01-22] MEDS: NORTRIPTYLINE HCL 25 MG CAPSULE 50 MG PO (20:47)
[2025-01-22] MEDS: cefTRIAXone 2 GM/NS 100 ML 2 GM/100 ML BAG IVPB (20:51)
[2025-01-23] MEDS: MORPHINE SULFATE (*CRX) 2 MG/ML INJ IV PUSH (00:41)
[2025-01-23] MEDS: NORTRIPTYLINE HCL 25 MG CAPSULE 50 MG PO (05:54)
[2025-01-23 06:00] VITALS: BP 140/84; PULSE 81; RESP 18; TEMP 37; O2SAT 98
[2025-01-23 07:14] LABS: Basophils Percent Auto 0.4 % (0.2-1.2); Eosinophils Absolute Auto 0.1 K/mm3 (0-0.3); Eosinophils Percent Auto 1.8 % (0-4.4); Hematocrit 32.9 % (37.0-47.0); Hemoglobin 10.6 g/dL (12.0-15.0); Immature Granulocyte Absolute 0.03 K/mm3 (0.00-0.031); Immature Granulocyte Percent A 0.5 % (0-0.5); Lymphocytes Absolute Auto 1.49 K/mm3 (0.9-3.2); Lymphocytes Percent Auto 26.5 % (18.3-44.2); Mean Corpuscular HGB Conc 32.2 g/dl (32-36); Mean Corpuscular Hemoglobin 33.2 pg (26-34); Mean Corpuscular Volume 103.1 fl (80-100); Mean Platelet Volume 10.3 fl (7.4-10.4); Monocytes Absolute Auto 0.8 K/mm3 (0.1-0.6); Monocytes Percent Auto 14.2 % (2.6-8.5); Neutrophils Absolute Auto 3.2 K/mm3 (1.3-6.7); Neutrophils Percent Auto 56.6 % (45.5-73.1); Platelet Count Result 228 k/mm3 (150-375); Red Blood Count 3.19 M/mm3 (4.2-5.4); Red Cell Distribution Width 13.8 % (11.5-14.5); White Blood Count 5.6 K/mm3 (4.5-10.0)
[2025-01-23 07:27] LABS: Alanine Aminotransferase 15 U/L (6-35); Albumin Level 3.3 g/dL (3.5-5.1); Alkaline Phosphatase 52 U/L (38-126); Anion Gap 7 mmol/L (4-12); Aspartate Amino Transferase 24 U/L (14-36); Bilirubin,Total 0.2 mg/dL (0.2-1.3); Blood Urea Nitrogen 6 mg/dL (7-17); Calcium 8.2 mg/dL (8.4-10.2); Carbon Dioxide 26 mmol/L (22-30); Chloride 104 mmol/L (98-107); Estimated CRCL calculation 70 ml/min; Estimated Glomerular Filt Rate > 60; Glucose 128 mg/dL (65-110); Magnesium 1.9 mg/dL (1.6-2.3); Sodium 137 mmol/L (137-145)
[2025-01-23 08:00] VITALS: PULSE 81; RESP 18; O2SAT 98
[2025-01-23] MEDS: amLODIPine BESYLATE 10 MG TABLET PO (09:47)
[2025-01-23] MEDS: PANTOPRAZOLE 40 MG TABLET PO (09:47)
[2025-01-23] MEDS: LEFLUNOMIDE 20 MG TABLET PO (09:47)
[2025-01-23] MEDS: FLUTICASONE PROPIONATE 0.05% NA SPR 16 GM BTL (*BKC) 1 SPRAY NASAL (09:47)
[2025-01-23] MEDS: POTASSIUM CHLORIDE 20 MEQ ER TABLET 40 MEQ PO (10:55)
--- NOTE | 2025-01-23 12:00 | WPDUROPN2 ---
Progress Note: A&P Assessment and Plan (1) Ureteral stone: Code(s): N20.1 - Calculus of ureter Status: Acute (2) UTI (urinary tract infection): Code(s): N39.0 - Urinary tract infection, site not specified Status: Acute Plan 54-year-old female with obstructing stone status post left ureteral stent insertion postop day 2. -urine culture growing E coli. Plan discharge home on 14 day course of culture appropriate antibiotics -plan outpatient follow-up for definitive stone management Subjective Subjective Date/Time Seen: 01/23/25 12:00 Interval history: Patient feeling much better today Exam Narrative: Patient is awake and alert no acute distress. Her breathing is unlabored Objective Data Vital Signs Vital Signs: Vital Signs - 24 hr 01/22/25 15:11 01/22/25 19:11 01/22/25 20:47 Temperature 37.0 C 37.0 C Pulse Rate 82 76 Respiratory Rate 16 18 Blood Pressure 112/96 H 154/80 H Pulse Oximetry 97 93 Oxygen Delivery Room Air 01/23/25 06:00 01/23/25 08:00 Temperature 37.0 C Pulse Rate 81 81 Respiratory Rate 18 18 Blood Pressure 140/84 Pulse Oximetry 98 98 Oxygen Delivery Room Air Intake/Output Intake/Output: Intake & Output 01/20/25 01/21/25 01/22/25 01/23/25 23:59 23:59 23:59 23:59 Intake Total 1890 400 790 Balance 1890 400 790 Meds/Results Medications: Active Medications Generic Name Dose Route Start Last Admin Trade Name Freq PRN Reason Stop Dose Admin Acetaminophen 650 mg 01/21/25 18:25 01/22/25 11:31 Acetaminophen 325 Mg Tablet PO 650 mg Q4H PRN Administration Mild Pain (1-3) or Fever Amlodipine Besylate 10 mg 01/23/25 09:00 01/23/25 09:47 Amlodipine Besylate 10 Mg Tablet PO 10 mg QAM NICK Administration Fluticasone Propionate 1 spray 01/22/25 15:00 01/23/25 09:47 Fluticasone Propionate 0.05% Na Spr 16 Gm Btl (*Bkc) NASAL 1 spray Q12HR NICK Administration Ceftriaxone Sodium 2 gm in 100 mls @ 200 mls/hr 01/22/25 21:00 01/22/25 21:21 Rocephin 2 Gm/Ns 100 Ml IVPB Infused Q24H NICK Infusion Ketorolac Tromethamine 15 mg 01/22/25 15:08 Ketorolac 15 Mg/Ml Vial (*Bkc) IV PUSH Q6H PRN Pain Rated 4-6 Leflunomide 20 mg 01/23/25 09:00 01/23/25 09:47 Leflunomide 20 Mg Tablet PO 20 mg DAILY NICK Administration Morphine Sulfate 2 mg 01/21/25 17:08 01/23/25 00:41 Morphine Sulfate (*Crx) 2 Mg/Ml Inj IV PUSH 2 mg Q4H PRN Administration Pain Rated 7-10 Nortriptyline HCl 50 mg 01/22/25 15:12 01/23/25 05:54 Nortriptyline Hcl 25 Mg Capsule PO 50 mg TID PRN Administration migraine headache Pantoprazole Sodium 40 mg 01/23/25 09:00 01/23/25 09:47 Pantoprazole 40 Mg Tablet PO 40 mg Q12HR NICK Administration Radiology Results: ITS Impressions Abdomen/Pelvis CT 01/21/25 07:38 Impression: 7 mm round stone at the proximal ureter with mild to moderate left hydronephrosis. Additional nonobstructing left renal stones, as detailed above. Mild hyperenhancement of the urothelium of the left renal pelvis and proximal ureter. Correlate for ascending urinary tract infection. No definite CT evidence of haresh pyelonephritis. Abdomen X-Ray 01/21/25 08:56 IMPRESSION: Excreted intravenous contrast seen in both collecting systems and the urinary bladder. Moderate left hydronephrosis. Labs Labs: Laboratory Results - last 24 hr 01/23/25 06:27 WBC 5.6 RBC 3.19 L Hgb 10.6 L Hct 32.9 L MCV 103.1 H MCH 33.2 MCHC 32.2 RDW 13.8 Plt Count 228 MPV 10.3 Immature Gran % (Auto) 0.5 Neut % (Auto) 56.6 Lymph % (Auto) 26.5 Barry % (Auto) 14.2 H Eos % (Auto) 1.8 Baso % (Auto) 0.4 Lymph # (Auto) 1.49 Barry # (Auto) 0.8 H Eos # (Auto) 0.1 Baso # (Auto) 0.0 Abs Immat Gran (auto) 0.03 Absolute Neuts (auto) 3.2 Absolute Nucleated RBC 0.000 Nucleated RBC % 0.0 Sodium 137 Potassium 3.0 L Chloride 104 Carbon Dioxide 26 Anion Gap 7 BUN 6 L Creatinine 0.55 L Estim Creat Clear Calc 70 Estimated GFR > 60 Glucose 128 H Calcium 8.2 L Magnesium 1.9 Total Bilirubin 0.2 AST 24 ALT 15 Alkaline Phosphatase 52 Total Protein 6.0 L Albumin 3.3 L rine Culture Final 01/22/25-1443 Q Organism 1 Escherichia Coli SOURCE: URINE CC STATUS: FINAL ISOLATE 1: Greater than 100,000 CFU/mL of Escherichia coli NOTE: THIS RESULT IS FLAGGED ABNORMAL THIS TEST WAS PERFORMED AT: [id number] [address] ANKUSH COVINGTON MD 1. Escherichia Coli M.I.C. RX --------- --- Amoxicillin/Clavulanate 16 I Ampicillin/Sulbactam >=32 R Cefazolin <=4 NR For infections other than uncomplicated UTI caused by E. coli, K. pneumoniae or P. mirabilis: Cefazolin is resistant if ANI > or = 8 mcg/mL. (Distinguishing susceptible versus intermediate for isolates with ANI < or = 4 mcg/mL requires additional testing.) For uncomplicated UTI caused by E. coli, K. pneumoniae or P. mirabilis: Cefazolin is susceptible if ANI <32 mcg/mL and predicts susceptible to the oral agents cefaclor, cefdinir, cefpodoxime, cefprozil, cefuroxime, cephalexin and loracarbef. Ceftazidime <=1 S Cefepime <=0.12 S Ceftriaxone <=0.25 S Ciprofloxacin <=0.06 S Levofloxacin <=0.12 S Gentamicin <=1 S Imipenem <=0.25 S Meropenem <=0.25 S Nitrofurantoin <=16 S Piperacillin/Tazobactam <=4 S Trimethoprim/Sulfamethoxazole <=20 S Legend: S = Susceptible I = Intermediate R = Resistant NS = Not susceptible SDD = Susceptible Dose Dependent * = Not Tested NR = Not Reported NN = See Therapy Comments
--- NOTE | 2025-01-23 12:17 | PM.DS ---
DS: Admitting Diagnosis Discharge Date 01/23/2025 Admitting Diagnosis Flank pain DS: Discharge Diagnosis Discharge Diagnosis (1) Right renal stone: Code(s): N20.0 - Calculus of kidney Status: Acute (2) UTI (urinary tract infection): Code(s): N39.0 - Urinary tract infection, site not specified Status: Acute (3) Essential (primary) hypertension: Code(s): I10 - Essential (primary) hypertension Status: Inactive DS: Summary Hospital Course Hospital Course: This is a 54-year-old female came to ER with complaints of having fever, chills, nausea, vomiting and left flank pain going on since yesterday. Patient had a fever of 101 yesterday. After she developed urinary symptoms she developed body aches nausea vomiting and a headache on the top her head. Headache is on top of her head behind her eyes and described as a pressure. Patient denies loss of consciousness, visual changes, chest pain breathing, diarrhea, neck pain. Patient work up in ER showed she has a right ureter stone and hydronephrosis. Cultures were done and antibiotics started. Urology saw the patient and status post left ureteral stent placement 01/21/2025. Obstructive uropathy with UTI. Left hnge-ed-hzsggjnw hydronephrosis noted on CT with left proximal ureteral stone Status post stent placement. Follow-up with urology as outpatient basis. Headache seems sinus. Started on Flonase nasal spray. Toradol does have history of migraine. Received Fioricet at night. Improved with nortriptyline. Likely related to migraine. UTI. Recent urine culture with E coli fairly pansensitive except for MP sulbactam and Augmentin. Switched to oral at discharge. Moderate arthritis History of colon polyps History of psoriatic arthritis Essential hypertension DVT prophylaxis SCDs Code status full code Time Spent with Patient Time attestation: Total time spent providing and/or coordinating discharge services: 35 minutes Exam Narrative: APPEARANCE: No apparent distress. Well-appearing Head: atraumatic. EYES: EOMI, RESPIRATORY: No increased rate of breathing CTAB CARDIOVASCULAR: RRR, no peripheral ABDOMINAL: Non-distended soft nontender MUSCULOSKELETAl: No obvious deformities NEURO: Alert. Cranial nerves 2-12 grossly intact. Sensation light touch, motor function cerebellar function intact for 4 extremities. Gait exam was normal. SKIN:: Warm, dry. Normal color PSYCHIATRIC: Normal affect DS: Data Data Completed and Pending Labs on day of discharge: Labs from last 24 hours 01/23/25 06:27 WBC 5.6 RBC 3.19 L Hgb 10.6 L Hct 32.9 L MCV 103.1 H MCH 33.2 MCHC 32.2 RDW 13.8 Plt Count 228 MPV 10.3 Immature Gran % (Auto) 0.5 Neut % (Auto) 56.6 Lymph % (Auto) 26.5 Bland % (Auto) 14.2 H Eos % (Auto) 1.8 Baso % (Auto) 0.4 Lymph # (Auto) 1.49 Bland # (Auto) 0.8 H Eos # (Auto) 0.1 Baso # (Auto) 0.0 Abs Immat Gran (auto) 0.03 Absolute Neuts (auto) 3.2 Absolute Nucleated RBC 0.000 Nucleated RBC % 0.0 Sodium 137 Potassium 3.0 L Chloride 104 Carbon Dioxide 26 Anion Gap 7 BUN 6 L Creatinine 0.55 L Estim Creat Clear Calc 70 Estimated GFR > 60 Glucose 128 H Calcium 8.2 L Magnesium 1.9 Total Bilirubin 0.2 AST 24 ALT 15 Alkaline Phosphatase 52 Total Protein 6.0 L Albumin 3.3 L Procedures/Treatments: Procedure Note - Detailed Date of Procedure 01/21/25 Pre-op Diagnosis Left ureteral stone / UTI Post-op Diagnosis Same Procedure Performed Cystoscopy, left ureteral stent placement Surgeon Joe Chavez MD Anesthesia General Description of Procedure The patient was brought to the operative suite where she was prepped and draped in a routine sterile fashion while in the dorsal lithotomy position. A 19 F rigid cystoscope was placed in her bladder and the bladder was circumferentially inspected. The bladder neck and urethra were endoscopically normal. The bladder mucosa was without hyperemia. There was no intravesical foreign body or neoplasm. There was a single orthotopic ureteral orifice bilaterally. Contrast is still present in the left renal pelvis from recent CT scan. I advanced .035 glidewire into the [] renal pelvis under fluoroscopy. A 4.8F variable length ureteral stent was positioned with the proximal coil in the renal pelvis and the distal coil in the bladder. Scopes and wires were removed after emptying the patient's bladder. Drains Yes Packing No Pathology None sent Complications No immediate complications Condition Stable Imaging Radiologist's impression: ITS Impressions Abdomen/Pelvis CT 01/21/25 07:38 Impression: 7 mm round stone at the proximal ureter with mild to moderate left hydronephrosis. Additional nonobstructing left renal stones, as detailed above. Mild hyperenhancement of the urothelium of the left renal pelvis and proximal ureter. Correlate for ascending urinary tract infection. No definite CT evidence of haresh pyelonephritis. Abdomen X-Ray 01/21/25 08:56 IMPRESSION: Excreted intravenous contrast seen in both collecting systems and the urinary bladder. Moderate left hydronephrosis. Discharge Plan Discharge Attending physician on discharge: Micha White Consulting providers: Yair Maldonado Discharging Clinician: Micha White Anticipated Discharge Date/Time: 01/23/25 12:21 Patient Disposition: Home Activity: as tolerated Diet: regular Patient Instructions: Antibiotic Form Patient Language: Polish Stand Alone Forms: General Discharge Information Follow-up/Referrals: Yair Maldonado MD [Physician] - 2 Weeks Dallin,Hayley Jimenez NP [Primary Care Provider] - 1 Week Discharge Medications: New fluticasone propionate 50 mcg/actuation [place],Suspension 1 spray intranasal Q12HR Qty: 30 0RF Continued Cimzia 200 mg/mL syringe kit 200 mg subcut ONCE leflunomide 20 mg tablet 20 mg PO DAILY amlodipine [Norvasc] 5 mg Tablet 10 mg PO QAM Qty: 60 0RF omeprazole 40 mg capsule,delayed release(DR/EC) 40 mg PO DAILY PRN (Reason: heartburn) nortriptyline 50 mg capsule 50 mg PO TID PRN (Reason: migraine headache) prednisone 5 mg tablet 5 mg PO TID PRN (Reason: RA flair up) ciprofloxacin HCl 500 mg tablet 500 mg PO Q12H 13 Days Qty: 14 0RF Date of admission: 01/21/25 08:14 Primary Care Provider: Dallin,Hayley Jimenez Admitting Provider: Damian Alvarado Attending physician on admission: Damian Alvarado Condition: Stable
== END 2025-01-23 13:10 | disposition home or self-care (01) | DRG 661 ==
LOC: ANHED 08:16 → ANH3MEDSUR 08:59
PROVIDERS: Emergency Medicine; Urology; Admitting Provider Internal Medicine; Emergency Provider Emergency Medicine; PCP Nurse Practitioner Family; Visit Provider Internal Medicine
PROC: 0T778ZZ Dilation of Left Ureter, Via Natural or Artificial Opening Endoscopic (ICD-10-PCS; CPT 52352; principal; 2025-01-21 13:00)
DX: N13.6 Pyonephrosis (principal); I10 Essential (primary) hypertension; L40.50 Arthropathic psoriasis, unspecified; M06.9 Rheumatoid arthritis, unspecified; B96.20 Unspecified Escherichia coli [E. coli] as the cause of diseases classified elsewhere
CPT/HCPCS: 36415; 74018; 74177; 80053; 81001; 81025; 83690; 83735; 85025; 87040; 87086; 96361; 96374; 96375; 99285; A9270; C1769; C2617; J0696; J1885; J2003; J2270; J2405; J2704; J3010; J7030; J7120; Q9967

== ENCOUNTER 2025-03-01 16:45 | Outpatient (CLI) | payer OTHER, SELFPAY ==
--- NOTE | ~2025-03-01 | XR_ITS ---
Supine and upright views of the abdomen Clinical history: Left ureteral stone COMPARISON: 01/21/2025 Findings: Bowel gas pattern is nonspecific. No evidence for obstruction or free air. Small left renal stone present. Calcified pelvic phleboliths are present. Osseous structures are intact. Impression: Small left renal stone. Reviewed, dictated and finalized at [facility]. Impression: Small left renal stone.
--- OUTSIDE RECORDS SUMMARY | 2025-03-01 16:48 | XMS_ITS | Referral Summary ---
Author Organization [facility] Address [address] [place] [address] Care Team Providers Care Nursery Helper Name Role Phone Bolivar Rowland NP Primary Care Provider Allergies No known active allergies Medications hyoscyamine [...] on file Legal Sex Female 3:06 PM URGENT CARE Gender Identity Not on file Sexual Orientation Not on file Last Filed Vital Signs Vital Sign Reading Time Taken Comments Blood Pressure 98/86 09/02/2023 12:30 PM URGENT CARE Pulse 73 09/02/2023 12:30 PM URGENT CARE Temperature 36.1 C (97 F) 09/02/2023 9:30 AM URGENT CARE Respiratory Rate 19 09/02/2023 12:30 PM URGENT CARE Oxygen Saturation 99% 09/02/2023 12:30 PM URGENT CARE Inhaled Oxygen Concentration - - Weight 72.6 kg (160 lb) 09/02/2023 9:30 AM URGENT CARE Height 152.4 cm (5') 09/02/2023 9:30 AM URGENT CARE Body Mass Index 31.25 09/02/2023 9:30 AM URGENT CARE Plan of Treatment Not on file Procedures [...] Female Attending MD: Elvia Holliday Room: [facility] ENDOSCOPY ROOM 5 Note Status: [...] scope was passed under direct vision.The CF [id number] endoscope was introduced throughthe anus and advanced to the cecum, identified by appendiceal orifice and ileocecal valve. The colonoscopy was performed without difficulty. The patient tolerated the procedure well. The quality of the bowel preparation was evaluated using the BBPS ([place] Bowel Preparation Scale) with scores of:Right Colon [...] On: 04/14/2019 8:54 AM Recognized by the [employer] for promoting quality in endoscopy Emi Pinedo MD ENDOSCOPY PROCEDUR ES Final Result from Last 3 Months or Most Recently Relevant to Health Maintenance Insurance [facility] [place] [id number] Advance Directives For more information, please contact: [phone] * Full Code (Latest Code Status on File) Date Activated Date Inactivated Comments 04/14/2019 8:23 AM 04/14/2019 2:43 PM Care Teams Nursery Helper Relationship Specialty Start Date End Date Bolivar Rowland NP [address] [place] [address] PCP - General Family Medicine 12/12/23
--- OUTSIDE RECORDS SUMMARY | 2025-03-01 16:48 | XMS_ITS | Clinical Summary ---
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 Gender Identity Not on file Sexual Orientation Not on file Obstetrics History Last Filed Vital Signs Vital Sign Reading Time Taken Comments Blood Pressure 98/86 09/02/2023 12:30 PM MOTOR VEHICLE LICENSE CLERK Pulse 73 09/02/2023 12:30 PM MOTOR VEHICLE LICENSE CLERK Temperature 36.1 C (97 F) 09/02/2023 9:30 AM MOTOR VEHICLE LICENSE CLERK Respiratory Rate 19 09/02/2023 12:30 PM MOTOR VEHICLE LICENSE CLERK Oxygen Saturation 99% 09/02/2023 12:30 PM MOTOR VEHICLE LICENSE CLERK Inhaled Oxygen Concentration - - Weight 72.6 kg (160 lb) 09/02/2023 9:30 AM MOTOR VEHICLE LICENSE CLERK Height 152.4 cm (5') 09/02/2023 9:30 AM MOTOR VEHICLE LICENSE CLERK Body Mass Index 31.25 09/02/2023 9:30 AM MOTOR VEHICLE LICENSE CLERK Plan of Treatment Health Maintenance Due Date Last Done Comments Breast Cancer Screening-Mammogram 1969 Depression Screening 1969 Hepatitis C Screening 1969 Hepatitis B Screening 1987 Regular Well Visit/Exam 18-64 1987 Pneumococcal vaccine <65 (1 of 2 - PCV) 1988 Zoster Vaccine (1 of 2) 1988 DTaP/Tdap/Td Vaccine (1 - Tdap) 12/09/2012 3 Influenza Vaccine (#1) 2025 Colon Cancer Screening-Colonoscopy 04/14/20292018 Colon Cancer [...] Gender: Female Attending MD: Elvia Holliday Room: [facility] ENDOSCOPY ROOM 5 Note Status: [...] The scope was passed under direct vision.The [id number] endoscope was introduced throughthe anus and advanced to the cecum, identified by appendiceal orifice and ileocecal valve. The colonoscopy was performed without difficulty. The patient tolerated the procedure well. The quality of the bowel preparation was evaluated using the BBPS ([place] Bowel Preparation Scale) with scores of:Right Colon [...] On: 04/14/2019 8:54 AM Recognized by the [employer] for promoting quality in endoscopy Emi Pinedo MD ENDOSCOPY PROCEDUR ES Final Result from Last 3 Months or Most Recently Relevant to Health Maintenance Insurance [facility] [place] [id number] Advance Directives For more information, please contact: [phone] * Full Code (Latest Code Status on File) Date Activated Date Inactivated Comments 04/14/2019 8:23 AM 04/14/2019 2:43 PM Care Teams Recording Artist Relationship Specialty Start Date End Date Bolivar Rowland NP [address] [address] PCP - General Family Medicine 12/12/23
--- OUTSIDE RECORDS SUMMARY | 2025-03-01 16:48 | XMS_ITS | Encounter Summary ---
Author Organization [facility] Address [address] [place] [address] Care Team Providers Care Chief Of Safety And Protection Name Role Phone Candida Sellers PIPE LINE MAINTENANCE SUPERVISOR Primary Care Provider [phone] Kelley Stevens TELE TECH- Primary Care Provider + Bolivar Rowland PIPE LINE MAINTENANCE SUPERVISOR Primary Care Provider [phone] Encounter Details Date Type Department Care Team (Late st Contact Info) Description 01/27/2023 Introhive Message Enc [facility] Family & Internal Medicine [address] [address] Luis, [facility] Provider appt Social History Tobacco Use Types [...] CDT Gender Identity Female 08/15/2021 5:25 AM ESCALATOR CONSTRUCTOR Sexual Orientation Straight 08/15/2021 5: 25 AM ESCALATOR CONSTRUCTOR 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, shoveling, pickaxing, heavy lifting Not on [...] Total Score: 4 07/26/20 22 10:46 AM ESCALATOR CONSTRUCTOR documented as of this encounter Care Teams Chief Of Safety And Protection Relationship Specialty [place] [address] [address], [address] [place] [address] PCP - General Nurse Practitioner Family 11/01/2201/26 Kelley Stevens, [facility]- [address] [address], [address] [place] [address] PCP - General Nurse Practitioner Family 02/20/2303/03 Bolivar Rowland NP [address] [place] [address] PCP - General Nurse Practitioner Family 03/04/23 documented as of this encounter
--- OUTSIDE RECORDS SUMMARY | 2025-03-01 16:48 | XMS_ITS | Clinical Summary ---
Author Organization [facility] Address [address] [place] [address] Care Team Providers Care Law Firm Receptionist Name Role Phone Bolivar Rowland BIRDIE-BOW MAKING MACHINE OPERATOR Primary Care Provider [phone] Source Comments [facility],non-owned Affiliates and Associated Physician Practices is amultiple site organization consisting of ambulatory clinics and hospital sitesin [place], [place], [place] and [place]. This disclosure is being madepursuant to the Care Everywhere program and may not contain all information available regarding this patient. Last updated 18.[facility] Allergies No known active allergies Medications * [...] Last Done Comments COLOGUARD (AGES 45-75) - COLON CA SCREENING 1969 CT COLONOGRAPHY - COLON CA SCREENING 1969 FIT - COLON CA SCREENING 1969 FLEX SIG - COLON CA SCREENING 1969 MAMMOGRAM 1969 DTAP/TDAP/TD VACCINES (1 - Tdap) 1988 HEPATITIS B VACCINE (1 of 3 - 19+ 3-dose series) 1988 PAP SMEAR 1990 LUNG CANCER SCREENING 2019 PNEUMOCOCCAL VACCINE 50+ (1 of 1 - PCV) 2019 ZOSTER VACCINE (1 of 2) 2019 COVID-19 VACCINE (1 - ) 03/28/2024 DEPRESSION SCREENING 07/28/2024 INFLUENZA VACCINE (#1) 2025 SCREENING FOR DIABETES 12/01/2026 , 12/02/2023, 10/23/2021, Additional history exists LIPID TESTING 11/26/2028 11/27/2023, 04/2 03/2021, 09/07/2013 COLON MONITORING 04/14/2029 04/14/2019 COLONOSCOPY - COLON CA SCREENING 04/14/2029 04/14/2019 [...] A/C/Y/W VACCINE Aged Out No longer eligible based [...] Resulting Agency Comment [facility]: [facility] [address] [facility] [id number] Sonia Kinney MD LAB - CHEMISTRY ORDERABLE S Final Result [facility] INSURANCE BILL [address] [place] [address] * HIV-1 HIV-2 ANTIBODY + HIV P24 AG PANEL (10/23/2021 12:38 PM CDT) Pathologist [facility] HIV1/2 Ab + P24 Ag Non Reactive Non Reactive 10/23/2021 1:27 PM CDT [facility] Blood BLOOD SPECIMEN / Unknown Venipuncture / Unknown 10/23/2021 12:38 PM CDT 10/23/2021 12:38 PM CDT Narrative [facility] - 10/23/2021 1:27 PM CDT No Laboratory evidence of HIV infection. Diallo Cochran MD LAB - CHEMISTRY ORDERABLES Zena l Result [facility] [address] [place] [address] * COMPREHENSIVE METABOLIC PANEL (10/23/2021 12:38 PM CDT) [facility] Glucose 87 70 - 105 mg/dL 10/23/2021 1:02 PM CDT [facility] Sodium 144 136 - 145 mmol/L 10/23/2021 1:02 PM CDT [facility] Potassium 3.9 3.5 - 5.1 mmol/L 10/23/2021 1:02 PM CDT [facility] Chloride 106 98 - 107 mmol/L 10/23/2021 1:02 PM CDT [facility] CO2 26 23 - 31 mmol/L 10/23/2021 1:02 PM CDT [facility] Calcium 10.3 8.4 - 10.4 mg/dL 10/23/2021 1:02 PM CDT [facility] Anion Gap 12 8 - 18 mmol/L 10/23/2021 1:02 PM CDT [facility] BUN 10 9.8 - 20.1 mg/dL 10/23/2021 1:02 PM CDT [facility] Creatinine 0.72 0.57 - 1.11 mg/dL 10/23/2021 1:02 PM CDT [facility] Alkaline Phosphatase 71 40 - 150 U/L 10/23/2021 1:02 PM CDT [facility] ALT 14 0 - 61 U/L 10/23/2021 1:02 PM CDT [facility] AST 18 5 - 34 U/L 10/23/2021 1:02 PM CDT [facility] Protein Total 8.3 6.4 - 8.3 gm/dL 10/23/2021 1:02 PM CDT [facility] Albumin 5.1 3.5 - 5.2 gm/dL 10/23/2021 1:02 PM CDT [facility] Bilirubin Total 0.8 0.2 - 1.2 mg/dL 10/23/2021 1:02 PM CDT [facility] eGFR by CKD-EPI >90 >=90 mL/min/1.7 3 m2 10/23/2021 1:02 PM CDT [facility] Blood BLOOD SPECIMEN / Unknown Venipuncture / Unknown 10/23/2021 12:38 PM CDT 10/23/2021 12:38 PM CDT Narrative [facility] - 10/23/2021 1:02 PM CDT eGFR result was calculated using the updated CKD-EPI Creatinine Equations (2020). Prior to go live 2021 the eGFR was calculated using the MDRD calculation. Please note Reference Range change. us Debbie Malin PA-C LAB - CHEMISTRY ORDERABLES Final Result [facility] [address] [place] [address] from Last 3 Months or Most Recently Relevant to Health Maintenance Insurance [employer] Advance Directives * Full Code (Latest Code Status on File) Date Activated Date Inactivated Comments 09/20/2019 11:45 PM 09/22/2019 1:39 PM * Full Code Date Activated Date Inactivated Comments 09/20/2019 9:41 PM 09/20/2019 11:45 PM Care Teams Law Firm Receptionist Relationship Specialty Start Date End Date Bolivar Rowland APRN-BOW MAKING MACHINE OPERATOR [address] [place] [id number] PCP - General 11/13/23
--- OUTSIDE RECORDS SUMMARY | 2025-03-01 16:48 | XMS_ITS | Encounter Summary ---
Author Organization [facility] Address [address] [place] [id number] Care Team Providers Care Drilling And Production Superintendent Name Role Phone Juan J Arias MD Primary Care Provider U Candida Yen PEARL DIGGER Primary Care Provider [phone] Kelley Stevens [facility] Primary Care Provider + Bolivar Rowland PEARL DIGGER Primary Care Provider [phone] Encounter Details Date Type Department Care Team (Latest Contact Info) Description 04/02/2018 Abstract [facility] Juan J Arias MD Social History Tobacco Use Types Packs/Day Years Used Date Smoking Tobacco: Smoker, Current Status Unknown Comments Unknown Sex and Gender Information Value Date Recorded Sex Assigned at Not on file Legal Sex Female 10:44 PM CDT Gender Identity Female 08/15/2021 5:25 AM RUBBER STAMP DIES INSPECTOR Sexual Orientation Straight 08/15/2021 5: 25 AM RUBBER STAMP DIES INSPECTOR documented as of this encounter Plan of Treatment Not on file documented as of this encounter Visit Diagnoses Not on filedocumented in this encounter Additional Health Concerns Infection Onset Date Last Indicated Resolved Time COVID-19 Rule Out 08/03/2020 08/03/2020 08/03/2020 2:20 PM RUBBER STAMP DIES INSPECTOR COVID-19 Rule Out 08/03/2020 08/03/2020 08/05/2020 10:40 PM RUBBER STAMP DIES INSPECTOR COVID-19 Rule Out 04/24/2021 04/24/2021 04/24/2021 2:59 PM CDT COVID-19 Rule Out 08/15/2021 08/15/2021 08/15/2021 10:48 AM RUBBER STAMP DIES INSPECTOR COVID-19 Confirmed 08/15/2021 08/15/2021 12:32 AM RUBBER STAMP DIES INSPECTOR COVID-19 Rule Out 03/25/2022 03/25/2022 03/25/2022 4:44 PM CDT COVID-19 Confirmed 03/25/2022 03/25/2022 12:32 AM CDT COVID-19 Rule Out 12/02/2023 12/02/2023 12/02/2023 8:58 AM CDT documented as of this encounter Care Teams Drilling And Production Superintendent Relationship Specialty Start Date End Date Juan J Arias MD PCP - General INTERNAL MEDICINE 06/23/19 10/31/22 [place] [address], [address] [place], [place] [id number] PCP - General Nurse Practitioner Family 11/01/22 701/17 Kelley Stevens, HEARING THERAPY TEACHER- [address], [address] [place] [address] PCP - General Nurse Practitioner Family 02/20/2303/03 Bolivar Rowland NP [address] [place] [id number] PCP - General Nurse Practitioner Family 03/04/23 documented as of this encounter
--- OUTSIDE RECORDS SUMMARY | 2025-03-01 16:48 | XMS_ITS | Clinical Summary ---
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 ([facility]) 09/20/2019 08/09/2022 Intentional amphetamine over dose ([facility]) 09/19/2019 08/09/2022 Scabies 02/11/2018 11/23/2020 Immunizations Immunization Administration Dates Next Due COVID-19 Vaccine (Generic) [...] CDT Gender Identity Female 08/15/2021 5:25 AM HEAT TREATING BLUER Sexual Orientation Straight 08/15/2021 5: 25 AM HEAT TREATING BLUER 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, shoveling, pickaxing, heavy lifting Not on [...] Annual Physical 1972 COVID-19 Vaccine (#1) 1974 Hepatitis C 1987 Hepatitis B Vaccines (1 of 3 - 19+ 3-dose series) 1988 Pneumococcal Vaccine: 50+ Ye ars (1 of 2 - PCV) 1988 Zoster Vaccines (1 of 2) 1988 Mammogram Screening 2009 DTaP, Tdap and Td Vaccines ( 1 - Tdap) 12/09/2012 12/08/2012 PHQ-2 (Physician Shafter) 07/28/2024 Colorectal Cancer Screening Colonoscopy (10 Years) 04/14/2029 04/14/2019 Meningococcal B Vaccine Aged Out No l onger eligible based on patient's age to complete this topic Meningococcal Vaccine Aged Out No horace gaurav eligible based on patient's age to complete this topic RSV Immunizations Under 20 Months Aged Out No longer eligible based on patient's age to complete this topic Procedures Procedure Name Priority Date/Time Associated Diagnosis Comments COLONOSCOPY GENERIC (SCAN ORDER) Routine 04/14/2019 from Last 3 Months or Most Recently Relevant to Health Maintenance Results * COLONOSCOPY (04/14/2019) us Documents Scanned SCANNING Edited Result - Final from Last 3 Months or Most Recently Relevant to Health Maintenance Insurance [address] [place], [place] [id number] Care Teams Amusement Ride Operator Relationship Specialty Start Date End Date Bolivar Rowland NP [address] [place] [address] PCP - General Nurse Practitioner Family 03/04/23
== END 2025-03-01 16:46 | disposition home or self-care (01) ==
PROVIDERS: PCP Nurse Practitioner Family; Visit Provider Urology
DX: N20.0 Calculus of kidney (principal)
CPT/HCPCS: 74018